=== PATIENT | female | born 1930 | race Caucasian/White ===

== ENCOUNTER 2016-09-12 10:08 | Emergency (ER) | payer MEDICARE, BC ==
[~2016-09-12 10:08] MED LIST: ACET650S3 PO; DIOV320T PO; MEGE400SUS PO; MIRA255PW PO; PERCOCET PO; SENO8.6T9 PO
--- NOTE | 2016-09-12 11:18 | EDDOCDS ---
Nurse's Notes [facility] Name: Cheli Keys Age: 86 yrs Sex: Female : 1930 Arrival Date: 09/12/2016 Time: 10:08 Bed TR8 Private MD: Jesus Shea Diagnosis: Disruption of traumatic injury wound repair-wound dehiscence following suture closure of left anterior leg laceration Presentation: 09/12 10:13 Presenting complaint: Patient states: pt c/o left lower leg pain since fall on ead 08/21/16. reports had sutures for laceration. pt reports onset of edema with drainage approx 1 week ago. pt has dressing applied to wound. Adult Sepsis Screening: The patient does not have new or worsening altered mentation. Patient's respiratory rate is less than 22. Systolic blood pressure is greater than 100. Patient has a qSOFA score of 0- Negative Sepsis Screen. Suicide/Homicide risk assessment- the patient denies having any suicidal and/or homicidal ideations and does not present with any other emotional, behavioral or mental health complaints. Status: Patient is not a kosher dietary service manager or dependent. Transition of care: patient was not received from another setting of care. 10:13 Acuity: SUZANNA Level 3 ead 10:13 Method Of Arrival: Walkin/Carried/Asstd ead Triage Assessment: 10:16 General: Appears in no apparent distress, comfortable, well nourished, well groomed, ead Behavior is appropriate for age, cooperative, pleasant. Pain: Location: left paez Pain currently is 2 out of 10 on a pain scale. Respiratory: Airway is patent Respiratory effort is even, unlabored, Denies shortness of breath. Derm: pt reports edema and drainage from wound to left paez, dressing in place on arrival. Musculoskeletal: Range of motion intact in all extremities. Historical: - Allergies: PENICILLINS (Rash); SULFA (SULFONAMIDES) (Jaundice); - Home Meds: 1. prednisone 20 mg oral tab 2 times per day - PMHx: Left Kidney Cancer; - PSHx: Appendectomy; Repair of AV Fistula left neck; Releas of abd adhesions; Hysterectomy; - Social history: Smoking status: Patient states was never smoker of tobacco. No barriers to communication noted, The patient speaks fluent Monegasque, Speaks appropriately for age. - Family history: Not pertinent. - : The pt / caregiver states he / she is not on anticoagulants. Home medication list is obtained from the patient. - Exposure Risk Screening:: None identified. Screenin:17 Screening information is obtained from the patient. Fall risk: No risks identified. ead Assistance ADL's: requires no assistance with activities of daily living. Abuse/DV Screen: The patient / caregiver reports he/she is: not in a situation that causes fear, pain or injury. Nutritional screening: No deficits noted. Advance Directives: Currently, there is a health care proxy, Nery Keys (). There is an active DNR order but there is no copy available at this time. There is a living will, but a copy is not available at this time. There is an active Power of Stone Polisher, Trevon ChopraGurdeep Keys (son). Advance directive information has been placed on a prior [facility] medical record, but the patient/ family does not know when. home support is adequate. Assessment: 11:14 General: Appears in no apparent distress, comfortable, Behavior is appropriate for age, ms18 cooperative. Pain: Denies pain. Neurological: Level of Consciousness is awake, alert, obeys commands, Oriented to person, place, time, Moves all extremities. Gait is steady, Speech is normal. Respiratory: Airway is patent Respiratory effort is even, unlabored. Derm: Skin is pink, warm & dry. Pt's wound on her lower L leg bandaged at this time. Vital Signs: 10:11 BP 143 / 72; Pulse 85; Resp 18 S; Temp 97.8(O); Pulse Ox 100% on R/A; Weight 58.06 kg dd6 (R); Height 5 ft. 5 in. (165.10 cm) (R); 10:11 Body Mass Index 21.30 (58.06 kg, 165.10 cm) dd6 Vitals: 10:11 Log In Time: September 12, 2016 at 10:09. dd6 ED Course: 10:11 Patient visited by Sachin Will PCA. dd6 10:11 Jesus Shea is Private Physician. dd6 10:11 Patient moved to Waiting dd6 10:12 Patient moved to Pre RCE dd6 10:15 Triage Initiated ead 10:18 Patient moved to Triage 1 ead 10:19 Patient moved to Triage 2 ead 10:21 Emir Kirk PA-C is PHCP. ar2 10:21 Natalie Mosqueda MD is Attending Physician. ar2 10:21 Patient visited by Emir Kirk PA-C. ar2 10:51 Ken Carbajal MD is Referral Physician. ar2 10:51 Jesus Shea is Referral Physician. ar2 11:12 Patient moved to TR8 ms18 11:14 The patient / caregiver is instructed regarding the plan of care and ED course. Patient ms18 has correct armband on for positive identification. Property sent home with patient. :Personal belongings accompany Pt. 11:14 No IV's were initiated during this patient's visit. No procedures done that require ms18 assistance. 11:15 [facility] Payment Agreement was scanned into [employer] and attached to record. jp5 Order Results: There are currently no results for this order. Outcome: 10:53 Discharge ordered by Provider. ar2 11:14 Discharge Assessment: Patient awake, alert and oriented x 3. No cognitive and/or ms18 functional deficits noted. Patient verbalized understanding of disposition instructions. patient administered narcotics - no. The following High Risk Discharge criteria are identified: None. Discharged to home ambulatory, with significant other. Condition: good Condition: stable Condition: improved. Discharge instructions given to patient, Instructed on discharge instructions, follow up and referral plans. wound care, Demonstrated understanding of instructions, Pt was receptive of discharge instructions/ teaching. No special radiology studies were completed. 11:17 Patient left the ED. ms18 Signatures: Emir Kirk PA-C PA-C ar2 Sachin Will, RODOLFO LEATHER CRAFTER dd6 Sherry Cerrato,RN RN Laurie Cain RN RN ms18 Mamadou Weeks jp5 [facility]
--- NOTE | 2016-09-12 11:18 | EDDOCDS ---
Physician Documentation [facility] Name: Cheli Keys Age: 86 yrs Sex: Female : 1930 Arrival Date: 09/12/2016 Time: 10:08 Bed TR8 Private MD: Jesus Shea Disposition: 09/12/16 10:53 Discharged to Home/Self Care. Impression: Disruption of traumatic injury wound repair - wound dehiscence following suture closure of left anterior leg laceration. - Condition is Stable. - Discharge Instructions: Dressing Change, Wound Care, [id number]. - Medication Reconciliation, Local Pharmacy Hours form. - Follow up: Ken Carbajal MD; When: Call to arrange an appointment; Reason: Recheck today's complaints, Continuance of care. Follow up: Jesus Shea; When: As needed; Reason: Recheck today's complaints, Continuance of care. Follow up: Emergency Department; When: As needed; Reason: signs of infection, severe swelling of the leg, fevers, or trouble breathing. - Problem is new. - Symptoms are unchanged. - Notes: keep wound clean, dry and covered. call Dr. Carbajal's office for continued wound care. you may need a referral from your primary care provider. change dressing once daily or more often as needed. return to ER if you develop worsening symptoms-signs of infection, severe pain, leg swelling, chest pain or trouble breathing Historical: - Allergies: PENICILLINS (Rash); SULFA (SULFONAMIDES) (Jaundice); - Home Meds: 1. prednisone 20 mg oral tab 2 times per day - PMHx: Left Kidney Cancer; - PSHx: Appendectomy; Repair of AV Fistula left neck; Releas of abd adhesions; Hysterectomy; - Social history: Smoking status: Patient states was never smoker of tobacco. No barriers to communication noted, The patient speaks fluent Wolof, Speaks appropriately for age. - Family history: Not pertinent. - : The pt / caregiver states he / she is not on anticoagulants. Home medication list is obtained from the patient. - Exposure Risk Screening:: None identified. Vital Signs: 09/12 10:11 BP 143 / 72; Pulse 85; Resp 18 S; Temp 97.8(O); Pulse Ox 100% on R/A; Weight 58.06 kg / dd6 128 lbs (R); Height 5 ft. 5 in. (165.10 cm) (R); 10:11 Body Mass Index 21.30 (58.06 kg, 165.10 cm) dd6 MDM: 11:15 [facility] Payment Agreement was scanned into [employer] and attached to record. jp5 11:15 Financial registration complete. jp5 Signatures: Emir Kirk PA-C PA-C ar2 Sherry CerratoRN RN Laurie Cain RN RN ms18 Mamadou Weeks jp5 The chart was reviewed and I authenticate all verbal orders and agree with the evaluation and treatment provided.Attachments: 11:15 [facility] Payment Agreement jp5 MTDD
--- NOTE | 2016-09-14 12:18 | EDDOCDS ---
Physician Documentation [facility] Name: Cheli Keys Age: 86 yrs Sex: Female : 1930 Arrival Date: 09/12/2016 Time: 10:08 Bed TR8 Private MD: Jesus Shea Disposition: 09/12/16 10:53 Discharged to Home/Self Care. Impression: Disruption of traumatic injury wound repair - wound dehiscence following suture closure of left anterior leg laceration. - Condition is Stable. - Discharge Instructions: Dressing Change, Wound Care, [id number]. - Medication Reconciliation, Local Pharmacy Hours form. - Follow up: Ken Carbajal MD; When: Call to arrange an appointment; Reason: Recheck today's complaints, Continuance of care. Follow up: Jesus Shea; When: As needed; Reason: Recheck today's complaints, Continuance of care. Follow up: Emergency Department; When: As needed; Reason: signs of infection, severe swelling of the leg, fevers, or trouble breathing. - Problem is new. - Symptoms are unchanged. - Notes: keep wound clean, dry and covered. call Dr. Carbajal's office for continued wound care. you may need a referral from your primary care provider. change dressing once daily or more often as needed. return to ER if you develop worsening symptoms-signs of infection, severe pain, leg swelling, chest pain or trouble breathing Historical: - Allergies: PENICILLINS (Rash); SULFA (SULFONAMIDES) (Jaundice); - Home Meds: 1. prednisone 20 mg oral tab 2 times per day - PMHx: Left Kidney Cancer; - PSHx: Appendectomy; Repair of AV Fistula left neck; Releas of abd adhesions; Hysterectomy; - Social history: Smoking status: Patient states was never smoker of tobacco. No barriers to communication noted, The patient speaks fluent Ukrainian, Speaks appropriately for age. - Family history: Not pertinent. - : The pt / caregiver states he / she is not on anticoagulants. Home medication list is obtained from the patient. - Exposure Risk Screening:: None identified. Vital Signs: 09/12 10:11 BP 143 / 72; Pulse 85; Resp 18 S; Temp 97.8(O); Pulse Ox 100% on R/A; Weight 58.06 kg / dd6 128 lbs (R); Height 5 ft. 5 in. (165.10 cm) (R); 10:11 Body Mass Index 21.30 (58.06 kg, 165.10 cm) dd6 MDM: 11:15 [facility] Payment Agreement was scanned into [employer] and attached to record. jp5 11:15 Financial registration complete. jp5 14:56 T-Sheet-- Draft Copy was scanned into [employer] and attached to record. gb Signatures: Edwige Haines, Reg Reg gb Emir Kirk, PA-C PA-C ar2 Sherry Cerrato,RN RN Laurie CainRN RN ms18 Mamadou Weeks jp5 The chart was reviewed and I authenticate all verbal orders and agree with the evaluation and treatment provided.Attachments: 11:15 [facility] Payment Agreement jp5 14:56 T-Sheet-- Draft Copy gb Chart Complete MTDD
--- NOTE | 2016-09-14 12:18 | EDDOCDS ---
Nurse's Notes [facility] Name: Cheli Keys Age: 86 yrs Sex: Female : 1930 Arrival Date: 09/12/2016 Time: 10:08 Bed TR8 Private MD: Jesus Shea Diagnosis: Disruption of traumatic injury wound repair-wound dehiscence following suture closure of left anterior leg laceration Presentation: 09/12 10:13 Presenting complaint: Patient states: pt c/o left lower leg pain since fall on ead 08/21/16. reports had sutures for laceration. pt reports onset of edema with drainage approx 1 week ago. pt has dressing applied to wound. Adult Sepsis Screening: The patient does not have new or worsening altered mentation. Patient's respiratory rate is less than 22. Systolic blood pressure is greater than 100. Patient has a qSOFA score of 0- Negative Sepsis Screen. Suicide/Homicide risk assessment- the patient denies having any suicidal and/or homicidal ideations and does not present with any other emotional, behavioral or mental health complaints. Status: Patient is not a environmental services attendant or dependent. Transition of care: patient was not received from another setting of care. 10:13 Acuity: SUZANNA Level 3 ead 10:13 Method Of Arrival: Walkin/Carried/Asstd ead Triage Assessment: 10:16 General: Appears in no apparent distress, comfortable, well nourished, well groomed, ead Behavior is appropriate for age, cooperative, pleasant. Pain: Location: left paez Pain currently is 2 out of 10 on a pain scale. Respiratory: Airway is patent Respiratory effort is even, unlabored, Denies shortness of breath. Derm: pt reports edema and drainage from wound to left paez, dressing in place on arrival. Musculoskeletal: Range of motion intact in all extremities. Historical: - Allergies: PENICILLINS (Rash); SULFA (SULFONAMIDES) (Jaundice); - Home Meds: 1. prednisone 20 mg oral tab 2 times per day - PMHx: Left Kidney Cancer; - PSHx: Appendectomy; Repair of AV Fistula left neck; Releas of abd adhesions; Hysterectomy; - Social history: Smoking status: Patient states was never smoker of tobacco. No barriers to communication noted, The patient speaks fluent Japanese, Speaks appropriately for age. - Family history: Not pertinent. - : The pt / caregiver states he / she is not on anticoagulants. Home medication list is obtained from the patient. - Exposure Risk Screening:: None identified. Screenin:17 Screening information is obtained from the patient. Fall risk: No risks identified. ead Assistance ADL's: requires no assistance with activities of daily living. Abuse/DV Screen: The patient / caregiver reports he/she is: not in a situation that causes fear, pain or injury. Nutritional screening: No deficits noted. Advance Directives: Currently, there is a health care proxy, Nery Keys (). There is an active DNR order but there is no copy available at this time. There is a living will, but a copy is not available at this time. There is an active Power of Workforce Management Analyst, Trevon ChopraGurdeep Keys (son). Advance directive information has been placed on a prior [facility] medical record, but the patient/ family does not know when. home support is adequate. Assessment: 11:14 General: Appears in no apparent distress, comfortable, Behavior is appropriate for age, ms18 cooperative. Pain: Denies pain. Neurological: Level of Consciousness is awake, alert, obeys commands, Oriented to person, place, time, Moves all extremities. Gait is steady, Speech is normal. Respiratory: Airway is patent Respiratory effort is even, unlabored. Derm: Skin is pink, warm & dry. Pt's wound on her lower L leg bandaged at this time. Vital Signs: 10:11 BP 143 / 72; Pulse 85; Resp 18 S; Temp 97.8(O); Pulse Ox 100% on R/A; Weight 58.06 kg dd6 (R); Height 5 ft. 5 in. (165.10 cm) (R); 10:11 Body Mass Index 21.30 (58.06 kg, 165.10 cm) dd6 Vitals: 10:11 Log In Time: September 12, 2016 at 10:09. dd6 ED Course: 10:11 Patient visited by Sachin Will PCA. dd6 10:11 Jesus Shea is Private Physician. dd6 10:11 Patient moved to Waiting dd6 10:12 Patient moved to Pre RCE dd6 10:15 Triage Initiated ead 10:18 Patient moved to Triage 1 ead 10:19 Patient moved to Triage 2 ead 10:21 Emir Kirk PA-C is PHCP. ar2 10:21 Natalie Mosqueda MD is Attending Physician. ar2 10:21 Patient visited by Emir Kirk PA-C. ar2 10:51 Ken Carbajal MD is Referral Physician. ar2 10:51 Jesus Shea is Referral Physician. ar2 11:12 Patient moved to TR8 ms18 11:14 The patient / caregiver is instructed regarding the plan of care and ED course. Patient ms18 has correct armband on for positive identification. Property sent home with patient. :Personal belongings accompany Pt. 11:14 No IV's were initiated during this patient's visit. No procedures done that require ms18 assistance. 11:15 [facility] Payment Agreement was scanned into [employer] and attached to record. jp5 14:56 T-Sheet-- Draft Copy was scanned into [employer] and attached to record. gb Order Results: There are currently no results for this order. Outcome: 10:53 Discharge ordered by Provider. ar2 11:14 Discharge Assessment: Patient awake, alert and oriented x 3. No cognitive and/or ms18 functional deficits noted. Patient verbalized understanding of disposition instructions. patient administered narcotics - no. The following High Risk Discharge criteria are identified: None. Discharged to home ambulatory, with significant other. Condition: good Condition: stable Condition: improved. Discharge instructions given to patient, Instructed on discharge instructions, follow up and referral plans. wound care, Demonstrated understanding of instructions, Pt was receptive of discharge instructions/ teaching. No special radiology studies were completed. 11:17 Patient left the ED. ms18 Signatures: Edwige Haines, Reg Reg gb Emir Kirk PA-C PA-C ar2 Sachin Will, MEDICAL OBSERVER MEDICAL OBSERVER dd6 Sherry Cerrato,RN RN Laurie Cain,JULIET RN ms18 Mamadou Weeks jp5 Chart Complete MTDD
--- NOTE | 2016-09-14 12:18 | EDDOCDS ---
Physician Documentation [facility] Name: Cheli Keys Age: 86 yrs Sex: Female : 1930 Arrival Date: 09/12/2016 Time: 10:08 Bed TR8 Private MD: Jesus Shea Disposition: 09/12/16 10:53 Discharged to Home/Self Care. Impression: Disruption of traumatic injury wound repair - wound dehiscence following suture closure of left anterior leg laceration. - Condition is Stable. - Discharge Instructions: Dressing Change, Wound Care, [id number]. - Medication Reconciliation, Local Pharmacy Hours form. - Follow up: Ken Carbajal MD; When: Call to arrange an appointment; Reason: Recheck today's complaints, Continuance of care. Follow up: Jesus Shea; When: As needed; Reason: Recheck today's complaints, Continuance of care. Follow up: Emergency Department; When: As needed; Reason: signs of infection, severe swelling of the leg, fevers, or trouble breathing. - Problem is new. - Symptoms are unchanged. - Notes: keep wound clean, dry and covered. call Dr. Carbajal's office for continued wound care. you may need a referral from your primary care provider. change dressing once daily or more often as needed. return to ER if you develop worsening symptoms-signs of infection, severe pain, leg swelling, chest pain or trouble breathing Historical: - Allergies: PENICILLINS (Rash); SULFA (SULFONAMIDES) (Jaundice); - Home Meds: 1. prednisone 20 mg oral tab 2 times per day - PMHx: Left Kidney Cancer; - PSHx: Appendectomy; Repair of AV Fistula left neck; Releas of abd adhesions; Hysterectomy; - Social history: Smoking status: Patient states was never smoker of tobacco. No barriers to communication noted, The patient speaks fluent Telugu, Speaks appropriately for age. - Family history: Not pertinent. - : The pt / caregiver states he / she is not on anticoagulants. Home medication list is obtained from the patient. - Exposure Risk Screening:: None identified. Vital Signs: 09/12 10:11 BP 143 / 72; Pulse 85; Resp 18 S; Temp 97.8(O); Pulse Ox 100% on R/A; Weight 58.06 kg / dd6 128 lbs (R); Height 5 ft. 5 in. (165.10 cm) (R); 10:11 Body Mass Index 21.30 (58.06 kg, 165.10 cm) dd6 MDM: 11:15 [facility] Payment Agreement was scanned into [email or web address] and attached to record. jp5 11:15 Financial registration complete. jp5 14:56 T-Sheet-- Draft Copy was scanned into [email or web address] and attached to record. gb Signatures: Edwige Haines, Reg Reg gb Emir Kirk, PA-C PA-C ar2 Sherry Cerrato,RN RN Laurie CainRN RN ms18 Mamadou Weeks jp5 The chart was reviewed and I authenticate all verbal orders and agree with the evaluation and treatment provided.Attachments: 11:15 [facility] Payment Agreement jp5 14:56 T-Sheet-- Draft Copy gb Chart Complete MTDD
== END 2016-09-12 11:17 | disposition home or self-care (01) ==
LOC: M ED 10:08
DX: T81.31XA Disruption of external operation (surgical) wound, not elsewhere classified, initial encounter (principal); X58.XXXA Exposure to other specified factors, initial encounter; Y92.89 Other specified places as the place of occurrence of the external cause; Y93.89 Activity, other specified; Y99.8 Other external cause status; C64.2 Malignant neoplasm of left kidney, except renal pelvis; Z90.79 Acquired absence of other genital organ(s); Z90.89 Acquired absence of other organs; Z79.899 Other long term (current) drug therapy; Z88.0 Allergy status to penicillin; Z88.2 Allergy status to sulfonamides

== ENCOUNTER 2016-09-18 09:58 | Inpatient (IN) | payer MEDICARE, BC ==
[2016-09-18] VITALS (7 sets, daily range): BP systolic 89–158; BP diastolic 49–76
[~2016-09-18] VITALS: Ht 165.1 cm; Wt 59.3 kg
[2016-09-18 10:44] LABS: ABG BASE EXCESS 1.6 (-2.0-2.0); ABG DEVICE NASAL CANN; ABG HCO3 23.8 MEQ/L (22.0-26.0); ABG PARTIAL PRESSURE CO2 30.5 mmHg (35.0-45.0); ABG PARTIAL PRESSURE O2 61.1 mmHg (75.0-100.0); ABG STANDARD HCO3 25.8 MEQ/L (22.0-26.0); ABG TOTAL CO2 24.8 MEQ/L (23.0-31.0); ABG pH (ARTERIAL) 7.511 UNITS (7.350-7.450)
[2016-09-18] MEDS ORDERED: ACETAMINOPHEN 325 MG TAB As Ordered ONE (11:12)
[2016-09-18] MEDS ORDERED: CEFEPIME INJ 2 GM VIAL (MAXIPIME) (J0692) As Ordered ONE (11:17)
[2016-09-18 11:42] LABS: MEAN CORPUSCULAR HEMOGLOBIN 31.4 pg (27.0-33.0); MEAN CORPUSCULAR HGB CONC 32.6 g/dl (32.0-36.5); MEAN CORPUSCULAR VOLUME 96.3 fl (80.0-96.0); PLATELET COUNT, AUTOMATED 169 k/mm3 (150-450); RED CELL DISTRIBUTION WIDTH 14.6 % (11.5-14.5); WHITE BLOOD COUNT 4.3 K/mm3 (4.0-10.0)
--- NOTE | 2016-09-18 11:45 | REP ---
AP portable semi upright chest radiograph 09/18/2016 Indication: Shortness of breath Comparison: PA and lateral chest 07/03/12, CT of the abdomen and pelvis 10/07/2014, CT chest 07/08/2013 There is a right IJ venous Port-A-Cath with tip in the expected location of superior vena cava. There is underlying hyperinflation consistent with COPD. Areas of alveolar infiltrate are seen within the medial segment of the right middle lobe and in the left lower lobe distribution. There are no pleural effusions. Impression: Right IJ venous Port-A-Cath with tip in the expected location of the SVC. Infiltrates identified in the medial segment right middle lobe and in the left lower lobe. Follow-up to resolution recommended. COPD Signed by Aaliyah Alcantara MD 09/18/2016 11:36 A
[2016-09-18 11:48] LABS: INR 1.13
[2016-09-18 11:54] LABS: BANDS 7 % (< 11)
[2016-09-18 12:00] LABS: ALBUMIN 3.1 GM/DL (3.2-5.2); ALBUMIN/GLOBULIN RATIO 0.91 (1.00-1.93); BILIRUBIN,DIRECT 0.4 MG/DL (0.0-0.2); BILIRUBIN,TOTAL 1.5 MG/DL (0.2-1.0); CALCIUM LEVEL 7.9 MG/DL (8.8-10.2); CREATININE FOR GFR 1.32 MG/DL (0.55-1.02); GLOMERULAR FILTRATION RATE 40.7 (>32); POTASSIUM SERUM 3.5 MEQ/L (3.5-5.1); TOTAL PROTEIN 6.5 GM/DL (6.4-8.2)
[2016-09-18] MEDS ORDERED: PRED10TA PO (12:08)
[2016-09-18] MEDS ORDERED: ACET50TAOT PO (12:08)
[2016-09-18] MEDS ORDERED: BENA25CA4 PO (12:08)
--- NOTE | 2016-09-18 13:15 | ECGEPIP ---
Stationary ECG Study [facility] - ED Test Date: 2016-09-18 Pat Name: KOSTA JOLLY Department: Room: - Gender: F Senior Architect: ct : 1930 Requested By: LIZBET Mendez Order Number: [id number] Reading MD: Ashley Rico Measurements Intervals [place] Rate: 116 P: 63 HI: 80 QRS: 19 QRSD: 90 T: 67 QT: 305 QTc: 424 Interpretive Statements SINUS TACHYCARDIA WITH SHORT HI INTERVAL ABNORMAL RHYTHM ECG NSTTW ABNORMALITY INCREASED RATE 12/07/11 Electronically Signed On 09-18-2016 13:15:46 EST by Ashley Rico
[2016-09-18] MEDS ORDERED: ACETAMINOPHEN 325 MG TAB PO PRN (15:15)
[2016-09-18] MEDS ORDERED: SODIUM CHLORIDE 0.9% 1000 ML IV ONE (17:00)
--- NOTE | 2016-09-18 17:10 | REP ---
CT of the chest without IV contrast: Comparisons are the portable plain film study of the chest earlier today and chest CT dated 07/08/2013. There are bilateral lower lobe infiltrates, not present on the prior studies. There are infiltrates in the medial lateral segments of the right middle lobe, not present previously. There is no pleural effusion. Thoracic aorta is unremarkable. Cardiac size normal. I suspect there is a small pericardial effusion measuring 7 mm depth, not present on the prior CT studies. There is no mediastinal adenopathy. There are a few normal-sized nodes. The nodes are more numerous than on the comparison CT. In the absence of IV contrast the study is insensitive for hilar adenopathy. There is no axillary adenopathy. The visualized upper abdominal contents are unremarkable. Impression: Bilateral infiltrates as described. No pleural effusion. Normal size mediastinal nodes have increased in number from the prior CT. Signed by Ochoa Stafford MD 09/18/2016 05:02 P
--- NOTE | 2016-09-18 17:16 | EDDOCDS ---
Nurse's Notes [facility] Name: Kosta Keys Age: 86 yrs Sex: Female : 1930 Arrival Date: 09/18/2016 Time: 09:58 Bed 3 Private MD: Jesus Shea Diagnosis: Pneumonia, unspecified organism;Hypotension Presentation: 09/18 10:02 Presenting complaint: EMS states: called to residence by patient's . Allegedly, jc4 patient was attempting to get to toilet, and fell, possibly losing consciousness. assisted patient back to bed. Per EMS, patient complains of weakness. Had been incontinent of stool at home. Care prior to arrival: See EMS report. Glucose check. 95 mg/dl. 10:02 Method Of Arrival: Ambulance jc4 10:05 Presenting complaint: Patient states: "I've been incontinent of urine and feces and I jc4 fell in the bathroom trying to get to the bathroom. I just feel so weak". The last date and time the patient was known to be well was was at an unknown time on an unknown date. No acute neurological deficit is noted. The patients blood glucose was checked before arriving to the hospital and was found to be normal. Suicide/Homicide risk assessment- the patient denies having any suicidal and/or homicidal ideations and does not present with any other emotional, behavioral or mental health complaints. Status: Patient is not a service mechanic or dependent. Transition of care: patient was not received from another setting of care. 10:05 Acuity: SUZANNA Level 3 jc4 10:58 Adult Sepsis Screening: Patient has new or worsening altered mentation (1 point). jc4 Patient's respiratory rate is less than 22. Systolic blood pressure is less than or equal to 100 (1 point). Patient has a qSOFA score of 2. Patient has cough and/or SOB- Positive Sepsis Screen. Notified Lizbet Bishop MD Patient made SUZANNA Level 2. Patient placed in exam room. Charge nurse notified. 10:58 Acuity: SUZANNA Level 2 jc4 Triage Assessment: 10:14 The onset of the patients symptoms was more than three hours ago. General: Appears in jc4 no apparent distress. Pain: Denies pain. Neurological: Level of Consciousness is awake, alert, Reports dizziness. Respiratory: Reports cough that is non-productive. Historical: - Allergies: PENICILLINS (Rash); SULFA (SULFONAMIDES) (Jaundice); - Home Meds: 1. prednisone 10 mg oral tab 1 tab once daily (Last dose: 09/17/2016) - PMHx: Left Kidney Cancer; Hypertension; - PSHx: Appendectomy; Hysterectomy; Release of abd adhesions; - Social history: Smoking status: Patient states was never smoker of tobacco. No barriers to communication noted, The patient speaks fluent Frisian. - Family history: Not pertinent. - : The pt / caregiver states he / she is not on anticoagulants. Home medication list is obtained from the patient. - Exposure Risk Screening:: None identified. Screenin:29 Screening information is obtained from the patient. Fall risk: At risk due to prior ja5 history of falls. Assistance ADL's: requires no assistance with activities of daily living. Abuse/DV Screen: The patient / caregiver reports he/she is: not in a situation that causes fear, pain or injury. Nutritional screening: On. Advance Directives: Currently, there is a health care proxy, Nikki. Neal Keys, . There is an active DNR order There is no living will. There is an active Power of Manager Of Environmental Services, Nery Velezlyvijay, . home support is adequate. Assessment: 11:25 General: Appears in no apparent distress, Behavior is drowsy. Neurological: Level of ja5 Consciousness is awake, lethargic, Oriented to person, place, time. Cardiovascular: Capillary refill < 3 seconds Heart tones S1 S2 present. Respiratory: Airway is patent Respiratory effort is even, unlabored, Respiratory pattern is regular, symmetrical, Breath sounds are clear bilaterally. GI: Reports incontinence. : Reports incontinence. Derm: Skin is fragile, Skin is pink, warm & dry. 12:17 General: Pt is lethargic. B/P 76/41 at this time. Lungs clear. 2nd IVF 500 ml bolus jc4 infusing at this time. at bedside. 13:32 General: Patient resting comfortably in stretcher, still hypotensive, 500 ml IV bolus ja5 #[address] scan.. 13:49 General: Pt returned from CT. Tolerated well. Pt resting comfortably in bed. States "I ld5 feel good". Fluids infusing. Will continue to monitor. 14:17 General: Pt resting on stretcher. No distress noted at this time. Pt alert, speaking jc4 with . Color pink, skin warm and dry. Respirations easy and full. dredge or barge shore hand - sinus rhythm without ectopy. Respirations easy and full. Breath sounds with rales noted in based. Dr. Bishop made aware. Spoke with Dr. Colón regarding patient condition. Received orders to maintain IVF at 100 cc/hour. 15:44 General: Patient in stretcher resting, alert upon arousal, denies pain and stated she ja5 is comfortable. IV fluids infusing at 100 ml/hr with BP 112/56 at this time.. 16:18 General: Patient asleep, alert upon arousal, denies pain at this time. Nasal cannula ja5 placed on patient 4/L/min O2 and is sustaining O2 sat 91-95%, will continue to monitor. . 16:31 General: Patient O2 sats did not tolerate the nasal cannula, patient was placed on a ja5 venti mask at 50% O2 and is sustaining O2 sat 95% at this time. . 17:06 General: Appears in no apparent distress, comfortable, Behavior is cooperative, drowsy. ja5 Neurological: Level of Consciousness is awake, Oriented to person, place, time. Cardiovascular: Capillary refill < 3 seconds. Respiratory: Airway is patent Respiratory effort is even, unlabored, Respiratory pattern is regular, symmetrical, Breath sounds with rales expiratory bilaterally. Derm: Skin is intact, is fragile, Skin is pale. Vital Signs: 10:17 BP 100 / 54; Pulse 122; Resp 18; Temp 101.9(TE); Pulse Ox 83% on 5 lpm NC; nb2 10:35 Weight 71.21 kg (M); Height 5 ft. 4 in. (162.56 cm) (R); ja5 10:39 BP 90 / 51 (auto/); jc4 10:40 Pulse 110 MON; Pulse Ox 95% ; jc4 10:45 BP 97 / 47 (auto/); jc4 10:46 Pulse 114 MON; Pulse Ox 92% ; jc4 10:51 BP 110 / 56 (auto/); jc4 10:53 Pulse 112 MON; Pulse Ox 92% ; jc4 11:06 BP 124 / 62 (auto/); jc4 11:10 Pulse 122 MON; Pulse Ox 94% ; jc4 11:36 BP 112 / 56 (auto/); jc4 11:37 Pulse 114 MON; Pulse Ox 97% ; jc4 11:51 BP 76 / 44 (auto/); jc4 11:52 Pulse 104 MON; Pulse Ox 97% ; jc4 12:05 Pulse 110 MON; Pulse Ox 98% ; ja5 12:06 BP 75 / 40 (auto/); jc4 12:06 Pulse 106 MON; Pulse Ox 99% ; jc4 12:06 BP 77 / 42 (auto/); ja5 12:07 BP 79 / 44 (auto/); jc4 12:08 Pulse 107 MON; Pulse Ox 99% ; jc4 12:10 BP 76 / 41 (auto/); jc4 12:11 Pulse 103 MON; Pulse Ox 97% ; jc4 12:16 BP 76 / 41; Pulse 99; Resp 20; Pulse Ox 98% on Mask: Non-rebreather mask; jc4 12:21 BP 82 / 47 (auto/); jc4 12:22 Pulse 100 MON; Pulse Ox 99% ; jc4 12:36 BP 80 / 44 (auto/); jc4 12:37 Pulse 96 MON; Pulse Ox 99% ; jc4 12:51 BP 78 / 41 (auto/); jc4 12:52 Pulse 100 MON; Pulse Ox 99% ; jc4 13:06 BP 84 / 45 (auto/); jc4 13:07 Pulse 94 MON; Pulse Ox 98% ; jc4 13:21 BP 83 / 44 (auto/); jc4 13:21 Pulse 93 MON; Pulse Ox 98% ; jc4 13:36 BP 78 / 39 (auto/); ld5 13:37 Pulse 90 MON; Pulse Ox 100% on Non-rebreather mask; ld5 13:49 Temp 98.5(O); ld5 13:51 BP 82 / 49 (auto/); ld5 13:51 Pulse 91 MON; Pulse Ox 99% on Non-rebreather mask; ld5 14:06 BP 82 / 53 (auto/); jc4 14:07 Pulse 89 MON; Pulse Ox 98% ; jc4 14:21 BP 97 / 50 (auto/); jc4 14:22 Pulse 86 MON; Pulse Ox 97% ; jc4 14:36 BP 87 / 51 (auto/); jc4 14:36 Pulse 88 MON; Pulse Ox 97% ; jc4 14:51 BP 91 / 50 (auto/); ja5 14:51 Pulse 88 MON; Pulse Ox 98% ; ja5 14:55 BP 91 / 50; Pulse 86; Resp 16; Pulse Ox 98% on Non-rebreather mask; jc4 15:06 BP 84 / 48 (auto/); ja5 15:06 Pulse 87 MON; Pulse Ox 98% ; ja5 15:21 BP 89 / 50 (auto/); ja5 15:21 Pulse 84 MON; Pulse Ox 98% ; ja5 15:36 BP 112 / 56 (auto/); ja5 15:36 Pulse 89 MON; Pulse Ox 98% ; ja5 15:51 BP 112 / 56 (auto/); ja5 15:51 Pulse 87 MON; Pulse Ox 98% ; ja5 16:06 BP 114 / 57 (auto/); ja5 16:06 Pulse 84 MON; Pulse Ox 98% ; ja5 16:21 BP 98 / 51 (auto/); ja5 16:21 Pulse 87 MON; Pulse Ox 89% ; ja5 16:36 BP 99 / 56 (auto/); ja5 16:37 Pulse 84 MON; Pulse Ox 94% ; ja5 17:01 BP 102 / 57; Pulse 88; Resp 14 S; Temp 97.5(TE); Pulse Ox 94% on 50% Venturi mask; Pain ja5 0/10; 10:35 Body Mass Index 26.95 (71.21 kg, 162.56 cm) ja5 Vitals: 10:17 Log In Time N/A - ambulance arrival. nb2 14:55 Glucose Measurement D-stick done by EMS. 4 ED Course: 09:59 Patient visited by Ninoska Arellano PCA. ar3 09:59 Allison Baldwin,RN is Primary Nurse. ar3 09:59 Sandra Nash, RN is Primary Nurse. ar3 09:59 Jesus Shea is Private Physician. ar3 09:59 Patient moved to Waiting ar3 09:59 Patient moved to 10 ar3 10:08 Triage Initiated jc4 10:12 Lizbet Bishop MD is Attending Physician. br1 10:17 Patient visited by Jacquelin Hernandez. nb2 10:18 Basic Metabolic Profile Sent. nb2 10:28 Patient visited by Lizbet Bishop MD. br1 10:29 Patient moved to [facility] 10:30 The patient / caregiver is instructed regarding the plan of care and ED course. jc4 10:33 dredge or barge shore hand on. Pulse ox on. NIBP on. ct3 10:33 EKG done. (by ED staff). Reviewed by Lizbet Bishop MD. ct3 10:37 Patient visited by Autumn Casanova PCA. ct3 10:40 -Arterial Blood Gas Sent. lb 10:41 [facility] Payment Agreement was scanned into [employer] and attached to record. mpb 10:54 Patient visited by Autumn Casanova PCA. ct3 10:54 Accompanied by Family Member, Patient has correct armband on for positive ct3 identification. Placed in gown. Bed in low position. Call light in reach. Side rails up X2. 10:59 Inserted saline lock: 20 gauge in left forearm The patient tolerated the procedure well.jc4 11:10 Urinalysis Sent. jc4 11:10 Urine Culture Sent. jc4 11:10 Chicas cath inserted 16 Fr. Balloon inflated. To gravity drainage. Urine specimen jc4 collected. Patient tolerated well. 11:33 Patient visited by Allison Baldwin,JULIET. ja5 11:34 LIVER PROFILE Sent. jc4 11:34 BLOOD CULTURES Sent. jc4 11:34 PT/INR Sent. jc4 11:34 PTT Sent. jc4 11:34 Lactic Acid (Baird tube on ice) Sent. jc4 11:34 BNP Sent. jc4 11:34 CBC with Diff Sent. jc4 11:34 Cardiac Injury Profile Sent. jc4 11:34 Troponin Sent. jc4 11:35 Inserted saline lock: 20 gauge in left antecubital area The patient tolerated the jc4 procedure well. 11:59 Chest, 1 View Returned. EDMS 12:16 Patient visited by Sandra Nash, JULIET. jc4 12:19 DIFFERENTIAL NO CHARGE Sent. jc4 12:20 Chrissy Colón is Hospitalizing Provider. br1 13:43 EKG-ADULT Returned. EDMS 13:50 Patient visited by Radha Milian,JULIET. ld5 15:10 No procedures done that require assistance. jc4 Administered Medications: 10:56 Drug: NS 0.9% (Sepsis- hypotension or lactate >4mmol/L, 30ml/kg) 500 ml Route: IV; ja5 Rate: bolus; Site: left forearm; 12:16 Follow up: BP 76 / 41; Pulse 99 bpm; Resp 20 bpm; Pulse Ox 98% Mask: Non-rebreather jc4 mask; IV Intake: 500ml 14:16 Follow up: IV Intake: 500ml jc4 11:15 Drug: Acetaminophen 650 mg [acetaminophen 325 mg tablet (2 tabs)] Route: PO; ja5 13:49 Follow up: Temp 98.5 Oral; Response: Temperature is decreased ld5 12:44 Drug: Cefepime 2 grams [cefepime 2 gram solution for injection] Route: IVPB; Rate: 100 ja5 mL/hr; Infused Over: 30 mins; Site: left femoral; 14:33 Drug: NS 0.9% 1000 ml [sodium chloride 0.9 % intravenous solution] Route: IV; Rate: 100 jc4 mL/hr; Site: left antecubital; 17:05 Follow up: IV Status: Infusion continued upon admit; IV Intake: 200ml ja5 Intake: 12:16 IV: 500.00ml; Total: 500.00ml. jc4 13:20 IV: 500.00ml (NS); Total: 1000.00ml. jc4 14:16 IV: 500.00ml; Total: 1500.00ml. jc4 17:05 IV: 200.00ml; Total: 1700.00ml. ja5 Output: 13:49 Urine: 500.00ml (Chicas); Total: 500.00ml. ld5 17:04 Urine: 100.00ml (Chicas); Total: 600.00ml. ja5 RT: 10:40 ABG's drawn from right radial artery allens test done and positive pressure held for 5 lb minutes no bleeding noted pressure bandage applied specimen sent pt. tolerated well. Order Results: Lab Order: Basic Metabolic Profile; SPEC'M 09/18/16 11:30 Test: GLUCOSE, FASTING; Value: 82; Range: 83-110; Abnormal: Below low normal; Units: MG/DL; Status: F Test: BLOOD UREA NITROGEN; Value: 30; Range: 7-18; Abnormal: Above high normal; Units: MG/DL; Status: F Test: CREATININE FOR GFR; Value: 1.32; Range: 0.55-1.02; Abnormal: Above high normal; Units: MG/DL; Status: F Test: GLOMERULAR FILTRATION RATE; Value: 40.7; Range: >32; Status: F Test: SODIUM LEVEL; Value: 134; Range: 136-145; Abnormal: Below low normal; Units: MEQ/L; Status: F Test: POTASSIUM SERUM; Value: 3.5; Range: 3.5-5.1; Units: MEQ/L; Status: F Test: CHLORIDE LEVEL; Value: 94; Range: 98-107; Abnormal: Below low normal; Units: MEQ/L; Status: F Test: CARBON DIOXIDE LEVEL; Value: 31; Range: 21-32; Units: MEQ/L; Status: F Test: ANION GAP; Value: 9; Range: 8-16; Units: MEQ/L; Status: F Test: CALCIUM LEVEL; Value: 7.9; Range: 8.8-10.2; Abnormal: Below low normal; Units: MG/DL; Status: F Test Note: ; Units are mL/min/1.73 m2 Chronic Kidney Disease Staging per NKF: Stage I & II GFR >=60 Normal to Mildly Decreased Stage III GFR 30-59 Moderately Decreased Stage IV GFR 15-29 Severely Decreased Stage V GFR <15 Very Little GFR Left ESRD GFR <15 on DRUM DRIER OPERATOR Lab Order: CBC with Diff; SPEC'M 09/18/16 11:30 Test: WHITE BLOOD COUNT; Value: 4.3; Range: 4.0-10.0; Units: K/mm3; Status: F Test: RED BLOOD COUNT; Value: 4.23; Range: 4.00-5.40; Units: M/mm3; Status: F Test: HEMOGLOBIN; Value: 13.3; Range: 12.0-16.0; Units: g/dl; Status: F Test: HEMATOCRIT; Value: 40.7; Range: 36.0-47.0; Units: %; Status: F Test: MEAN CORPUSCULAR VOLUME; Value: 96.3; Range: 80.0-96.0; Abnormal: Above high normal; Units: fl; Status: F Test: MEAN CORPUSCULAR HEMOGLOBIN; Value: 31.4; Range: 27.0-33.0; Units: pg; Status: F Test: MEAN CORPUSCULAR HGB CONC; Value: 32.6; Range: 32.0-36.5; Units: g/dl; Status: F Test: RED CELL DISTRIBUTION WIDTH; Value: 14.6; Range: 11.5-14.5; Abnormal: Above high normal; Units: %; Status: F Test: PLATELET COUNT, AUTOMATED; Value: 169; Range: 150-450; Units: k/mm3; Status: F Test: PLATELET ESTIMATE; Range: NORMAL; Status: I Test: NEUTROPHILS; Value: 57; Range: 35-75; Units: %; Status: F Test: BANDS; Value: 7; Range: < 11; Units: %; Status: F Test: LYMPHOCYTES; Value: 13; Range: 16-52; Abnormal: Below low normal; Units: %; Status: F Test: MONOCYTES; Value: 6; Range: 0-8; Units: %; Status: F Test: METAMYELOCYTES; Value: 2; Range: 0-0; Abnormal: Above high normal; Units: %; Status: F Test: ATYPICAL LYMPH; Value: 15; Range: 0-5; Abnormal: Above high normal; Units: %; Status: F Test: RBC MORPHOLOGY; Value: NORMAL; Status: F Lab Order: Cardiac Injury Profile; [facility] 09/18/16 11:30 Test: CPK CREATINE PHOSPHOKINASE; Value: 61; Range: 26-192; Units: U/L; Status: F Test: CK-MB VALUE MASS; Value: 1.0; Range: 0.0-3.6; Units: NG/ML; Status: F Test: MB/CK RELATIVE INDEX; Value: 1.63; Range: < OR =4; Status: F Test Note: ; DIAGNOSIS CRITERIA MMB ng/ml Relative Index (RI) NON-AMI < or = 5 N/A BAIRD ZONE > 5 < or = 4 AMI > 5 > 4 Lab Order: Troponin; SPEC'M 09/18/16 11:30 Test: TROPONIN I; Value: 0.07; Range: < 0.10; Units: NG/ML; Status: F Test Note: ; Troponin I Reference Interval for Vacation Your [address] LOCI: 99th Percentile= 0.00-0.045 ng/ml Risk Stratification: <= 0.10 ng/ml Decreased Risk for Adverse Clinical Events. 0.10-1.50 ng/ml Increased Risk for Adverse Clinical Events. Evaluation of additional criterion and/or repeat testing in 2-6 hours is suggested to rule out myocardial damage. >= 1.50 ng/ml Indicative of Myocardial Injury. Lab Order: BNP; SPEC09/18/16 11:30 Test: BRAIN NATRIURETIC PEPTIDE; Value: 212; Range: <100; Abnormal: Above high normal; Units: PG/ML; Status: F Lab Order: Lactic Acid (Baird tube on ice); SPEC09/18/16 11:30 Test: LACTIC ACID LEVEL, LACTATE; Value: 3.0; Range: 0.4-2.0; Abnormal: Above upper panic limits; Units: MMOL/L; Status: F Lab Order: -Arterial Blood Gas; 09/18/16 10:36 Test: ABG pH (ARTERIAL); Value: 7.511; Range: 7.350-7.450; Abnormal: Above high normal; Units: UNITS; Status: F Test: ABG PARTIAL PRESSURE CO2; Value: 30.5; Range: 35.0-45.0; Abnormal: Below low normal; Units: mmHg; Status: F Test: ABG PARTIAL PRESSURE O2; Value: 61.1; Range: 75.0-100.0; Abnormal: Below low normal; Units: mmHg; Status: F Test: ABG TOTAL CO2; Value: 24.8; Range: 23.0-31.0; Units: MEQ/L; Status: F Test: ABG HCO3; Value: 23.8; Range: 22.0-26.0; Units: MEQ/L; Status: F Test: ABG BASE EXCESS; Value: 1.6; Range: -2.0-2.0; Status: F Test: ABG STANDARD HCO3; Value: 25.8; Range: 22.0-26.0; Units: MEQ/L; Status: F Test: ABG O2 SATURATION; Value: 92.2; Range: 95.0-99.0; Abnormal: Below low normal; Units: %; Status: F Test: ABG DEVICE; Value: NASAL LORA; Status: F Lab Order: PT/INR; SPEC'09/18/16 11:30 Test: PROTHROMBIN TIME; Value: 14.6; Range: 12.3-14.5; Abnormal: Above high normal; Units: SECONDS; Status: F Test: INR; Value: 1.13; Status: F Test Note: ; THERAPUTIC HUMAN INR VALUES INDICATIONS NORMAL RANGES PROPHYLAXIS/TREATMENT OF: VENOUS THROMBOSIS 2.0-3.0 PULMONARY EMBOLISM 2.0-3.0 PREVENTION OF SYSTEMIC EMBOLISM FROM: TISSUE HEART VALVES 2.0-3.0 ACUTE MYOCARDIAL INFARCTION 2.0-3.0 VALVULAR HEART DISEASE 2.0-3.0 ATRIAL FIBRILLATION 2.0-3.0 MECHANICAL VALVES(HIGH RISK) 2.5-3.5 RECURRENT MYOCARDIAL INFARCTION 2.5-3.5 Lab Order: PTT; SPEC' 09/18/16 11:30 Test: PARTIAL THROMBOPLASTIN TIME; Value: 27.6; Range: 26.6-37.1; Units: SECONDS; Status: F Lab Order: Urinalysis; SPEC' 09/18/16 11:08 Test: APPEARANCE, URINE; Value: CLEAR; Range: CLEAR; Status: F Test: COLOR, URINE; Value: YELLOW; Range: YELLOW; Status: F Test: PH,URINE; Value: 7.0; Range: 5.0-9.0; Units: UNITS; Status: F Test: SPECIFIC GRAVITY URINE AUTO; Value: 1.012; Range: 1.002-1.035; Status: F Test: PROTEIN, URINE AUTO; Value: NEGATIVE; Range: NEGATIVE; Units: mg/dL; Status: F Test: GLUCOSE, URINE (UA) AUTO; Value: NEGATIVE; Range: NEGATIVE; Units: mg/dL; Status: F Test: KETONE, URINE AUTO; Value: NEGATIVE; Range: NEGATIVE; Units: mg/dL; Status: F Test: UROBILINOGEN, URINE AUTO; Value: 0.2; Range: 0.0-2.0; Units: mg/dL; Status: F Test: BILIRUBIN, URINE AUTO; Value: NEGATIVE; Range: NEGATIVE; Status: F Test: NITRITE, URINE AUTO; Value: NEGATIVE; Range: NEGATIVE; Status: F Test: LEUKOCYTE ESTERASE, URINE AUTO; Value: NEGATIVE; Range: NEGATIVE; Status: F Test: BLOOD, URINE BLOOD; Value: NEGATIVE; Range: NEGATIVE; Status: F Test: WBC, URINE AUTO; Value: 2; Range: 0-3; Units: /HPF; Status: F Test: RBC, URINE AUTO; Value: 2; Range: 0-3; Units: /HPF; Status: F Test: BACTERIA, URINE AUTO; Value: NEGATIVE; Range: NEGATIVE; Status: F Test: SQUAMOUS EPITHELIAL CELL UR AU; Value: 0; Range: 0-6; Units: /HPF; Status: F Test: MUCUS, URINE; Value: SMALL; Range: NEGATIVE; Status: F Test: HYALINE CAST, URINE AUTO; Value: 0; Range: 0-1; Units: /LPF; Status: F Lab Order: LIVER PROFILE; SPEC'M 09/18/16 11:30 Test: AST/SGOT; Value: 24; Range: 15-37; Units: U/L; Status: F Test: ALT/SGPT; Value: 27; Range: 12-78; Units: U/L; Status: F Test: ALKALINE PHOSPHATASE; Value: 38; Range: 45-117; Abnormal: Below low normal; Units: U/L; Status: F Test: BILIRUBIN,TOTAL; Value: 1.5; Range: 0.2-1.0; Abnormal: Above high normal; Units: MG/DL; Status: F Test: BILIRUBIN,DIRECT; Value: 0.4; Range: 0.0-0.2; Abnormal: Above high normal; Units: MG/DL; Status: F Test: TOTAL PROTEIN; Value: 6.5; Range: 6.4-8.2; Units: GM/DL; Status: F Test: ALBUMIN; Value: 3.1; Range: 3.2-5.2; Abnormal: Below low normal; Units: GM/DL; Status: F Test: ALBUMIN/GLOBULIN RATIO; Value: 0.91; Range: 1.00-1.93; Abnormal: Below low normal; Status: F Lab Order: PLATELET ESTIMATE; SPEC'M 09/18/16 11:30 Test: PLATELET ESTIMATE; Value: NORMAL; Range: NORMAL; Status: F Test Note: ; A FEW GIANT PLAT NOTED ON SLIDE. 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; : 1930 Requested By: LIZBET Mendez; Order Number: [id number] Reading MD: sAhley Rico; Measurements; Intervals [place]; Rate: 116 P: 63; OK: 80 QRS: 19; QRSD: 90 T: 67; QT: 305; QTc: 424; Interpretive Statements; SINUS TACHYCARDIA WITH SHORT OK INTERVAL; ABNORMAL RHYTHM ECG; NSTTW ABNORMALITY; INCREASED RATE 12/07/11; Electronically Signed On 09-18-2016 13:15:46 EST by Ashley Rico; Radiology Order: Chest, 1 View Test: Chest, 1 View REASON FOR EXAMINATION: Shortness of Breath; AP portable semi upright chest radiograph 09/18/2016; ; Indication: Shortness of breath; ; Comparison: PA and lateral chest 07/03/12, CT of the abdomen and pelvis; 10/07/2014, CT chest 07/08/2013; ; There is a right IJ venous Port-A-Cath with tip in the expected location of; superior vena cava. There is underlying hyperinflation consistent with COPD.; Areas of alveolar infiltrate are seen within the medial segment of the right; middle lobe and in the left lower lobe distribution. There are no pleural; effusions.; ; Impression:; ; Right IJ venous Port-A-Cath with tip in the expected location of the SVC.; Infiltrates identified in the medial segment right middle lobe and in the left; lower lobe. Follow-up to resolution recommended.; ; COPD; ; ; Signed by; Aaliyah Alcantara MD 09/18/2016 11:36 A; Outcome: 12:20 Decision to Hospitalize by Provider. br1 17:08 Discharge Assessment: patient administered narcotics - no. Admitted to ICU. critical. ja5 CT Study completed. Property :Personal belongings accompany Pt. 17:09 The following High Risk Discharge criteria are identified: None. Admitted to ICU ja5 accompanied by nurse, via stretcher, with oxygen, on monitor, with chart. Admission hand-off: Report called to JULIET Magdaleno. 17:14 Patient left the ED. ja5 Signatures: Dispatcher [employer] EDEmiliano Lozano, RN RN bcj Talib,Lizbet Steele MD MD br1 Ninoska Arellano, SUPERIOR COURT JUSTICE SUPERIOR COURT JUSTICE ar3 Radha Milian,RN RN ld5 Sandra Nash, RN RN jc4 Jocelyne, Autumn, SUPERIOR COURT JUSTICE SUPERIOR COURT JUSTICE ct3 Hiram Mosqueda, Reg Reg mpb Jacquelin Hernandez nb2 Allison Baldwin,RN RN ja5 MTDD
--- NOTE | 2016-09-18 17:16 | EDDOCDS ---
Physician Documentation [facility] Name: Cheli Keys Age: 86 yrs Sex: Female : 1930 Arrival Date: 09/18/2016 Time: 09:58 Bed 3 Private MD: Jesus Shea Disposition: 09/18/16 12:20 Hospitalization ordered by Chrissy Colón for Inpatient Admission. Preliminary diagnosis are Pneumonia, unspecified organism, Hypotension. - Bed requested for M ICU. - Status is Inpatient Admission. ja5 - Condition is Stable. - Problem is new. - Symptoms are unchanged. Historical: - Allergies: PENICILLINS (Rash); SULFA (SULFONAMIDES) (Jaundice); - Home Meds: 1. prednisone 10 mg oral tab 1 tab once daily (Last dose: 09/17/2016) - PMHx: Left Kidney Cancer; Hypertension; - PSHx: Appendectomy; Hysterectomy; Release of abd adhesions; - Social history: Smoking status: Patient states was never smoker of tobacco. No barriers to communication noted, The patient speaks fluent Amharic. - Family history: Not pertinent. - : The pt / caregiver states he / she is not on anticoagulants. Home medication list is obtained from the patient. - Exposure Risk Screening:: None identified. Vital Signs: 09/18 10:17 BP 100 / 54; Pulse 122; Resp 18; Temp 101.9(TE); Pulse Ox 83% on 5 lpm NC; nb2 10:35 Weight 71.21 kg / 156.99 lbs (M); Height 5 ft. 4 in. (162.56 cm) (R); ja5 10:39 BP 90 / 51 (auto/); jc4 10:40 Pulse 110 MON; Pulse Ox 95% ; jc4 10:45 BP 97 / 47 (auto/); jc4 10:46 Pulse 114 MON; Pulse Ox 92% ; jc4 10:51 BP 110 / 56 (auto/); jc4 10:53 Pulse 112 MON; Pulse Ox 92% ; jc4 11:06 BP 124 / 62 (auto/); jc4 11:10 Pulse 122 MON; Pulse Ox 94% ; jc4 11:36 BP 112 / 56 (auto/); jc4 11:37 Pulse 114 MON; Pulse Ox 97% ; jc4 11:51 BP 76 / 44 (auto/); jc4 11:52 Pulse 104 MON; Pulse Ox 97% ; jc4 12:05 Pulse 110 MON; Pulse Ox 98% ; ja5 12:06 BP 75 / 40 (auto/); jc4 12:06 Pulse 106 MON; Pulse Ox 99% ; jc4 12:06 BP 77 / 42 (auto/); ja5 12:07 BP 79 / 44 (auto/); jc4 12:08 Pulse 107 MON; Pulse Ox 99% ; jc4 12:10 BP 76 / 41 (auto/); jc4 12:11 Pulse 103 MON; Pulse Ox 97% ; jc4 12:16 BP 76 / 41; Pulse 99; Resp 20; Pulse Ox 98% on Mask: Non-rebreather mask; jc4 12:21 BP 82 / 47 (auto/); jc4 12:22 Pulse 100 MON; Pulse Ox 99% ; jc4 12:36 BP 80 / 44 (auto/); jc4 12:37 Pulse 96 MON; Pulse Ox 99% ; jc4 12:51 BP 78 / 41 (auto/); jc4 12:52 Pulse 100 MON; Pulse Ox 99% ; jc4 13:06 BP 84 / 45 (auto/); jc4 13:07 Pulse 94 MON; Pulse Ox 98% ; jc4 13:21 BP 83 / 44 (auto/); jc4 13:21 Pulse 93 MON; Pulse Ox 98% ; jc4 13:36 BP 78 / 39 (auto/); ld5 13:37 Pulse 90 MON; Pulse Ox 100% on Non-rebreather mask; ld5 13:49 Temp 98.5(O); ld5 13:51 BP 82 / 49 (auto/); ld5 13:51 Pulse 91 MON; Pulse Ox 99% on Non-rebreather mask; ld5 14:06 BP 82 / 53 (auto/); jc4 14:07 Pulse 89 MON; Pulse Ox 98% ; jc4 14:21 BP 97 / 50 (auto/); jc4 14:22 Pulse 86 MON; Pulse Ox 97% ; jc4 14:36 BP 87 / 51 (auto/); jc4 14:36 Pulse 88 MON; Pulse Ox 97% ; jc4 14:51 BP 91 / 50 (auto/); ja5 14:51 Pulse 88 MON; Pulse Ox 98% ; ja5 14:55 BP 91 / 50; Pulse 86; Resp 16; Pulse Ox 98% on Non-rebreather mask; jc4 15:06 BP 84 / 48 (auto/); ja5 15:06 Pulse 87 MON; Pulse Ox 98% ; ja5 15:21 BP 89 / 50 (auto/); ja5 15:21 Pulse 84 MON; Pulse Ox 98% ; ja5 15:36 BP 112 / 56 (auto/); ja5 15:36 Pulse 89 MON; Pulse Ox 98% ; ja5 15:51 BP 112 / 56 (auto/); ja5 15:51 Pulse 87 MON; Pulse Ox 98% ; ja5 16:06 BP 114 / 57 (auto/); ja5 16:06 Pulse 84 MON; Pulse Ox 98% ; ja5 16:21 BP 98 / 51 (auto/); ja5 16:21 Pulse 87 MON; Pulse Ox 89% ; ja5 16:36 BP 99 / 56 (auto/); ja5 16:37 Pulse 84 MON; Pulse Ox 94% ; ja5 17:01 BP 102 / 57; Pulse 88; Resp 14 S; Temp 97.5(TE); Pulse Ox 94% on 50% Venturi mask; Pain ja5 0/10; 10:35 Body Mass Index 26.95 (71.21 kg, 162.56 cm) ja5 MDM: 10:13 Precision Lens Grinder/Pulse Ox/q 30 min VS ordered. br1 10:13 IV Saline Lock ordered. br1 10:13 Rhythm Strip to chart ordered. br1 10:13 Undress patient appropriately for examination ordered. br1 10:13 Basic Metabolic Profile Ordered. EDMS 10:13 CBC with Diff Ordered. EDMS 10:13 Cardiac Injury Profile Ordered. EDMS 10:13 Troponin Ordered. EDMS 10:13 ECG WITH READING ER PHYS+CARDIAG ordered. EDMS 10:29 Oxygen at 15 Liters/Minute NRB Mask ordered. br1 10:29 -Blood Culture (Adults Only), peripheral from different site, or from device/port/PICC br1 etc. if present ordered. 10:29 Chest, 1 View Ordered. EDMS 10:29 BNP Ordered. EDMS 10:30 Acetaminophen Tablet 650 mg PO once ordered. br1 10:30 Call Respiratory ordered. br1 10:31 Lactic Acid (Baird tube on ice) Ordered. EDMS 10:31 -Arterial Blood Gas Ordered. EDMS 10:31 -Blood Culture Ordered. EDMS 10:31 Large bore IV x 2 ordered. br1 10:32 PT/INR Ordered. EDMS 10:32 PTT Ordered. EDMS 10:32 Urinalysis Ordered. EDMS 10:32 Urine Culture Ordered. EDMS 10:33 Call Respiratory complete. ar3 10:34 -Blood Culture (Adults Only), peripheral from different site, or from device/port/PICC ar3 etc. if present complete. 10:35 BLOOD CULTURES Ordered. EDMS 10:37 Cefepime 2 grams IVPB at 100 mL/hr once over 30 mins; dilute in 50mL of NS or D5W br1 ordered. 10:37 NS 0.9% (Sepsis- hypotension or lactate >4mmol/L, 30ml/kg) 30 ml/kg IV at bolus once; br1 Give in 500mL aliquots, assess for rales after each, inform provider ordered. 10:41 Financial registration complete. mpb 10:41 [facility] Payment Agreement was scanned into [employer] and attached to record. mpb 10:44 Chicas ordered. br1 11:08 BED REQUEST+ADM ordered. EDMS 11:22 LIVER PROFILE Ordered. EDMS 11:43 DIFFERENTIAL NO CHARGE Ordered. EDMS 11:43 PLATELET ESTIMATE Ordered. EDMS 12:03 Basic Metabolic Profile Reviewed. br1 12:03 CBC with Diff Reviewed. br1 12:03 BNP Reviewed. br1 12:03 Lactic Acid (Baird tube on ice) Reviewed. br1 12:03 -Arterial Blood Gas Reviewed. br1 12:03 PT/INR Reviewed. br1 12:03 LIVER PROFILE Reviewed. br1 12:03 Cardiac Injury Profile Reviewed. br1 12:03 Troponin Reviewed. br1 12:03 PTT Reviewed. br1 12:03 Urinalysis Reviewed. br1 12:03 PLATELET ESTIMATE Reviewed. br1 12:03 Chest, 1 View Reviewed. br1 13:08 Admission / Observation Status ordered. EDMS 13:09 NPO DIET ordered. EDMS 13:09 LACTIC ACID LEVEL, LACTATE Ordered. EDMS 13:19 CT Chest without contrast Ordered. EDMS 14:33 NS 0.9% 1000 ml IV at 100 mL/hr continuous ordered. jc4 14:35 MRSA SCREEN Ordered. EDMS 15:05 TROPONIN Ordered. EDMS Administered Medications: 10:56 Drug: NS 0.9% (Sepsis- hypotension or lactate >4mmol/L, 30ml/kg) 500 ml Route: IV; ja5 Rate: bolus; Site: left forearm; 12:16 Follow up: BP 76 / 41; Pulse 99 bpm; Resp 20 bpm; Pulse Ox 98% Mask: Non-rebreather jc4 mask; IV Intake: 500ml 14:16 Follow up: IV Intake: 500ml jc4 11:15 Drug: Acetaminophen 650 mg [acetaminophen 325 mg tablet (2 tabs)] Route: PO; ja5 13:49 Follow up: Temp 98.5 Oral; Response: Temperature is decreased ld5 12:44 Drug: Cefepime 2 grams [cefepime 2 gram solution for injection] Route: IVPB; Rate: 100 ja5 mL/hr; Infused Over: 30 mins; Site: left femoral; 14:33 Drug: NS 0.9% 1000 ml [sodium chloride 0.9 % intravenous solution] Route: IV; Rate: 100 jc4 mL/hr; Site: left antecubital; 17:05 Follow up: IV Status: Infusion continued upon admit; IV Intake: 200ml ja5 Signatures: Dispatcher [employer] EDMS Reymundo Bishop MD MD br1 Ninoska Arellano, PREVOCATIONAL/REHABILITATION COUNSELOR PREVOCATIONAL/REHABILITATION COUNSELOR ar3 Sandra Nash RN RN jc4 Nina CrawleyRN RN [facility] Hiram Mosqueda, Reg Reg mpb Allison Baldwin,JULIET RN ja5 Radha Milian RN ld5 The chart was reviewed and I authenticate all verbal orders and agree with the evaluation and treatment provided.Corrections: (The following items were deleted from the chart) 10:43 10:41 Straight cath ordered. br1 br1 11:22 10:32 LIVER PROFILE+LAB ordered. EDMS EDMS Attachments: 10:41 [facility] Payment Agreement mpb MTDD
[2016-09-18] MEDS: MEROPENEM INJ 1 GM in D5W MINI-BAG PLUS 100 ML IV SCH (17:56)
--- NOTE | 2016-09-18 17:56 | PHACANCOPD ---
PHARMACY VANCOMYCIN DOSING Pt Demographics Demographics Patient Age:86 , Weight:55.200 , Gender: female Adjusted Body Weight Date: 09/18/16, Adjusted Body Weight: Kg Events Past 24 Hours Events Past 24 Hours: YES: Fever, NO: Change in CrCl, Dialysis, Diuretic Therapy, Elevation in WBC, Other, Pending Diagnostics, Pending Procedures Vancomycin Vancomycin indication: pneumonia Vancomycin Target Ranges: 15-20 mcg/ml Vancomycin Load Y/N: No Load Dose Date Time Vancomycin Load Dose: Date: Time: Vancomycin Dose Date: 09/18/16. Current Vancomycin Dose: [1g IV q24h @20] Intermittent Dosing?: No Labs Labs Item Value Date Time White Blood Count 4.3 K/mm3 09/18/16 1130 Creatinine 1.32 MG/DL H 09/18/16 1130 Micro Microbiology 09/18/16 Blood Culture, Received Pending 09/18/16 Blood Culture, Received Pending 09/18/16 MRSA Screen, Received Pending 09/18/16 Urine Culture, Received Pending Creatinine Clearance Date:09/18/16. Creatinine Clearance: [28 ml/min]. Assessment and Plan Maintaining Current Dose?: Yes Reason for dose change: No Dose Change Pharmacist Note Pharmacist Note Date: 09/18/16. Pharmacist note: pt has been started on levaquin, meropenem and vancomycin for pneumonia, possible PCP. Pt is currently being seen at [facility]. Her SCr is currently elevated, baseline SCr appears to be ~1. I have started her on vancomycin 1g q24h. She has not had any vancomycin levels at our facility in the past. Cultures are pending, we will continue to monitor and order a trough as needed. Abram Joseph Pharm.D. Sep 18, 2016 17:56
[2016-09-18] MEDS ORDERED: SODIUM CHLORIDE HYPERTONIC 3% 15ML NEB SOL NEB ONE (18:00)
[2016-09-18] MEDS: predniSONE 20 MG TAB PO SCH (18:08)
--- NOTE | 2016-09-18 18:39 | HPE ---
DATE OF ADMISSION: 09/18/2016 PRIMARY CARE PROVIDER: Dr. Jesus Shea ONCOLOGIST: [facility] HISTORY OF PRESENT ILLNESS: The patient is an 86-year-old female presented to the emergency room with her complaining of a syncopal episode earlier today, unwitnessed. Patient has been coughing for the last 3-4 days. No fevers, nonproductive cough, no shortness of breath or chest pain. Over the last 12 hours she has gotten progressively worse. She had a syncopal episode in the bathroom earlier today that was unwitnessed. Her found her on the floor. He does not think she hit her head but she did have a laceration on her arm. He stated that the patient recently completed a year of chemotherapy for her metastatic left kidney cancer. Last July she had the last dose then she developed a reaction which was large blebs and rashes on her arms and legs, so she was treated with antibiotics and prednisone. Her oncologist was also treating with PCP prophylaxis due to her immune deficiency. In the emergency room the patient was found to be hypotensive and tachycardiac with a temperature of 101.9. She was also hypoxic, saturating at 93% on room air. Hospitalist was called for the admission for sepsis likely secondary to pneumonia. REVIEW OF SYSTEMS: 12-point review of systems was obtained all of which was negative except for those mentioned above. PAST MEDICAL HISTORY: Significant for left kidney cancer. PAST SURGICAL HISTORY: Appendectomy, hysterectomy, release of abdominal adhesions, and chemotherapy port. ALLERGIES: To: PENICILLIN, reaction rash; SULFA, reaction jaundice. HOME MEDICATIONS: Include: - prednisone taper that she is finishing - she was also getting atovaquone per her oncologist SOCIAL HISTORY: No tobacco or alcohol use. Lives at home with her . FAMILY HISTORY: Noncontributory. PHYSICAL EXAMINATION: VITAL SIGNS: 100/54, pulse 122, respiratory rate 18, temperature 101.9, pulse oximetry 93% on 5 liters. She is currently saturating at 99% on 100% non-rebreather. HEENT: Pupils equal, round, reactive. NECK: Supple. LUNGS: Some fine crackles at the lung bases. CARDIAC: Tachycardiac. No murmurs appreciated. ABDOMEN: Soft, nontender, nondistended. EXTREMITIES: The patient has what appears to be a laceration on her left leg and a laceration on her right arm that is dressed and appears clean, dry, intact. NEUROLOGIC: Unable to do a neurologic exam at this time. LABORATORY FINDINGS: WBC 4.3, hemoglobin 13.3, platelet count 169, neutrophils 57, bands 7, lymphocytes 13, PT 14.6. Urinalysis was negative. pH 7.5, pCO2 30.5, pO2 61.1, bicarbonate 23.8. Sodium 134, potassium 3.5, chloride 95, BUN 30, creatinine 1.32, lactic acid initially was 3, repeat is 1.4, troponin 0.07, BNP 2.12. Blood and urine cultures are pending. Chest x-ray was done in the emergency room which showed infiltrate in the medial segment of the right middle lobe and left lower lobe. ASSESSMENT/PLAN: 1. Sepsis likely secondary to pneumonia. Given the patient's decreased immune response at this time secondary to chemotherapy, we will start the patient on vancomycin, Merrem, and Levaquin. She completed a course of atovaquone. We will continue the patient's prednisone. We will order a PCP induction. Will consult Dr. Leonardo from infectious disease to see the patient in the morning. Continue oxygen to keep saturations above 90%. Will repeat blood work in the morning. 2. Lactic acidosis, resolved. 3. Hypotension secondary to sepsis. The patient received 1500 mL normal saline in the emergency room. Will continue fluids at a rate of 100 mL an hour. 4. Acute kidney injury, unknown baseline creatinine at this time, but likely secondary to prerenal. 5. 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 She follows up with oncology in [facility]. 6. Deep venous thrombosis (DVT) prophylaxis. Thromboembolism deterrents (TEDs) and sequentials.
[2016-09-18] MEDS: VANCOMYCIN HCL 1,000 MG, VIAL MATE ADAPTER 1 EACH in D5W 250 ML IV SCH (19:42)
[2016-09-18] MEDS: NS 1,000 ML IV SCH (19:43)
[2016-09-18] MEDS ORDERED: ALBUTEROL SULFATE 2.5 MG/0.5 ML INH NEB SOLN NEB ONE (19:45)
[2016-09-18] MEDS ORDERED: LevoFLOXacin 750 MG in APPROPRIATE DILUENT 1 EA IV SCH (21:00)
--- NOTE | 2016-09-18 23:30 | REPUSA ---
CLINICAL HISTORY: Fall. TECHNIQUE: Multiple axial CT images were obtained through the brain without IV contrast material. COMMENTS: S tatus post left occipital craniotomy. Extensive surgical changes are present in the region of left s kull base. There is normal configuration of sella turcica. There are no intra or extra-axial collections. There is no mass effect or midline shift. There is no evidence of hematoma formation. No hydrocephalus is p resent. The ventricles are symmetrical. No abnormal calcifications are present. There is diffuse age-appropriate cerebellar and cerebral atrophy with proportionally dilated ventricl es and cortical sulci. There are bilateral periventricular and subcortical white matter hypolucencies compatible with mild c hronic microvascular disease. Otherwise, no significant focal abnormalities are seen either in the posterior fossa or supratentoria l compartment. IMPRESSION: 1. Age-appropriate cerebellar and cerebral atrophy. 2. Mild chronic microvascular disease. 3. No evidence of acute intracranial pathology. 4. Postsurgical changes. Thank you for your kind referral of this patient.
[2016-09-19] VITALS (11 sets, daily range): BP systolic 109–171; BP diastolic 60–87
[2016-09-19 04:50] LABS: DIFF SLIDE NUMBER 96; MEAN CORPUSCULAR HEMOGLOBIN 31.6 pg (27.0-33.0); MEAN CORPUSCULAR HGB CONC 34.5 g/dl (32.0-36.5); MEAN CORPUSCULAR VOLUME 91.8 fl (80.0-96.0); PLATELET COUNT, AUTOMATED 130 k/mm3 (150-450); RED CELL DISTRIBUTION WIDTH 13.9 % (11.5-14.5); WHITE BLOOD COUNT 5.1 K/mm3 (4.0-10.0)
[2016-09-19 05:01] LABS: ALBUMIN 2.2 GM/DL (3.2-5.2); ALBUMIN/GLOBULIN RATIO 0.67 (1.00-1.93); ALKALINE PHOSPHATASE 32 U/L (45-117); ALT/SGPT 23 U/L (12-78); ANION GAP 10 MEQ/L (8-16); AST/SGOT 31 U/L (15-37); BILIRUBIN,TOTAL 1.2 MG/DL (0.2-1.0); BLOOD UREA NITROGEN 21 MG/DL (7-18); CALCIUM LEVEL 7.2 MG/DL (8.8-10.2); CARBON DIOXIDE LEVEL 24 MEQ/L (21-32); CHLORIDE LEVEL 103 MEQ/L (98-107); CREATININE FOR GFR 0.84 MG/DL (0.55-1.02); GLOMERULAR FILTRATION RATE > 60.0 (>32); GLUCOSE, FASTING 77 MG/DL (83-110); MAGNESIUM LEVEL 1.5 MG/DL (1.8-2.4); POTASSIUM SERUM 3.8 MEQ/L (3.5-5.1); SODIUM LEVEL 137 MEQ/L (136-145); TOTAL PROTEIN 5.5 GM/DL (6.4-8.2)
[2016-09-19 05:54] LABS: BANDS 13 % (< 11)
[2016-09-19] MEDS: NS 1,000 ML IV SCH ×2 (05:58→09:30)
[2016-09-19] MEDS: MEROPENEM INJ 1 GM in D5W MINI-BAG PLUS 100 ML IV SCH ×2 (05:58→18:00)
[2016-09-19] MEDS ORDERED: MALARONE 250/100MG (ATOVAQUONE/PROGUANIL) TABLET PO SCH (09:00)
[2016-09-19] MEDS: predniSONE 20 MG TAB PO SCH (09:51)
--- NOTE | 2016-09-19 16:20 | IPN ---
DATE: 09/19/2016 SUBJECTIVE: Patient is seen and examined in the room today. During the encounter in the morning, the patient's two liter nasal cannula oxygen saturation maintained above 93%. Patient stated her breathing is improving. Patient is alert and awake, able to answer questions. Per medical record, patient was on the VentiMask running at 35% FiO2 and the VentiMask was switched to nasal cannula around 12:00 midnight to 2:00 p.m. OBJECTIVE: VITAL SIGNS: Temperature is 98.2, pulse is 100, respiratory rate 14, blood pressure is 131/62, pulse oximetry is 94% with two liters nasal cannula. GENERAL: No sign of acute distress, alert and oriented times three. HEENT: Normocephalic, atraumatic. Extraocular motor grossly intact. RESPIRATORY: Positive crackles at the lung base. CARDIOVASCULAR: Intermittent tachycardia. At the time of encounter, the patient's heart rate is wandering between 80 to 100s. No murmurs. Positive S1, S2. ABDOMEN: Soft, nontender, nondistended. EXTREMITIES: Mild laceration on the extremity with dressing in place. LABORATORY DATA: WBC 5.1, hemoglobin 10.9, hematocrit 31.7, platelet count is 130. Sodium is 137, potassium 3.8, chloride is 103, carbon dioxide 24, BUN is 21, creatinine 0.84, GFR greater than 60, fasting glucose is 77, calcium is 7.2, magnesium is 1.5, total bilirubin is 1.2, AST 31, ALT is 23, alkaline phosphatase is 32, troponin I is 0.03, total protein 5.5, albumin 2.2. ASSESSMENT AND PLAN: 1. Sepsis, secondary to pneumonia. Patient is immunocompromised from the chemotherapy. She has a history of renal cancer. She has received at least two courses of cancer treatments. Patient is also on steroids. Currently, patient is on vancomycin, meropenem, and Levaquin. We are waiting for the Pneumocystis carinii pneumonia (PCP) induction. Dr. Leonrado has been consulted. Patient's breathing shows improvement. Patient was weaned off the VentiMask to nasal cannula around midnight to 2:00 p.m. At the time of admission, patient had a temperature of 101.9. Currently, temperature is under control. Patient is on IV fluid. 2. Hypotension, secondary to sepsis. Patient had received 1.5 liters of fluid bolus. Patient has the fluid running at 100 mL per hour. Currently, mean arterial pressure (MAP) has been maintained above 65. 3. Acute kidney injury. Continue on IV fluid. 4. History of kidney cancer with metastasis to the multiple lymph nodes and the lung. Patient has been receiving cancer treatment from [facility]. Previously, the patient had been seen by Dr. Moreno in the past. 5. Deep vein thrombosis (DVT) prophylaxis. The patient has thromboembolic-deterrent stockings (TEDS) and sequential compression device. CODE STATUS: Patient is DO NOT RESUSCITATE (DNR)/DO NOT INTUBATE (DNI). Medical orders for life-sustaining treatment (MOLST) form is updated.
[2016-09-19] MEDS ORDERED: ATOVAQUONE SUSP 750MG/5ML 210 ML BTL PO SCH (18:00)
--- NOTE | 2016-09-19 18:23 | CR.PDOC ---
[facility] Consultation Consultation DATE OF SERVICE: 09/19/16 REASON FOR CONSULT: Sepsis HISTORY OF PRESENT ILLNESS: Patient is a 86-year-old female who presented to [facility] on 09/18 after having a syncopal episode at home. Patient's medical history significant for renal cancer. She was diagnosed in Fall of 2011. She was initially treated in [place] but then had care transitioned to [facility] in [place]. Patient was treated with Pembrolizumab immunotherapy from 12/10-07/13. In June 2016 she developed a rash, itching and blebs. The immunotherapy was discontinued and she was switched to high-dose prednisone. She was also started on atovaquone at that time for PCP prophylaxis. After taking a couple doses of atovaquone she developed a rash and was then transitioned to pentamadine. As for her presenting symptom she says that she collapsed early in the morning on 09/18. She mentions that she had an episode of incontinence of bowel and bladder prior to the fall. She also mentions that whenever she has a violent bowel movements that this causes her to become lightheaded. After having the syncopal episode, she does not recall how long she was on the floor for. After regaining consciousness she called to her and EMS was called and brought her in to [facility]. Patient also mentions a cough which she says started last , cough is described as nonproductive but today she has been bringing up some yellow sputum but denies any hemoptysis. She denies having any shortness of breath or difficulty breathing ALLERGIES: Penicillins, sulfa CURRENT MEDICATIONS: Tylenol 325 mg by mouth every 6 hours when necessary for headache Atovaquone 750 mg by mouth twice a day Levaquin 750 mg IV every 48 hours Meropenem 1 g IV every 12 hours Prednisone 20 mg by mouth daily Normal saline at rate of 100 mL/hr Vancomycin 1 g IV every 24 hours PAST MEDICAL HISTORY: Left renal cancer PAST SURGICAL HISTORY: Appendectomy, hysterectomy, release of abdominal adhesions, chemotherapy port insertion SOCIAL HISTORY: Patient lives at home with her , no alcohol or tobacco use REVIEW OF SYSTEMS: Constitutional: Fever of 101 on presentation to hospital, currently denies fevers, chills, night sweats, recent weight gain/loss. HEENT: Head: Only lightheadedness when she had the fall prior to presentation, currently denies headaches, dizziness, light-headedness. Eyes: denies blurry vision, double vision. Ears: denies hearing loss, tinnitus, ear pain. Nose: denies sinus pain, pressure, rhinorrhea, postnasal drip. Throat: denies sore throat, cough, difficulty swallowing Cardiovascular: denies chest discomfort/pain, palpitations Respiratory: denies shortness of breath, difficulty breathing Gastrointestinal: Episode of bowel incontinence prior to presentation, currently denies nausea, vomiting, diarrhea, constipation, abdominal pain, melena, hematochezia : Episode of incontinence prior to presentation, currently denies dysuria, hematuria Musculoskeletal: denies muscle / joint stiffness, pain, swelling Neurological: denies numbness, tingling, paresthesias Lymphatics: denies palpable lymph nodes or swollen glands Integumentary: Rash from medication in the end of June, left leg laceration from fall on 08/21 when she tripped while carrying something upstairs. She currently denies any cuts, abrasions, rashes PHYSICAL EXAMINATION: Vitals: Temperature 98.2, pulse 86, respiratory rate 14 blood pressure 140/73, pulse ox 95% on 1 L nasal cannula General: Patient awake in bed, alert and oriented, verbal and able to answer questions appropriately. She does not appear to be in any acute distress HEENT: Head: normocephalic, atraumatic. Eyes: pupils equally reactive to light , conjunctiva are pink, sclera are nonicteric. Throat: buccal mucosa is pink and moist with no lesions in the oropharynx Respiratory: Bilateral expiratory rhonchi with bilateral inspiratory crackles Cardiovascular: regular rate and rhythm, with no murmurs, rubs or gallops. Abdomen: soft, nontender, nondistended, no hepatosplenomegaly appreciated. Bowel sounds present. Extremities: 5/5 strength in upper and lower extremities bilaterally, no swelling in either lower extremity bilaterally Neurological: sensation intact and symmetrical in upper and lower extremities bilaterally Lymphatics: no palpable lymph nodes, swollen glands Integumentary: skin free from rashes, lesions, abrasions Vascular: pulses palpable and symmetrical in upper and lower extremities bilaterally LABORATORY DATA: CBC: White blood cells 5.1, H&H 10.9 / 31.7, platelets 130 Chemistry: Sodium 137, potassium 3.8, chloride 103, Carbon dioxide 24, BUN 21, creatinine 0.84, glucose 77, calcium 7.2, magnesium 1.5 Liver profile: AST 31, ALT 23, alkaline phosphatase 32, total protein 5.5, albumin 2.2, total bilirubin 1.2 MICROBOIOLOGY: Blood cultures 2 no growth after 48 hours, urine culture pending, MRSA screen pending. Sputum culture: good-quality, many white blood cells, few epithelial cells, many gram-positive cocci in pairs and chains, few gram-positive rods, few gram-negative rods RADIOLOGY: Chest x-ray from 09/18 showed infiltrates in the medial segment of right middle lobe and the left lower lobe Chest CT from 09/18 showed bilateral infiltrates, no pleural effusion Head CT from 09/18 showed age-appropriate atrophy, chronic microvascular disease , no acute intracranial pathology ASSESSMENT: Patient is a 86-year-old female with bilateral pneumonia, currently on IV antibiotics PLAN: #1: Bilateral pneumonia: At this time it is not entirely clear as to what the causative organism of the patient's pneumonia but she is at risk for HCAP, legionnaire Patient will continue on her current IV antibiotics. Sputum culture pending, taper antibiotics pending results from sputum culture. Orders for urine legionella antigen and urine strep pneumonia antigen have been placed. Patient's presentation and imaging are not consistent with the PCP pneumonia, atovaquone has been discontinued. Order to discontinue Chicas has been placed. We will continue to monitor patient. 2. 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 Will discuss with Dr Meredith Mcdermott from [facility] her care. She is due for pentamidine nebulized TX My preceptor for this patient encounter was physically present in the building during the encounter and was fully available. As needed, all aspects of the patient interview, examination, medical decision making process, and medical care plan development were reviewed and approved by the preceptor. Preceptor is aware and concurs with the plan as stated in the body of this note and will attest to such by his/her cosignature. Allergies Coded Allergies: Penicillins (Verified Allergy, Unknown, 11/26/12) Penicillins Cross Reactors (Verified Allergy, Unknown, 11/26/12) Sulfa Drugs (Verified Allergy, Unknown, 11/26/12) Sulfa Drugs Cross Reactors (Verified Allergy, Unknown, 11/26/12) Home Medications Scheduled Prednisone (Prednisone) 10 Mg Tab 10 MG PO DAILY (Reported) SEE COMMENTS Scheduled PRN Acetaminophen (Acetaminophen) 500 Mg Tab 500 MG PO PRN PAIN (Reported) Diphenhydramine HCl (Benadryl Allergy) 25 Mg Cap 25 MG PO QHS PRN PRN SLEEP ( Reported) VERONICA JONES DO Sep 19, 2016 18:23 Michelle Leonardo MD Sep 20, 2016 22:05
[2016-09-19] MEDS: VANCOMYCIN HCL 1,000 MG, VIAL MATE ADAPTER 1 EACH in D5W 250 ML IV SCH (20:32)
[2016-09-20 01:30] VITALS: BP 145/80
[2016-09-20] MEDS: MEROPENEM INJ 1 GM in D5W MINI-BAG PLUS 100 ML IV SCH (05:33)
[2016-09-20] MEDS: NS 1,000 ML IV SCH ×3 (05:33→16:59)
[2016-09-20 06:00] VITALS: BP 144/68
[2016-09-20 06:54] LABS: BASO % 0.2 % (0.0-1.0); EOS % 0.2 % (0.0-3.0); LARGE UNSTAINED CELL # 0.1 K/mm3 (0.0-0.4); LARGE UNSTAINED CELL % 0.9 % (0.0-4.0); LYMPH # 0.4 K/mm3 (1.5-4.5); LYMPH % 7.5 % (24.0-44.0); MEAN CORPUSCULAR HEMOGLOBIN 31.8 pg (27.0-33.0); MEAN CORPUSCULAR HGB CONC 35.1 g/dl (32.0-36.5); MEAN CORPUSCULAR VOLUME 90.5 fl (80.0-96.0); MONO # 0.1 K/mm3 (0.0-0.8); MONO % 1.6 % (0.0-5.0); NEUTROPHILS # 4.8 K/mm3 (1.8-7.7); NEUTROPHILS % 89.7 % (36.0-66.0); PLATELET COUNT, AUTOMATED 120 k/mm3 (150-450); RED CELL DISTRIBUTION WIDTH 13.9 % (11.5-14.5); WHITE BLOOD COUNT 5.3 K/mm3 (4.0-10.0)
[2016-09-20 07:15] LABS: ALBUMIN/GLOBULIN RATIO 0.59 (1.00-1.93); ALKALINE PHOSPHATASE 39 U/L (45-117); ALT/SGPT 22 U/L (12-78); ANION GAP 10 MEQ/L (8-16); AST/SGOT 25 U/L (15-37); BILIRUBIN,TOTAL 0.6 MG/DL (0.2-1.0); BLOOD UREA NITROGEN 17 MG/DL (7-18); CALCIUM LEVEL 7.4 MG/DL (8.8-10.2); CARBON DIOXIDE LEVEL 22 MEQ/L (21-32); CHLORIDE LEVEL 105 MEQ/L (98-107); CREATININE FOR GFR 0.65 MG/DL (0.55-1.02); GLOMERULAR FILTRATION RATE > 60.0 (>32); GLUCOSE, FASTING 124 MG/DL (83-110); MAGNESIUM LEVEL 1.7 MG/DL (1.8-2.4); POTASSIUM SERUM 3.1 MEQ/L (3.5-5.1); SODIUM LEVEL 137 MEQ/L (136-145); TOTAL PROTEIN 5.4 GM/DL (6.4-8.2)
[2016-09-20] MEDS ORDERED: POTASSIUM CHLORIDE 10 MEQ SR TABLET PO ONE (07:45)
[2016-09-20] MEDS ORDERED: MAG SULF 1GM/100ML (MAG RUN) 1 GM in APPROPRIATE DILUENT 1 EA IV ONE (08:00)
[2016-09-20] MEDS: predniSONE 20 MG TAB PO SCH (08:05)
--- NOTE | 2016-09-20 11:32 | IPN ---
DATE: 09/20/2015 The patient is seen and examined at bedside. Chart has been reviewed. The patient denies fevers, chills, shortness of breath, chest pain, pressure or tightness. Cough has been dry. No nausea or vomiting. The patient had a soft bowel movement this morning, but solid. Temperature 95.9, pulse 70, respiratory rate 18, blood pressure 144/68, 98% on 1 liter nasal cannula. GENERAL: The patient is awake, alert and oriented times three. Answering questions appropriately. LUNGS: Diminished breath sounds at the bases. HEART: S1, S2. Sinus rhythm. ABDOMEN: Soft, nontender, nondistended. Positive bowel sounds. EXTREMITIES: Lacerations on extremities, dressing in place. Otherwise, no pitting edema. CBC and metabolic panel have been reviewed and notable for potassium 3.1, magnesium 1.7, both of which have been supplemented. ASSESSMENT AND PLAN: This is an 86-year-old female with a history of left kidney cancer, appendectomy, hysterectomy with abdominal adhesions, chemotherapy port, has been complaining of syncopal episode, which was unwitnessed, cough for the past three to four days, and fever. The patient was found with fever of 101.9, admitted for bilateral pneumonia, sepsis on broad spectrum antibiotic due to immunocompromised state. IMPRESSION: 1. Sepsis secondary to bilateral pneumonia. Currently immunocompromised from recent chemotherapy, history of renal cell cancer. The patient has had two courses of chemotherapy, currently on intravenous steroids. For broad spectrum coverage, on vancomycin, meropenem, and Levaquin, which Dr. Leonardo agrees with. The patient is at risk for PCP. The patient has been without the Ventimask or nasal cannula and currently is stable. 2. Hypotension secondary to sepsis. Has received intravenous fluids. Mean arterial pressure goal to be about 60 to 65. 3. Acute kidney injury, resolved. 4. History of renal cell cancer with metastases to multiple lymph nodes and lung. Receiving chemotherapy at [facility]. 5. Deep vein thrombosis (DVT) prophylaxis. TEDs and sequential compression device (SCD). DO NOT RESUSCITATE and DO NOT INTUBATE. Medical Orders for Life Sustaining Treatment (MOLST) form has been signed. [facility]
[2016-09-20 14:00] VITALS: BP 163/77
[2016-09-20] MEDS ORDERED: NON-FORMULARY 1 EA EA NEB ONE (18:00)
--- NOTE | 2016-09-20 18:15 | IPN ---
DATE:09/20/2016 SUBJECTIVE: Mrs. Keys seems to be doing great. She denies any nausea, vomiting or diarrhea. She has a cough which is mostly dry, nonproductive. She has mild shortness of breath although her O2 saturation is 90% mostly with exertion. OBJECTIVE: HEART: Normal S1, S2. No murmurs. LUNGS: Diffuse crackles at both bases. ABDOMEN: Soft, nontender. EXTREMITIES: No edema. LABORATORY DATA White count 5.3, hemoglobin 9.6, hematocrit 27.4, platelets 120, 89% neutrophils , 7% monocytes. Sodium 137, potassium 3.1, chloride 105, bicarb 22, BUN 17, creatinine 0.65, glucose 124, calcium 7.4, magnesium 1.7, bilirubin 0.6, AST 25, ALT 22, alkaline phosphatase 39, total protein 5.4, albumin 2. MICROBIOLOGY: Sputum culture had many white cells. There was only normal davina. MRSA screen was negative. Blood cultures two sets were negative, and urine culture was negative. No growth. IMAGING: Chest CT did show bilateral infiltrates mediolateral segment of right middle lobe and bilateral lower lobes. IMPRESSION: Healthcare associated pneumonia, doing much better. The patient has been on intravenous (IV) vancomycin, meropenem and Levaquin. The patient's hypoxia has improved. She is off oxygen and saturating at 90%. PLAN: 1. Will discontinue meropenem and vancomycin. Switch her to Levaquin 500 mg by mouth daily. 2. Immunosuppression from high-dose steroids, currently on 20 mg. She is due for her second pentamidine dose which is supposed to be given every three weeks. I will give her that before she gets discharged home. 3. History of renal cancer metastatic to lymph nodes and lungs, receiving immunotherapy of [facility]. Case has been discussed with her urology/oncology , Dr. Meredith Mcdermott. She has been receiving every three weeks treatment with Keytruda, but had developed an allergic reaction with rash and had been on steroids for that. He has been informed about her progress and that she will schedule followup appointment in 1-2 weeks. 4. Please check on urine Legionella antigen as she could have legionnaire's disease and she is immunosuppressed. Would give her Levaquin 500 mg daily for 10-14 days. 5, Pentamidine 400 mg nebulized for prophylaxis for Pneumocystis carinii pneumonia (PCP) per request from with [facility]. [facility]
--- NOTE | 2016-09-20 18:16 | EDDOCDS ---
Physician Documentation [facility] Name: Cheli Keys Age: 86 yrs Sex: Female : 1930 Arrival Date: 09/18/2016 Time: 09:58 Bed 3 Private MD: Jesus Shea Disposition: 09/18/16 12:20 Hospitalization ordered by Chrissy Colón for Inpatient Admission. Preliminary diagnosis are Pneumonia, unspecified organism, Hypotension. - Bed requested for M ICU. - Status is Inpatient Admission. ja5 - Condition is Stable. - Problem is new. - Symptoms are unchanged. Historical: - Allergies: PENICILLINS (Rash); SULFA (SULFONAMIDES) (Jaundice); - Home Meds: 1. prednisone 10 mg oral tab 1 tab once daily (Last dose: 09/17/2016) - PMHx: Left Kidney Cancer; Hypertension; - PSHx: Appendectomy; Hysterectomy; Release of abd adhesions; - Social history: Smoking status: Patient states was never smoker of tobacco. No barriers to communication noted, The patient speaks fluent Yoruba. - Family history: Not pertinent. - : The pt / caregiver states he / she is not on anticoagulants. Home medication list is obtained from the patient. - Exposure Risk Screening:: None identified. Vital Signs: 09/18 10:17 BP 100 / 54; Pulse 122; Resp 18; Temp 101.9(TE); Pulse Ox 83% on 5 lpm NC; nb2 10:35 Weight 71.21 kg / 156.99 lbs (M); Height 5 ft. 4 in. (162.56 cm) (R); ja5 10:39 BP 90 / 51 (auto/); jc4 10:40 Pulse 110 MON; Pulse Ox 95% ; jc4 10:45 BP 97 / 47 (auto/); jc4 10:46 Pulse 114 MON; Pulse Ox 92% ; jc4 10:51 BP 110 / 56 (auto/); jc4 10:53 Pulse 112 MON; Pulse Ox 92% ; jc4 11:06 BP 124 / 62 (auto/); jc4 11:10 Pulse 122 MON; Pulse Ox 94% ; jc4 11:36 BP 112 / 56 (auto/); jc4 11:37 Pulse 114 MON; Pulse Ox 97% ; jc4 11:51 BP 76 / 44 (auto/); jc4 11:52 Pulse 104 MON; Pulse Ox 97% ; jc4 12:05 Pulse 110 MON; Pulse Ox 98% ; ja5 12:06 BP 75 / 40 (auto/); jc4 12:06 Pulse 106 MON; Pulse Ox 99% ; jc4 12:06 BP 77 / 42 (auto/); ja5 12:07 BP 79 / 44 (auto/); jc4 12:08 Pulse 107 MON; Pulse Ox 99% ; jc4 12:10 BP 76 / 41 (auto/); jc4 12:11 Pulse 103 MON; Pulse Ox 97% ; jc4 12:16 BP 76 / 41; Pulse 99; Resp 20; Pulse Ox 98% on Mask: Non-rebreather mask; jc4 12:21 BP 82 / 47 (auto/); jc4 12:22 Pulse 100 MON; Pulse Ox 99% ; jc4 12:36 BP 80 / 44 (auto/); jc4 12:37 Pulse 96 MON; Pulse Ox 99% ; jc4 12:51 BP 78 / 41 (auto/); jc4 12:52 Pulse 100 MON; Pulse Ox 99% ; jc4 13:06 BP 84 / 45 (auto/); jc4 13:07 Pulse 94 MON; Pulse Ox 98% ; jc4 13:21 BP 83 / 44 (auto/); jc4 13:21 Pulse 93 MON; Pulse Ox 98% ; jc4 13:36 BP 78 / 39 (auto/); ld5 13:37 Pulse 90 MON; Pulse Ox 100% on Non-rebreather mask; ld5 13:49 Temp 98.5(O); ld5 13:51 BP 82 / 49 (auto/); ld5 13:51 Pulse 91 MON; Pulse Ox 99% on Non-rebreather mask; ld5 14:06 BP 82 / 53 (auto/); jc4 14:07 Pulse 89 MON; Pulse Ox 98% ; jc4 14:21 BP 97 / 50 (auto/); jc4 14:22 Pulse 86 MON; Pulse Ox 97% ; jc4 14:36 BP 87 / 51 (auto/); jc4 14:36 Pulse 88 MON; Pulse Ox 97% ; jc4 14:51 BP 91 / 50 (auto/); ja5 14:51 Pulse 88 MON; Pulse Ox 98% ; ja5 14:55 BP 91 / 50; Pulse 86; Resp 16; Pulse Ox 98% on Non-rebreather mask; jc4 15:06 BP 84 / 48 (auto/); ja5 15:06 Pulse 87 MON; Pulse Ox 98% ; ja5 15:21 BP 89 / 50 (auto/); ja5 15:21 Pulse 84 MON; Pulse Ox 98% ; ja5 15:36 BP 112 / 56 (auto/); ja5 15:36 Pulse 89 MON; Pulse Ox 98% ; ja5 15:51 BP 112 / 56 (auto/); ja5 15:51 Pulse 87 MON; Pulse Ox 98% ; ja5 16:06 BP 114 / 57 (auto/); ja5 16:06 Pulse 84 MON; Pulse Ox 98% ; ja5 16:21 BP 98 / 51 (auto/); ja5 16:21 Pulse 87 MON; Pulse Ox 89% ; ja5 16:36 BP 99 / 56 (auto/); ja5 16:37 Pulse 84 MON; Pulse Ox 94% ; ja5 17:01 BP 102 / 57; Pulse 88; Resp 14 S; Temp 97.5(TE); Pulse Ox 94% on 50% Venturi mask; Pain ja5 0/10; 10:35 Body Mass Index 26.95 (71.21 kg, 162.56 cm) ja5 MDM: 10:13 Furnace Unloader/Pulse Ox/q 30 min VS ordered. br1 10:13 IV Saline Lock ordered. br1 10:13 Rhythm Strip to chart ordered. br1 10:13 Undress patient appropriately for examination ordered. br1 10:13 Basic Metabolic Profile Ordered. EDMS 10:13 CBC with Diff Ordered. EDMS 10:13 Cardiac Injury Profile Ordered. EDMS 10:13 Troponin Ordered. EDMS 10:13 ECG WITH READING ER PHYS+CARDIAG ordered. EDMS 10:29 Oxygen at 15 Liters/Minute NRB Mask ordered. br1 10:29 -Blood Culture (Adults Only), peripheral from different site, or from device/port/PICC br1 etc. if present ordered. 10:29 Chest, 1 View Ordered. EDMS 10:29 BNP Ordered. EDMS 10:30 Acetaminophen Tablet 650 mg PO once ordered. br1 10:30 Call Respiratory ordered. br1 10:31 Lactic Acid (Baird tube on ice) Ordered. EDMS 10:31 -Arterial Blood Gas Ordered. EDMS 10:31 -Blood Culture Ordered. EDMS 10:31 Large bore IV x 2 ordered. br1 10:32 PT/INR Ordered. EDMS 10:32 PTT Ordered. EDMS 10:32 Urinalysis Ordered. EDMS 10:32 Urine Culture Ordered. EDMS 10:33 Call Respiratory complete. ar3 10:34 -Blood Culture (Adults Only), peripheral from different site, or from device/port/PICC ar3 etc. if present complete. 10:35 BLOOD CULTURES Ordered. EDMS 10:37 Cefepime 2 grams IVPB at 100 mL/hr once over 30 mins; dilute in 50mL of NS or D5W br1 ordered. 10:37 NS 0.9% (Sepsis- hypotension or lactate >4mmol/L, 30ml/kg) 30 ml/kg IV at bolus once; br1 Give in 500mL aliquots, assess for rales after each, inform provider ordered. 10:41 Financial registration complete. mpb 10:41 [facility] Payment Agreement was scanned into [employer] and attached to record. mpb 10:44 Chicas ordered. br1 11:08 BED REQUEST+ADM ordered. EDMS 11:22 LIVER PROFILE Ordered. EDMS 11:43 DIFFERENTIAL NO CHARGE Ordered. EDMS 11:43 PLATELET ESTIMATE Ordered. EDMS 12:03 Basic Metabolic Profile Reviewed. br1 12:03 CBC with Diff Reviewed. br1 12:03 BNP Reviewed. br1 12:03 Lactic Acid (Baird tube on ice) Reviewed. br1 12:03 -Arterial Blood Gas Reviewed. br1 12:03 PT/INR Reviewed. br1 12:03 LIVER PROFILE Reviewed. br1 12:03 Cardiac Injury Profile Reviewed. br1 12:03 Troponin Reviewed. br1 12:03 PTT Reviewed. br1 12:03 Urinalysis Reviewed. br1 12:03 PLATELET ESTIMATE Reviewed. br1 12:03 Chest, 1 View Reviewed. br1 13:08 Admission / Observation Status ordered. EDMS 13:09 NPO DIET ordered. EDMS 13:09 LACTIC ACID LEVEL, LACTATE Ordered. EDMS 13:19 CT Chest without contrast Ordered. EDMS 14:33 NS 0.9% 1000 ml IV at 100 mL/hr continuous ordered. jc4 14:35 MRSA SCREEN Ordered. EDMS 15:05 TROPONIN Ordered. EDMS 17:20 CT Head without contrast Ordered. EDMS 21:09 T-Sheet-- Draft Copy was scanned into [employer] and attached to record. klr 09/19 12:39 ECG/EKG was scanned into [employer] and attached to record. gb 12:39 Trend VS was scanned into [employer] and attached to record. gb Administered Medications: 09/18 10:56 Drug: NS 0.9% (Sepsis- hypotension or lactate >4mmol/L, 30ml/kg) 500 ml Route: IV; ja5 Rate: bolus; Site: left forearm; 12:16 Follow up: BP 76 / 41; Pulse 99 bpm; Resp 20 bpm; Pulse Ox 98% Mask: Non-rebreather jc4 mask; IV Intake: 500ml 14:16 Follow up: IV Intake: 500ml jc4 11:15 Drug: Acetaminophen 650 mg [acetaminophen 325 mg tablet (2 tabs)] Route: PO; ja5 13:49 Follow up: Temp 98.5 Oral; Response: Temperature is decreased ld5 12:44 Drug: Cefepime 2 grams [cefepime 2 gram solution for injection] Route: IVPB; Rate: 100 ja5 mL/hr; Infused Over: 30 mins; Site: left femoral; 14:33 Drug: NS 0.9% 1000 ml [sodium chloride 0.9 % intravenous solution] Route: IV; Rate: 100 jc4 mL/hr; Site: left antecubital; 17:05 Follow up: IV Status: Infusion continued upon admit; IV Intake: 200ml ja5 Signatures: Dispatcher [employer] EDMS Edwige Haines, Reg Reg gb Reymundo Bishop MD MD br1 Ninoska Arellano, AVIATION SUPPORT EQUIPMENT REPAIRER AVIATION SUPPORT EQUIPMENT REPAIRER ar3 Sandra Nash RN RN jc4 Nina CrawleyRN RN [facility] Hiram Mosqueda, Reg Reg mpb Radha Zaldivar klr Allison Baldwin RN RN ja5 Radha Milian RN ld5 The chart was reviewed and I authenticate all verbal orders and agree with the evaluation and treatment provided.Corrections: (The following items were deleted from the chart) 10:43 10:41 Straight cath ordered. br1 br1 11:22 10:32 LIVER PROFILE+LAB ordered. EDCT EDMS Attachments: 10:41 [facility] Payment Agreement mpb 21:09 T-Sheet-- Draft Copy r 09/19 12:39 ECG/EKG gb Chart Complete MTDD
--- NOTE | 2016-09-20 18:16 | EDDOCDS ---
Nurse's Notes [facility] Name: Kosta Keys Age: 86 yrs Sex: Female : 1930 Arrival Date: 09/18/2016 Time: 09:58 Bed 3 Private MD: Jesus Shea Diagnosis: Pneumonia, unspecified organism;Hypotension Presentation: 09/18 10:02 Presenting complaint: EMS states: called to residence by patient's . Allegedly, jc4 patient was attempting to get to toilet, and fell, possibly losing consciousness. assisted patient back to bed. Per EMS, patient complains of weakness. Had been incontinent of stool at home. Care prior to arrival: See EMS report. Glucose check. 95 mg/dl. 10:02 Method Of Arrival: Ambulance jc4 10:05 Presenting complaint: Patient states: "I've been incontinent of urine and feces and I jc4 fell in the bathroom trying to get to the bathroom. I just feel so weak". The last date and time the patient was known to be well was was at an unknown time on an unknown date. No acute neurological deficit is noted. The patients blood glucose was checked before arriving to the hospital and was found to be normal. Suicide/Homicide risk assessment- the patient denies having any suicidal and/or homicidal ideations and does not present with any other emotional, behavioral or mental health complaints. Status: Patient is not a personal service workers or dependent. Transition of care: patient was not received from another setting of care. 10:05 Acuity: SUZANNA Level 3 jc4 10:58 Adult Sepsis Screening: Patient has new or worsening altered mentation (1 point). jc4 Patient's respiratory rate is less than 22. Systolic blood pressure is less than or equal to 100 (1 point). Patient has a qSOFA score of 2. Patient has cough and/or SOB- Positive Sepsis Screen. Notified Lizbet Bishop MD Patient made SUZANNA Level 2. Patient placed in exam room. Charge nurse notified. 10:58 Acuity: SUZANNA Level 2 jc4 Triage Assessment: 10:14 The onset of the patients symptoms was more than three hours ago. General: Appears in jc4 no apparent distress. Pain: Denies pain. Neurological: Level of Consciousness is awake, alert, Reports dizziness. Respiratory: Reports cough that is non-productive. Historical: - Allergies: PENICILLINS (Rash); SULFA (SULFONAMIDES) (Jaundice); - Home Meds: 1. prednisone 10 mg oral tab 1 tab once daily (Last dose: 09/17/2016) - PMHx: Left Kidney Cancer; Hypertension; - PSHx: Appendectomy; Hysterectomy; Release of abd adhesions; - Social history: Smoking status: Patient states was never smoker of tobacco. No barriers to communication noted, The patient speaks fluent Japanese. - Family history: Not pertinent. - : The pt / caregiver states he / she is not on anticoagulants. Home medication list is obtained from the patient. - Exposure Risk Screening:: None identified. Screenin:29 Screening information is obtained from the patient. Fall risk: At risk due to prior ja5 history of falls. Assistance ADL's: requires no assistance with activities of daily living. Abuse/DV Screen: The patient / caregiver reports he/she is: not in a situation that causes fear, pain or injury. Nutritional screening: On. Advance Directives: Currently, there is a health care proxy, Nikki. Neal Keys, . There is an active DNR order There is no living will. There is an active Power of Quarryman, Nery Velezlyvijay, . home support is adequate. Assessment: 11:25 General: Appears in no apparent distress, Behavior is drowsy. Neurological: Level of ja5 Consciousness is awake, lethargic, Oriented to person, place, time. Cardiovascular: Capillary refill < 3 seconds Heart tones S1 S2 present. Respiratory: Airway is patent Respiratory effort is even, unlabored, Respiratory pattern is regular, symmetrical, Breath sounds are clear bilaterally. GI: Reports incontinence. : Reports incontinence. Derm: Skin is fragile, Skin is pink, warm & dry. 12:17 General: Pt is lethargic. B/P 76/41 at this time. Lungs clear. 2nd IVF 500 ml bolus jc4 infusing at this time. at bedside. 13:32 General: Patient resting comfortably in stretcher, still hypotensive, 500 ml IV bolus ja5 #[address] scan.. 13:49 General: Pt returned from CT. Tolerated well. Pt resting comfortably in bed. States "I ld5 feel good". Fluids infusing. Will continue to monitor. 14:17 General: Pt resting on stretcher. No distress noted at this time. Pt alert, speaking jc4 with . Color pink, skin warm and dry. Respirations easy and full. monitoring tech - sinus rhythm without ectopy. Respirations easy and full. Breath sounds with rales noted in based. Dr. Bishop made aware. Spoke with Dr. Colón regarding patient condition. Received orders to maintain IVF at 100 cc/hour. 15:44 General: Patient in stretcher resting, alert upon arousal, denies pain and stated she ja5 is comfortable. IV fluids infusing at 100 ml/hr with BP 112/56 at this time.. 16:18 General: Patient asleep, alert upon arousal, denies pain at this time. Nasal cannula ja5 placed on patient 4/L/min O2 and is sustaining O2 sat 91-95%, will continue to monitor. . 16:31 General: Patient O2 sats did not tolerate the nasal cannula, patient was placed on a ja5 venti mask at 50% O2 and is sustaining O2 sat 95% at this time. . 17:06 General: Appears in no apparent distress, comfortable, Behavior is cooperative, drowsy. ja5 Neurological: Level of Consciousness is awake, Oriented to person, place, time. Cardiovascular: Capillary refill < 3 seconds. Respiratory: Airway is patent Respiratory effort is even, unlabored, Respiratory pattern is regular, symmetrical, Breath sounds with rales expiratory bilaterally. Derm: Skin is intact, is fragile, Skin is pale. Vital Signs: 10:17 BP 100 / 54; Pulse 122; Resp 18; Temp 101.9(TE); Pulse Ox 83% on 5 lpm NC; nb2 10:35 Weight 71.21 kg (M); Height 5 ft. 4 in. (162.56 cm) (R); ja5 10:39 BP 90 / 51 (auto/); jc4 10:40 Pulse 110 MON; Pulse Ox 95% ; jc4 10:45 BP 97 / 47 (auto/); jc4 10:46 Pulse 114 MON; Pulse Ox 92% ; jc4 10:51 BP 110 / 56 (auto/); jc4 10:53 Pulse 112 MON; Pulse Ox 92% ; jc4 11:06 BP 124 / 62 (auto/); jc4 11:10 Pulse 122 MON; Pulse Ox 94% ; jc4 11:36 BP 112 / 56 (auto/); jc4 11:37 Pulse 114 MON; Pulse Ox 97% ; jc4 11:51 BP 76 / 44 (auto/); jc4 11:52 Pulse 104 MON; Pulse Ox 97% ; jc4 12:05 Pulse 110 MON; Pulse Ox 98% ; ja5 12:06 BP 75 / 40 (auto/); jc4 12:06 Pulse 106 MON; Pulse Ox 99% ; jc4 12:06 BP 77 / 42 (auto/); ja5 12:07 BP 79 / 44 (auto/); jc4 12:08 Pulse 107 MON; Pulse Ox 99% ; jc4 12:10 BP 76 / 41 (auto/); jc4 12:11 Pulse 103 MON; Pulse Ox 97% ; jc4 12:16 BP 76 / 41; Pulse 99; Resp 20; Pulse Ox 98% on Mask: Non-rebreather mask; jc4 12:21 BP 82 / 47 (auto/); jc4 12:22 Pulse 100 MON; Pulse Ox 99% ; jc4 12:36 BP 80 / 44 (auto/); jc4 12:37 Pulse 96 MON; Pulse Ox 99% ; jc4 12:51 BP 78 / 41 (auto/); jc4 12:52 Pulse 100 MON; Pulse Ox 99% ; jc4 13:06 BP 84 / 45 (auto/); jc4 13:07 Pulse 94 MON; Pulse Ox 98% ; jc4 13:21 BP 83 / 44 (auto/); jc4 13:21 Pulse 93 MON; Pulse Ox 98% ; jc4 13:36 BP 78 / 39 (auto/); ld5 13:37 Pulse 90 MON; Pulse Ox 100% on Non-rebreather mask; ld5 13:49 Temp 98.5(O); ld5 13:51 BP 82 / 49 (auto/); ld5 13:51 Pulse 91 MON; Pulse Ox 99% on Non-rebreather mask; ld5 14:06 BP 82 / 53 (auto/); jc4 14:07 Pulse 89 MON; Pulse Ox 98% ; jc4 14:21 BP 97 / 50 (auto/); jc4 14:22 Pulse 86 MON; Pulse Ox 97% ; jc4 14:36 BP 87 / 51 (auto/); jc4 14:36 Pulse 88 MON; Pulse Ox 97% ; jc4 14:51 BP 91 / 50 (auto/); ja5 14:51 Pulse 88 MON; Pulse Ox 98% ; ja5 14:55 BP 91 / 50; Pulse 86; Resp 16; Pulse Ox 98% on Non-rebreather mask; jc4 15:06 BP 84 / 48 (auto/); ja5 15:06 Pulse 87 MON; Pulse Ox 98% ; ja5 15:21 BP 89 / 50 (auto/); ja5 15:21 Pulse 84 MON; Pulse Ox 98% ; ja5 15:36 BP 112 / 56 (auto/); ja5 15:36 Pulse 89 MON; Pulse Ox 98% ; ja5 15:51 BP 112 / 56 (auto/); ja5 15:51 Pulse 87 MON; Pulse Ox 98% ; ja5 16:06 BP 114 / 57 (auto/); ja5 16:06 Pulse 84 MON; Pulse Ox 98% ; ja5 16:21 BP 98 / 51 (auto/); ja5 16:21 Pulse 87 MON; Pulse Ox 89% ; ja5 16:36 BP 99 / 56 (auto/); ja5 16:37 Pulse 84 MON; Pulse Ox 94% ; ja5 17:01 BP 102 / 57; Pulse 88; Resp 14 S; Temp 97.5(TE); Pulse Ox 94% on 50% Venturi mask; Pain ja5 0/10; 10:35 Body Mass Index 26.95 (71.21 kg, 162.56 cm) ja5 Vitals: 10:17 Log In Time N/A - ambulance arrival. nb2 14:55 Glucose Measurement D-stick done by EMS. 4 ED Course: 09:59 Patient visited by Ninoska Arellano PCA. ar3 09:59 Allison Baldwin,RN is Primary Nurse. ar3 09:59 Sandra Nash, RN is Primary Nurse. ar3 09:59 Jesus Shea is Private Physician. ar3 09:59 Patient moved to Waiting ar3 09:59 Patient moved to 10 ar3 10:08 Triage Initiated jc4 10:12 Lizbet Bishop MD is Attending Physician. br1 10:17 Patient visited by Jacquelin Hernandez. nb2 10:18 Basic Metabolic Profile Sent. nb2 10:28 Patient visited by Lizbet Bishop MD. br1 10:29 Patient moved to [facility] 10:30 The patient / caregiver is instructed regarding the plan of care and ED course. jc4 10:33 monitoring tech on. Pulse ox on. NIBP on. ct3 10:33 EKG done. (by ED staff). Reviewed by Lizbet Bishop MD. ct3 10:37 Patient visited by Autumn Casanova PCA. ct3 10:40 -Arterial Blood Gas Sent. lb 10:41 [facility] Payment Agreement was scanned into [employer] and attached to record. mpb 10:54 Patient visited by Autumn Casanova PCA. ct3 10:54 Accompanied by Family Member, Patient has correct armband on for positive ct3 identification. Placed in gown. Bed in low position. Call light in reach. Side rails up X2. 10:59 Inserted saline lock: 20 gauge in left forearm The patient tolerated the procedure well.jc4 11:10 Urinalysis Sent. jc4 11:10 Urine Culture Sent. jc4 11:10 Chicas cath inserted 16 Fr. Balloon inflated. To gravity drainage. Urine specimen jc4 collected. Patient tolerated well. 11:33 Patient visited by Allison Baldwin,JULIET. ja5 11:34 LIVER PROFILE Sent. jc4 11:34 BLOOD CULTURES Sent. jc4 11:34 PT/INR Sent. jc4 11:34 PTT Sent. jc4 11:34 Lactic Acid (Baird tube on ice) Sent. jc4 11:34 BNP Sent. jc4 11:34 CBC with Diff Sent. jc4 11:34 Cardiac Injury Profile Sent. jc4 11:34 Troponin Sent. jc4 11:35 Inserted saline lock: 20 gauge in left antecubital area The patient tolerated the jc4 procedure well. 11:59 Chest, 1 View Returned. EDMS 12:16 Patient visited by Sandra Nash, JULIET. jc4 12:19 DIFFERENTIAL NO CHARGE Sent. jc4 12:20 Chrissy Colón is Hospitalizing Provider. br1 13:43 EKG-ADULT Returned. EDMS 13:50 Patient visited by Radha Milian,JULIET. ld5 15:10 No procedures done that require assistance. jc4 21:09 T-Sheet-- Draft Copy was scanned into [employer] and attached to record. klr 09/19 12:39 ECG/EKG was scanned into [employer] and attached to record. gb 12:39 Trend VS was scanned into [employer] and attached to record. gb Administered Medications: 09/18 10:56 Drug: NS 0.9% (Sepsis- hypotension or lactate >4mmol/L, 30ml/kg) 500 ml Route: IV; ja5 Rate: bolus; Site: left forearm; 12:16 Follow up: BP 76 / 41; Pulse 99 bpm; Resp 20 bpm; Pulse Ox 98% Mask: Non-rebreather jc4 mask; IV Intake: 500ml 14:16 Follow up: IV Intake: 500ml jc4 11:15 Drug: Acetaminophen 650 mg [acetaminophen 325 mg tablet (2 tabs)] Route: PO; ja5 13:49 Follow up: Temp 98.5 Oral; Response: Temperature is decreased ld5 12:44 Drug: Cefepime 2 grams [cefepime 2 gram solution for injection] Route: IVPB; Rate: 100 ja5 mL/hr; Infused Over: 30 mins; Site: left femoral; 14:33 Drug: NS 0.9% 1000 ml [sodium chloride 0.9 % intravenous solution] Route: IV; Rate: 100 jc4 mL/hr; Site: left antecubital; 17:05 Follow up: IV Status: Infusion continued upon admit; IV Intake: 200ml ja5 Attachments: 12:39 Trend VS gb Intake: 09/18 12:16 IV: 500.00ml; Total: 500.00ml. jc4 13:20 IV: 500.00ml (NS); Total: 1000.00ml. jc4 14:16 IV: 500.00ml; Total: 1500.00ml. jc4 17:05 IV: 200.00ml; Total: 1700.00ml. ja5 Output: 13:49 Urine: 500.00ml (Chicas); Total: 500.00ml. ld5 17:04 Urine: 100.00ml (Chicas); Total: 600.00ml. ja5 RT: 10:40 ABG's drawn from right radial artery allens test done and positive pressure held for 5 lb minutes no bleeding noted pressure bandage applied specimen sent pt. tolerated well. Order Results: Lab Order: Basic Metabolic Profile; SPEC'M 09/18/16 11:30 Test: GLUCOSE, FASTING; Value: 82; Range: 83-110; Abnormal: Below low normal; Units: MG/DL; Status: F Test: BLOOD UREA NITROGEN; Value: 30; Range: 7-18; Abnormal: Above high normal; Units: MG/DL; Status: F Test: CREATININE FOR GFR; Value: 1.32; Range: 0.55-1.02; Abnormal: Above high normal; Units: MG/DL; Status: F Test: GLOMERULAR FILTRATION RATE; Value: 40.7; Range: >32; Status: F Test: SODIUM LEVEL; Value: 134; Range: 136-145; Abnormal: Below low normal; Units: MEQ/L; Status: F Test: POTASSIUM SERUM; Value: 3.5; Range: 3.5-5.1; Units: MEQ/L; Status: F Test: CHLORIDE LEVEL; Value: 94; Range: 98-107; Abnormal: Below low normal; Units: MEQ/L; Status: F Test: CARBON DIOXIDE LEVEL; Value: 31; Range: 21-32; Units: MEQ/L; Status: F Test: ANION GAP; Value: 9; Range: 8-16; Units: MEQ/L; Status: F Test: CALCIUM LEVEL; Value: 7.9; Range: 8.8-10.2; Abnormal: Below low normal; Units: MG/DL; Status: F Test Note: ; Units are mL/min/1.73 m2 Chronic Kidney Disease Staging per NKF: Stage I & II GFR >=60 Normal to Mildly Decreased Stage III GFR 30-59 Moderately Decreased Stage IV GFR 15-29 Severely Decreased Stage V GFR <15 Very Little GFR Left ESRD GFR <15 on EMPLOYMENT COACH Lab Order: CBC with Diff; SPEC'M 09/18/16 11:30 Test: WHITE BLOOD COUNT; Value: 4.3; Range: 4.0-10.0; Units: K/mm3; Status: F Test: RED BLOOD COUNT; Value: 4.23; Range: 4.00-5.40; Units: M/mm3; Status: F Test: HEMOGLOBIN; Value: 13.3; Range: 12.0-16.0; Units: g/dl; Status: F Test: HEMATOCRIT; Value: 40.7; Range: 36.0-47.0; Units: %; Status: F Test: MEAN CORPUSCULAR VOLUME; Value: 96.3; Range: 80.0-96.0; Abnormal: Above high normal; Units: fl; Status: F Test: MEAN CORPUSCULAR HEMOGLOBIN; Value: 31.4; Range: 27.0-33.0; Units: pg; Status: F Test: MEAN CORPUSCULAR HGB CONC; Value: 32.6; Range: 32.0-36.5; Units: g/dl; Status: F Test: RED CELL DISTRIBUTION WIDTH; Value: 14.6; Range: 11.5-14.5; Abnormal: Above high normal; Units: %; Status: F Test: PLATELET COUNT, AUTOMATED; Value: 169; Range: 150-450; Units: k/mm3; Status: F Test: PLATELET ESTIMATE; Range: NORMAL; Status: I Test: NEUTROPHILS; Value: 57; Range: 35-75; Units: %; Status: F Test: BANDS; Value: 7; Range: < 11; Units: %; Status: F Test: LYMPHOCYTES; Value: 13; Range: 16-52; Abnormal: Below low normal; Units: %; Status: F Test: MONOCYTES; Value: 6; Range: 0-8; Units: %; Status: F Test: METAMYELOCYTES; Value: 2; Range: 0-0; Abnormal: Above high normal; Units: %; Status: F Test: ATYPICAL LYMPH; Value: 15; Range: 0-5; Abnormal: Above high normal; Units: %; Status: F Test: RBC MORPHOLOGY; Value: NORMAL; Status: F Lab Order: Cardiac Injury Profile; SPEC'M 09/18/16 11:30 Test: CPK CREATINE PHOSPHOKINASE; Value: 61; Range: 26-192; Units: U/L; Status: F Test: CK-MB VALUE MASS; Value: 1.0; Range: 0.0-3.6; Units: NG/ML; Status: F Test: MB/CK RELATIVE INDEX; Value: 1.63; Range: < OR =4; Status: F Test Note: ; DIAGNOSIS CRITERIA MMB ng/ml Relative Index (RI) NON-AMI < or = 5 N/A BAIRD ZONE > 5 < or = 4 AMI > 5 > 4 Lab Order: Troponin; SPEC'M 09/18/16 11:30 Test: TROPONIN I; Value: 0.07; Range: < 0.10; Units: NG/ML; Status: F Test Note: ; Troponin I Reference Interval for Siemens [place] LOCI: 99th Percentile= 0.00-0.045 ng/ml Risk Stratification: <= 0.10 ng/ml Decreased Risk for Adverse Clinical Events. 0.10-1.50 ng/ml Increased Risk for Adverse Clinical Events. Evaluation of additional criterion and/or repeat testing in 2-6 hours is suggested to rule out myocardial damage. >= 1.50 ng/ml Indicative of Myocardial Injury. Lab Order: BNP; SPEC'M 09/18/16 11:30 Test: BRAIN NATRIURETIC PEPTIDE; Value: 212; Range: <100; Abnormal: Above high normal; Units: PG/ML; Status: F Lab Order: Lactic Acid (Baird tube on ice); SPEC'M 09/18/16 11:30 Test: LACTIC ACID LEVEL, LACTATE; Value: 3.0; Range: 0.4-2.0; Abnormal: Above upper panic limits; Units: MMOL/L; Status: F Lab Order: -Arterial Blood Gas; SPEC' 09/18/16 10:36 Test: ABG pH (ARTERIAL); Value: 7.511; Range: 7.350-7.450; Abnormal: Above high normal; Units: UNITS; Status: F Test: ABG PARTIAL PRESSURE CO2; Value: 30.5; Range: 35.0-45.0; Abnormal: Below low normal; Units: mmHg; Status: F Test: ABG PARTIAL PRESSURE O2; Value: 61.1; Range: 75.0-100.0; Abnormal: Below low normal; Units: mmHg; Status: F Test: ABG TOTAL CO2; Value: 24.8; Range: 23.0-31.0; Units: MEQ/L; Status: F Test: ABG HCO3; Value: 23.8; Range: 22.0-26.0; Units: MEQ/L; Status: F Test: ABG BASE EXCESS; Value: 1.6; Range: -2.0-2.0; Status: F Test: ABG STANDARD HCO3; Value: 25.8; Range: 22.0-26.0; Units: MEQ/L; Status: F Test: ABG O2 SATURATION; Value: 92.2; Range: 95.0-99.0; Abnormal: Below low normal; Units: %; Status: F Test: ABG DEVICE; Value: NASAL LORA; Status: F Lab Order: PT/INR; [facility] 09/18/16 11:30 Test: PROTHROMBIN TIME; Value: 14.6; Range: 12.3-14.5; Abnormal: Above high normal; Units: SECONDS; Status: F Test: INR; Value: 1.13; Status: F Test Note: ; THERAPUTIC HUMAN INR VALUES INDICATIONS NORMAL RANGES PROPHYLAXIS/TREATMENT OF: VENOUS THROMBOSIS 2.0-3.0 PULMONARY EMBOLISM 2.0-3.0 PREVENTION OF SYSTEMIC EMBOLISM FROM: TISSUE HEART VALVES 2.0-3.0 ACUTE MYOCARDIAL INFARCTION 2.0-3.0 VALVULAR HEART DISEASE 2.0-3.0 ATRIAL FIBRILLATION 2.0-3.0 MECHANICAL VALVES(HIGH RISK) 2.5-3.5 RECURRENT MYOCARDIAL INFARCTION 2.5-3.5 Lab Order: PTT; [facility] 09/18/16 11:30 Test: PARTIAL THROMBOPLASTIN TIME; Value: 27.6; Range: 26.6-37.1; Units: SECONDS; Status: F Lab Order: Urinalysis; [facility] 09/18/16 11:08 Test: APPEARANCE, URINE; Value: CLEAR; Range: CLEAR; Status: F Test: COLOR, URINE; Value: YELLOW; Range: YELLOW; Status: F Test: PH,URINE; Value: 7.0; Range: 5.0-9.0; Units: UNITS; Status: F Test: SPECIFIC GRAVITY URINE AUTO; Value: 1.012; Range: 1.002-1.035; Status: F Test: PROTEIN, URINE AUTO; Value: NEGATIVE; Range: NEGATIVE; Units: mg/dL; Status: F Test: GLUCOSE, URINE (UA) AUTO; Value: NEGATIVE; Range: NEGATIVE; Units: mg/dL; Status: F Test: KETONE, URINE AUTO; Value: NEGATIVE; Range: NEGATIVE; Units: mg/dL; Status: F Test: UROBILINOGEN, URINE AUTO; Value: 0.2; Range: 0.0-2.0; Units: mg/dL; Status: F Test: BILIRUBIN, URINE AUTO; Value: NEGATIVE; Range: NEGATIVE; Status: F Test: NITRITE, URINE AUTO; Value: NEGATIVE; Range: NEGATIVE; Status: F Test: LEUKOCYTE ESTERASE, URINE AUTO; Value: NEGATIVE; Range: NEGATIVE; Status: F Test: BLOOD, URINE BLOOD; Value: NEGATIVE; Range: NEGATIVE; Status: F Test: WBC, URINE AUTO; Value: 2; Range: 0-3; Units: /HPF; Status: F Test: RBC, URINE AUTO; Value: 2; Range: 0-3; Units: /HPF; Status: F Test: BACTERIA, URINE AUTO; Value: NEGATIVE; Range: NEGATIVE; Status: F Test: SQUAMOUS EPITHELIAL CELL UR AU; Value: 0; Range: 0-6; Units: /HPF; Status: F Test: MUCUS, URINE; Value: SMALL; Range: NEGATIVE; Status: F Test: HYALINE CAST, URINE AUTO; Value: 0; Range: 0-1; Units: /LPF; Status: F Lab Order: LIVER PROFILE; SPEC'M 09/18/16 11:30 Test: AST/SGOT; Value: 24; Range: 15-37; Units: U/L; Status: F Test: ALT/SGPT; Value: 27; Range: 12-78; Units: U/L; Status: F Test: ALKALINE PHOSPHATASE; Value: 38; Range: 45-117; Abnormal: Below low normal; Units: U/L; Status: F Test: BILIRUBIN,TOTAL; Value: 1.5; Range: 0.2-1.0; Abnormal: Above high normal; Units: MG/DL; Status: F Test: BILIRUBIN,DIRECT; Value: 0.4; Range: 0.0-0.2; Abnormal: Above high normal; Units: MG/DL; Status: F Test: TOTAL PROTEIN; Value: 6.5; Range: 6.4-8.2; Units: GM/DL; Status: F Test: ALBUMIN; Value: 3.1; Range: 3.2-5.2; Abnormal: Below low normal; Units: GM/DL; Status: F Test: ALBUMIN/GLOBULIN RATIO; Value: 0.91; Range: 1.00-1.93; Abnormal: Below low normal; Status: F Lab Order: PLATELET ESTIMATE; SPEC'M 09/18/16 11:30 Test: PLATELET ESTIMATE; Value: NORMAL; Range: NORMAL; Status: F Test Note: ; A FEW GIANT PLAT NOTED ON SLIDE. 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: ct; : 1930 Requested By: LIZBET Mendez; Order Number: [id number] Reading MD: Ashley Rico; Measurements; Intervals Burt; Rate: 116 P: 63; WV: 80 QRS: 19; QRSD: 90 T: 67; QT: 305; QTc: 424; Interpretive Statements; SINUS TACHYCARDIA WITH SHORT WV INTERVAL; ABNORMAL RHYTHM ECG; NSTTW ABNORMALITY; INCREASED RATE 12/07/11; Electronically Signed On 09-18-2016 13:15:46 EST by Ashley Rico; Radiology Order: Chest, 1 View Test: Chest, 1 View REASON FOR EXAMINATION: Shortness of Breath; AP portable semi upright chest radiograph 09/18/2016; ; Indication: Shortness of breath; ; Comparison: PA and lateral chest 07/03/12, CT of the abdomen and pelvis; 10/07/2014, CT chest 07/08/2013; ; There is a right IJ venous Port-A-Cath with tip in the expected location of; superior vena cava. There is underlying hyperinflation consistent with COPD.; Areas of alveolar infiltrate are seen within the medial segment of the right; middle lobe and in the left lower lobe distribution. There are no pleural; effusions.; ; Impression:; ; Right IJ venous Port-A-Cath with tip in the expected location of the SVC.; Infiltrates identified in the medial segment right middle lobe and in the left; lower lobe. Follow-up to resolution recommended.; ; COPD; ; ; Signed by; Aaliyah Alcantara MD 09/18/2016 11:36 A; Outcome: 12:20 Decision to Hospitalize by Provider. br1 17:08 Discharge Assessment: patient administered narcotics - no. Admitted to ICU. critical. ja5 CT Study completed. Property :Personal belongings accompany Pt. 17:09 The following High Risk Discharge criteria are identified: None. Admitted to ICU ja5 accompanied by nurse, via stretcher, with oxygen, on monitor, with chart. Admission hand-off: Report called to JULIET Magdaleno. 17:14 Patient left the ED. ja5 Signatures: Dispatcher [employer] EDEmiliano Lozano, RN RN Edwige Squires, Reg Reg gb Ashley Mayers Brian, MD MD br1 Ninoska Arellano, DIRECTOR [employer] DIRECTOR [employer] ar3 Radha Milian,RN RN ld5 Sandra Nash, RN RN jc4 Autumn Casanova, DIRECTOR [employer] DIRECTOR [employer] ct3 Hiram Mosqueda, Reg Reg mpRadha Caputo Nicole nb2 Anderson, Jessica,RN RN ja5 Chart Complete [facility]
--- NOTE | 2016-09-20 18:16 | EDDOCDS ---
Physician Documentation [facility] Name: Cheli Keys Age: 86 yrs Sex: Female : 1930 Arrival Date: 09/18/2016 Time: 09:58 Bed 3 Private MD: Jesus Shea Disposition: 09/18/16 12:20 Hospitalization ordered by Chrissy Colón for Inpatient Admission. Preliminary diagnosis are Pneumonia, unspecified organism, Hypotension. - Bed requested for M ICU. - Status is Inpatient Admission. ja5 - Condition is Stable. - Problem is new. - Symptoms are unchanged. Historical: - Allergies: PENICILLINS (Rash); SULFA (SULFONAMIDES) (Jaundice); - Home Meds: 1. prednisone 10 mg oral tab 1 tab once daily (Last dose: 09/17/2016) - PMHx: Left Kidney Cancer; Hypertension; - PSHx: Appendectomy; Hysterectomy; Release of abd adhesions; - Social history: Smoking status: Patient states was never smoker of tobacco. No barriers to communication noted, The patient speaks fluent Ukrainian. - Family history: Not pertinent. - : The pt / caregiver states he / she is not on anticoagulants. Home medication list is obtained from the patient. - Exposure Risk Screening:: None identified. Vital Signs: 09/18 10:17 BP 100 / 54; Pulse 122; Resp 18; Temp 101.9(TE); Pulse Ox 83% on 5 lpm NC; nb2 10:35 Weight 71.21 kg / 156.99 lbs (M); Height 5 ft. 4 in. (162.56 cm) (R); ja5 10:39 BP 90 / 51 (auto/); jc4 10:40 Pulse 110 MON; Pulse Ox 95% ; jc4 10:45 BP 97 / 47 (auto/); jc4 10:46 Pulse 114 MON; Pulse Ox 92% ; jc4 10:51 BP 110 / 56 (auto/); jc4 10:53 Pulse 112 MON; Pulse Ox 92% ; jc4 11:06 BP 124 / 62 (auto/); jc4 11:10 Pulse 122 MON; Pulse Ox 94% ; jc4 11:36 BP 112 / 56 (auto/); jc4 11:37 Pulse 114 MON; Pulse Ox 97% ; jc4 11:51 BP 76 / 44 (auto/); jc4 11:52 Pulse 104 MON; Pulse Ox 97% ; jc4 12:05 Pulse 110 MON; Pulse Ox 98% ; ja5 12:06 BP 75 / 40 (auto/); jc4 12:06 Pulse 106 MON; Pulse Ox 99% ; jc4 12:06 BP 77 / 42 (auto/); ja5 12:07 BP 79 / 44 (auto/); jc4 12:08 Pulse 107 MON; Pulse Ox 99% ; jc4 12:10 BP 76 / 41 (auto/); jc4 12:11 Pulse 103 MON; Pulse Ox 97% ; jc4 12:16 BP 76 / 41; Pulse 99; Resp 20; Pulse Ox 98% on Mask: Non-rebreather mask; jc4 12:21 BP 82 / 47 (auto/); jc4 12:22 Pulse 100 MON; Pulse Ox 99% ; jc4 12:36 BP 80 / 44 (auto/); jc4 12:37 Pulse 96 MON; Pulse Ox 99% ; jc4 12:51 BP 78 / 41 (auto/); jc4 12:52 Pulse 100 MON; Pulse Ox 99% ; jc4 13:06 BP 84 / 45 (auto/); jc4 13:07 Pulse 94 MON; Pulse Ox 98% ; jc4 13:21 BP 83 / 44 (auto/); jc4 13:21 Pulse 93 MON; Pulse Ox 98% ; jc4 13:36 BP 78 / 39 (auto/); ld5 13:37 Pulse 90 MON; Pulse Ox 100% on Non-rebreather mask; ld5 13:49 Temp 98.5(O); ld5 13:51 BP 82 / 49 (auto/); ld5 13:51 Pulse 91 MON; Pulse Ox 99% on Non-rebreather mask; ld5 14:06 BP 82 / 53 (auto/); jc4 14:07 Pulse 89 MON; Pulse Ox 98% ; jc4 14:21 BP 97 / 50 (auto/); jc4 14:22 Pulse 86 MON; Pulse Ox 97% ; jc4 14:36 BP 87 / 51 (auto/); jc4 14:36 Pulse 88 MON; Pulse Ox 97% ; jc4 14:51 BP 91 / 50 (auto/); ja5 14:51 Pulse 88 MON; Pulse Ox 98% ; ja5 14:55 BP 91 / 50; Pulse 86; Resp 16; Pulse Ox 98% on Non-rebreather mask; jc4 15:06 BP 84 / 48 (auto/); ja5 15:06 Pulse 87 MON; Pulse Ox 98% ; ja5 15:21 BP 89 / 50 (auto/); ja5 15:21 Pulse 84 MON; Pulse Ox 98% ; ja5 15:36 BP 112 / 56 (auto/); ja5 15:36 Pulse 89 MON; Pulse Ox 98% ; ja5 15:51 BP 112 / 56 (auto/); ja5 15:51 Pulse 87 MON; Pulse Ox 98% ; ja5 16:06 BP 114 / 57 (auto/); ja5 16:06 Pulse 84 MON; Pulse Ox 98% ; ja5 16:21 BP 98 / 51 (auto/); ja5 16:21 Pulse 87 MON; Pulse Ox 89% ; ja5 16:36 BP 99 / 56 (auto/); ja5 16:37 Pulse 84 MON; Pulse Ox 94% ; ja5 17:01 BP 102 / 57; Pulse 88; Resp 14 S; Temp 97.5(TE); Pulse Ox 94% on 50% Venturi mask; Pain ja5 0/10; 10:35 Body Mass Index 26.95 (71.21 kg, 162.56 cm) ja5 MDM: 10:13 Tripe Cooker/Pulse Ox/q 30 min VS ordered. br1 10:13 IV Saline Lock ordered. br1 10:13 Rhythm Strip to chart ordered. br1 10:13 Undress patient appropriately for examination ordered. br1 10:13 Basic Metabolic Profile Ordered. EDMS 10:13 CBC with Diff Ordered. EDMS 10:13 Cardiac Injury Profile Ordered. EDMS 10:13 Troponin Ordered. EDMS 10:13 ECG WITH READING ER PHYS+CARDIAG ordered. EDMS 10:29 Oxygen at 15 Liters/Minute NRB Mask ordered. br1 10:29 -Blood Culture (Adults Only), peripheral from different site, or from device/port/PICC br1 etc. if present ordered. 10:29 Chest, 1 View Ordered. EDMS 10:29 BNP Ordered. EDMS 10:30 Acetaminophen Tablet 650 mg PO once ordered. br1 10:30 Call Respiratory ordered. br1 10:31 Lactic Acid (Baird tube on ice) Ordered. EDMS 10:31 -Arterial Blood Gas Ordered. EDMS 10:31 -Blood Culture Ordered. EDMS 10:31 Large bore IV x 2 ordered. br1 10:32 PT/INR Ordered. EDMS 10:32 PTT Ordered. EDMS 10:32 Urinalysis Ordered. EDMS 10:32 Urine Culture Ordered. EDMS 10:33 Call Respiratory complete. ar3 10:34 -Blood Culture (Adults Only), peripheral from different site, or from device/port/PICC ar3 etc. if present complete. 10:35 BLOOD CULTURES Ordered. EDMS 10:37 Cefepime 2 grams IVPB at 100 mL/hr once over 30 mins; dilute in 50mL of NS or D5W br1 ordered. 10:37 NS 0.9% (Sepsis- hypotension or lactate >4mmol/L, 30ml/kg) 30 ml/kg IV at bolus once; br1 Give in 500mL aliquots, assess for rales after each, inform provider ordered. 10:41 Financial registration complete. mpb 10:41 [facility] Payment Agreement was scanned into [employer] and attached to record. mpb 10:44 Chicas ordered. br1 11:08 BED REQUEST+ADM ordered. EDMS 11:22 LIVER PROFILE Ordered. EDMS 11:43 DIFFERENTIAL NO CHARGE Ordered. EDMS 11:43 PLATELET ESTIMATE Ordered. EDMS 12:03 Basic Metabolic Profile Reviewed. br1 12:03 CBC with Diff Reviewed. br1 12:03 BNP Reviewed. br1 12:03 Lactic Acid (Baird tube on ice) Reviewed. br1 12:03 -Arterial Blood Gas Reviewed. br1 12:03 PT/INR Reviewed. br1 12:03 LIVER PROFILE Reviewed. br1 12:03 Cardiac Injury Profile Reviewed. br1 12:03 Troponin Reviewed. br1 12:03 PTT Reviewed. br1 12:03 Urinalysis Reviewed. br1 12:03 PLATELET ESTIMATE Reviewed. br1 12:03 Chest, 1 View Reviewed. br1 13:08 Admission / Observation Status ordered. EDMS 13:09 NPO DIET ordered. EDMS 13:09 LACTIC ACID LEVEL, LACTATE Ordered. EDMS 13:19 CT Chest without contrast Ordered. EDMS 14:33 NS 0.9% 1000 ml IV at 100 mL/hr continuous ordered. jc4 14:35 MRSA SCREEN Ordered. EDMS 15:05 TROPONIN Ordered. EDMS 17:20 CT Head without contrast Ordered. EDMS 21:09 T-Sheet-- Draft Copy was scanned into [employer] and attached to record. klr 09/19 12:39 ECG/EKG was scanned into [employer] and attached to record. gb 12:39 Trend VS was scanned into [employer] and attached to record. gb Administered Medications: 09/18 10:56 Drug: NS 0.9% (Sepsis- hypotension or lactate >4mmol/L, 30ml/kg) 500 ml Route: IV; ja5 Rate: bolus; Site: left forearm; 12:16 Follow up: BP 76 / 41; Pulse 99 bpm; Resp 20 bpm; Pulse Ox 98% Mask: Non-rebreather jc4 mask; IV Intake: 500ml 14:16 Follow up: IV Intake: 500ml jc4 11:15 Drug: Acetaminophen 650 mg [acetaminophen 325 mg tablet (2 tabs)] Route: PO; ja5 13:49 Follow up: Temp 98.5 Oral; Response: Temperature is decreased ld5 12:44 Drug: Cefepime 2 grams [cefepime 2 gram solution for injection] Route: IVPB; Rate: 100 ja5 mL/hr; Infused Over: 30 mins; Site: left femoral; 14:33 Drug: NS 0.9% 1000 ml [sodium chloride 0.9 % intravenous solution] Route: IV; Rate: 100 jc4 mL/hr; Site: left antecubital; 17:05 Follow up: IV Status: Infusion continued upon admit; IV Intake: 200ml ja5 Signatures: Dispatcher [employer] EDMS Edwige Haines, Reg Reg gb Reymundo Bishop MD MD br1 Ninoska Arellano, INDUSTRIAL COFFEE GRINDER INDUSTRIAL COFFEE GRINDER ar3 Sandra Nash RN RN jc4 Nina CrawleyRN RN [facility] Hiram Mosqueda, Reg Reg mpb Radha Zaldivar klr Allison Baldwin RN RN ja5 Radha Milian RN ld5 The chart was reviewed and I authenticate all verbal orders and agree with the evaluation and treatment provided.Corrections: (The following items were deleted from the chart) 10:43 10:41 Straight cath ordered. br1 br1 11:22 10:32 LIVER PROFILE+LAB ordered. EDOH EDMS Attachments: 10:41 [facility] Payment Agreement mpb 21:09 T-Sheet-- Draft Copy r 09/19 12:39 ECG/EKG gb Chart Complete MTDD
[2016-09-20 22:00] VITALS: BP 150/77
[2016-09-21] MEDS: NS 1,000 ML IV SCH (03:05)
[2016-09-21 06:00] VITALS: BP 147/84
[2016-09-21] MEDS ORDERED: LevoFLOXacin 750 MG TABLET PO SCH (06:00)
[2016-09-21] MEDS ORDERED: LevoFLOXacin 500 MG TABLET PO SCH (06:00)
[2016-09-21 06:57] LABS: BASO % 0.8 % (0.0-1.0); EOS % 0.1 % (0.0-3.0); LARGE UNSTAINED CELL # 0.1 K/mm3 (0.0-0.4); LARGE UNSTAINED CELL % 1.2 % (0.0-4.0); LYMPH # 0.7 K/mm3 (1.5-4.5); LYMPH % 9.9 % (24.0-44.0); MEAN CORPUSCULAR HEMOGLOBIN 31.6 pg (27.0-33.0); MEAN CORPUSCULAR HGB CONC 32.4 g/dl (32.0-36.5); MONO # 0.2 K/mm3 (0.0-0.8); MONO % 2.8 % (0.0-5.0); NEUTROPHILS # 5.6 K/mm3 (1.8-7.7); NEUTROPHILS % 85.1 % (36.0-66.0); PLATELET COUNT, AUTOMATED 129 k/mm3 (150-450); RED CELL DISTRIBUTION WIDTH 15.2 % (11.5-14.5); WHITE BLOOD COUNT 6.6 K/mm3 (4.0-10.0)
[2016-09-21 07:05] LABS: MEAN CORPUSCULAR VOLUME 97.5 fl (80.0-96.0)
[2016-09-21 07:13] LABS: ALBUMIN/GLOBULIN RATIO 0.56 (1.00-1.93); ALKALINE PHOSPHATASE 80 U/L (45-117); ALT/SGPT 42 U/L (12-78); ANION GAP 9 MEQ/L (8-16); AST/SGOT 39 U/L (15-37); BILIRUBIN,TOTAL 0.6 MG/DL (0.2-1.0); BLOOD UREA NITROGEN 15 MG/DL (7-18); CALCIUM LEVEL 7.5 MG/DL (8.8-10.2); CARBON DIOXIDE LEVEL 19 MEQ/L (21-32); CHLORIDE LEVEL 110 MEQ/L (98-107); CREATININE FOR GFR 0.62 MG/DL (0.55-1.02); GLOMERULAR FILTRATION RATE > 60.0 (>32); GLUCOSE, FASTING 82 MG/DL (83-110); MAGNESIUM LEVEL 1.9 MG/DL (1.8-2.4); POTASSIUM SERUM 3.7 MEQ/L (3.5-5.1); SODIUM LEVEL 138 MEQ/L (136-145); TOTAL PROTEIN 5.6 GM/DL (6.4-8.2)
[2016-09-21] MEDS ORDERED: BACITAB3 PO (08:12)
[2016-09-21] MEDS ORDERED: LEVA500T PO (08:12)
[2016-09-21] MEDS: predniSONE 20 MG TAB PO SCH (08:36)
[2016-09-21] MEDS ORDERED: PENTAMIDINE ISETH NEB 300 MG SOLN VIAL INH ONE (11:00)
--- NOTE | 2016-09-21 14:14 | DSES ---
DATE OF ADMISSION: 09/18/2016 DATE OF DISCHARGE: 09/21/2016 CONSULTANTS: Infectious disease specialist, Dr. Michelle Leonardo. PRIMARY DISCHARGE DIAGNOSES: 1. Healthcare-associated pneumonia. 2. Sepsis secondary to healthcare-associated pneumonia with bilateral infiltrates. 3. Hypotension secondary to sepsis. 4. Acute kidney injury. 5. History of renal cell cancer with multiple lymph nodes and lungs. 6. Code status: DO NOT RESUSCITATE/DO NOT INTUBATE. DISCHARGE MEDICATIONS: - patient received a dose of pentamidine prior to discharge - lactobacillus one tablet twice a day - Levaquin 500 mg daily, #12 tablets - acetaminophen 500 as needed - Benadryl 25 as needed nightly - prednisone 10 mg daily Immediate followup with her medical oncologist and primary care physician as outpatient within a week of discharge. HOSPITAL COURSE: This is an 86-year-old female with history of left renal carcinoma, appendectomy, hysterectomy, with abdominal adhesions, chemotherapy port, complained of syncopal episode which was unwitnessed, cough for the past 3-4 days, admitted with a fever of 101.9. The patient was admitted for bilateral pneumonia, sepsis, on broad-spectrum antibiotics due to immunocompromised state and concern for pneumocystis pneumonia (PCP). The patient was started on meropenem, vancomycin, and Levaquin. Sputum culture was normal. Patient was originally on Ventimask and has been titrated to room air. Once sputum culture returned, vancomycin and meropenem were discontinued. Patient had acute kidney injury, current creatinine is normal. Blood cultures, urine, methicillin-resistant Staphylococcus aureus (MRSA) screen were all normal. Dr. Michelle Leonardo recommended a total of 12-14 days of antibiotics. She had an episode of low magnesium and potassium which were supplemented. She has chronic anemia which did not require blood transfusion. LABORATORY DATA ON DISCHARGE: White count 6.6, hemoglobin 10, hematocrit 31, platelet count 129. Sodium 138, potassium 3.7, chloride 110, bicarbonate 19, BUN 15, creatinine 0.62, glucose 82 , magnesium 1.9. Microbiology: Sputum culture 09/18/2016, no growth, normal davina. MRSA screen negative. Two sets of blood cultures negative. Urine culture is negative. CT of the chest 09/18/2016, no pleural effusion, bilateral infiltrates, normal sized mediastinal lymph nodes. CT of the head, age appropriate cerebellar and cerebral atrophy, no acute intracranial pathology, postsurgical changes. TIME SPENT ON DISCHARGE: 30 minutes. MTDD
[2016-09-23 00:09] LABS: ORGANISM ID Not indicated. (.); SPECIMEN SOURCE Urine (.)
== END 2016-09-21 12:12 | disposition home health service (06) | DRG 871 ==
LOC: M ED 09:58 → M ED INP 12:59 → M ICU 17:23 → M MSPAV 09-19 16:07
PROVIDERS: ADMIT Internal Medicine; ATTEND General Practice
DX: A41.9 Sepsis, unspecified organism (principal); J18.9 Pneumonia, unspecified organism; N17.9 Acute kidney failure, unspecified; C78.01 Secondary malignant neoplasm of right lung; C78.02 Secondary malignant neoplasm of left lung; C64.2 Malignant neoplasm of left kidney, except renal pelvis; C79.89 Secondary malignant neoplasm of other specified sites; Z66 Do not resuscitate; Z79.899 Other long term (current) drug therapy; Z88.0 Allergy status to penicillin; Z88.2 Allergy status to sulfonamides

== ENCOUNTER → 2016-09-28 | Outpatient (REF) | payer MEDICARE, BC ==
[~2016-09-28] MED LIST changes: +ACET50TAOT PO; +BACITAB3 PO; +BENA25CA4 PO; +LEVA500T PO; +PRED10TA PO
== END ==
LOC: M SFHCPLAZ 16:49
PROVIDERS: ATTEND Internal Medicine Infectious Disease
DX: L27.0 Generalized skin eruption due to drugs and medicaments taken internally (principal)
CPT/HCPCS: 87070; 87205; G0463

== ENCOUNTER → 2016-10-18 | Outpatient (REF) | payer MEDICARE, BC | LOC: M SFHCPLAZ 10:07 | PROVIDERS: ATTEND Internal Medicine | DX: E78.00 Pure hypercholesterolemia, unspecified (principal) ==

== ENCOUNTER → 2016-12-20 | Outpatient (CLI) | payer MEDICARE, BC ==
--- NOTE | 2016-12-20 16:40 | REP ---
Right lower extremity Duplex Doppler venous ultrasound: Real time compression and duplex Doppler interrogation of the right lower extremity deep venous system is performed. The right common femoral, superficial femoral and popliteal veins are fully compressible with transducer pressure and demonstrate normal spontaneous and phasic flow, without evidence of deep venous thrombosis. Impression: No evidence of deep venous thrombosis of the right lower extremity femoral popliteal venous system. Signed by Ochoa Baird MD 12/20/2016 04:31 P
== END ==
LOC: M RAD 15:50
PROVIDERS: ATTEND Internal Medicine
DX: M79.604 Pain in right leg (principal); M79.89 Other specified soft tissue disorders

== ENCOUNTER 2017-04-25 06:37 | Outpatient (CLI) | payer MEDICARE, BC ==
[~2017-04-25] VITALS: Ht 165.1 cm; Wt 57.2 kg
[~2017-04-25 06:37] MED LIST changes: +BACITAB PO; -BACITAB3 PO; +LEVA1TAB2 PO; -LEVA500T PO; -PRED10TA PO; +PRED10TA2 PO
[2017-04-25] MEDS ORDERED: LR 1,000 ML IV SCH (07:00)
[2017-04-25] MEDS ORDERED: LIDOCAINE 2% INJ 100 MG/5 ML SDV (FOR ANES.) As Ordered ONE (08:24)
[2017-04-25] MEDS ORDERED: PROPOFOL 200 MG/20 ML VIAL As Ordered ONE (08:24)
--- NOTE | 2017-04-25 08:53 | ROOR ---
Patient Name: Cheli Keys Procedure Date: 04/25/2017 8:06 AM Date of : 1930 Age: 86 Room: [facility] Gender: Female Note Status: Finalized Procedure: Colonoscopy Indications: Clinically significant diarrhea of unexplained origin Providers: Kevin Perales MD Referring MD: Jesus Shea MD Requesting Provider: Medicines: Monitored Anesthesia Care Complications: No immediate complications. Procedure: Pre-Anesthesia Assessment: - Prior to the procedure, a History and Physical was performed, and patient medications and allergies were reviewed. The patient is competent. The risks and benefits of the procedure and the sedation options and risks were discussed with the patient. All questions were answered and informed consent was obtained. Patient identification and proposed procedure were verified by the physician, the nurse and the anesthesiologist in the procedure room. Mental Status Examination: alert and oriented. Airway Examination: normal oropharyngeal airway and neck mobility. CV Examination: regular rate and rhythm. Prophylactic Antibiotics: The patient does not require prophylactic antibiotics. Prior Anticoagulants: The patient has taken no previous anticoagulant or antiplatelet agents. ASA Grade Assessment: II - A patient with mild systemic disease. After reviewing the risks and benefits, the patient was deemed in satisfactory condition to undergo the procedure. The anesthesia plan was to use monitored anesthesia care (MAC). Immediately prior to administration of medications, the patient was re-assessed for adequacy to receive sedatives. The heart rate, respiratory rate, oxygen saturations, blood pressure, adequacy of pulmonary ventilation, and response to care were monitored throughout the procedure. The physical status of the patient was re-assessed after the procedure. The Colonoscope was introduced through the anus and advanced to the cecum, identified by the ileocecal valve. The colonoscopy was performed without difficulty. The patient tolerated the procedure well. The quality of the bowel preparation was excellent. Findings: The perianal exam findings include non-thrombosed external hemorrhoids. The colon (entire examined portion) appeared normal. Multiple biopsies were obtained with cold forceps for histology randomly in the entire colon. Impression: - Non-thrombosed external hemorrhoids found on perianal exam. - The entire examined colon is normal. - Multiple biopsies were obtained in the entire colon. Recommendation: - Discharge patient to home. - Resume regular diet. - Continue present medications. - Await pathology results. - Telephone endoscopist for pathology results in 1 week. Kevin Perales MD 04/25/2017 8:52:43 AM Number of Addenda: 0 Note Initiated On: 04/25/2017 8:06 AM Estimated Blood Loss: Estimated blood loss was minimal.
[2017-04-25 09:00] VITALS: BP 112/62
== END 2017-04-25 09:20 | disposition home or self-care (01) ==
LOC: M OPP 06:37
PROVIDERS: ATTEND Surgery
DX: R19.7 Diarrhea, unspecified (principal); Z86.010 Personal history of colon polyps; K64.4 Residual hemorrhoidal skin tags; Z85.528 Personal history of other malignant neoplasm of kidney; Z92.3 Personal history of irradiation; Z92.21 Personal history of antineoplastic chemotherapy; Z87.312 Personal history of (healed) stress fracture; Z88.0 Allergy status to penicillin; Z88.2 Allergy status to sulfonamides

== ENCOUNTER → 2017-05-16 | Outpatient (REF) | payer MEDICARE, BC ==
[2017-05-16 12:23] LABS: CALCIUM OXALATE CRYSTALS MODERATE
== END ==
LOC: M SFHCPLAZ 09:19
PROVIDERS: ATTEND Internal Medicine
DX: R30.0 Dysuria (principal)

== ENCOUNTER → 2017-09-25 | Outpatient (REF) | payer MEDICARE, BC ==
[2017-09-25 12:22] LABS: HEMATOCRIT 36.6 % (36.0-47.0); HEMOGLOBIN 11.7 g/dl (12.0-16.0); MEAN CORPUSCULAR HEMOGLOBIN 29.8 pg (27.0-33.0); MEAN CORPUSCULAR VOLUME 93.4 fl (80.0-96.0); PLATELET COUNT, AUTOMATED 320 10^3/uL (150-450); RED BLOOD COUNT 3.92 10^6/uL (4.00-5.40); RED CELL DISTRIBUTION WIDTH 12.5 % (11.5-14.5); WHITE BLOOD COUNT 5.9 10^3/uL (4.0-10.0)
[2017-09-25 12:33] LABS: ALBUMIN 3.7 GM/DL (3.2-5.2); ALBUMIN/GLOBULIN RATIO 0.93 (1.00-1.93); ALKALINE PHOSPHATASE 73 U/L (45-117); ALT/SGPT 13 U/L (12-78); ANION GAP 7 MEQ/L (8-16); AST/SGOT 18 U/L (7-37); BILIRUBIN,TOTAL 0.6 MG/DL (0.2-1.0); BLOOD UREA NITROGEN 21 MG/DL (7-18); CALCIUM LEVEL 9.6 MG/DL (8.8-10.2); CARBON DIOXIDE LEVEL 30 MEQ/L (21-32); CHLORIDE LEVEL 102 MEQ/L (98-107); CHOLESTEROL LEVEL 191 MG/DL (<200); CHOLESTEROL RISK RATIO 3.293 (<5); CREATININE FOR GFR 0.99 MG/DL (0.55-1.30); GLOMERULAR FILTRATION RATE 56.6 (>32); GLUCOSE, FASTING 75 MG/DL (70-100); HDL CHOLESTEROL 58 MG/DL (>40); LDL CHOLESTEROL 117.6 MG/DL (<100); MAGNESIUM LEVEL 1.8 MG/DL (1.8-2.4); NON-HDL-C 133 MG/DL; SODIUM LEVEL 139 MEQ/L (136-145); TOTAL PROTEIN 7.7 GM/DL (6.4-8.2); TRIGLYCERIDES LEVEL 77 MG/DL (<150)
== END ==
LOC: M SFHCPLAZ 07:58
DX: C66.9 Malignant neoplasm of unspecified ureter (principal); I10 Essential (primary) hypertension; E78.00 Pure hypercholesterolemia, unspecified
CPT/HCPCS: 83735

== ENCOUNTER → 2018-02-07 | Outpatient (REF) | payer MEDICARE, BC ==
[2018-02-07 13:50] LABS: FREE T3 2.4 PG/ML (2.2-4.0); FREE T4 1.07 NG/DL (0.76-1.46)
== END ==
LOC: M SFHCPLAZ 11:47
DX: R19.5 Other fecal abnormalities (principal); R00.2 Palpitations
CPT/HCPCS: 84443

== ENCOUNTER → 2018-03-26 | Outpatient (REF) | payer MEDICARE, BC ==
[2018-03-26 20:01] LABS: APPEARANCE, URINE CLOUDY (CLEAR); BACTERIA, URINE AUTO 2+ (NEGATIVE); BILIRUBIN, URINE AUTO NEGATIVE (NEGATIVE); BLOOD, URINE BLOOD 3+ (NEGATIVE); COLOR, URINE YELLOW (YELLOW); GLUCOSE, URINE (UA) AUTO NEGATIVE (NEGATIVE); KETONE, URINE AUTO NEGATIVE (NEGATIVE); LEUKOCYTE ESTERASE, URINE AUTO 3+ (NEGATIVE); MUCUS, URINE SMALL (NEGATIVE); NITRITE, URINE AUTO NEGATIVE (NEGATIVE); PROTEIN, URINE AUTO 1+ mg/dL (NEGATIVE); RBC, URINE AUTO 158 /HPF (0-3); SPECIFIC GRAVITY URINE AUTO 1.012 (1.002-1.035); SQUAMOUS EPITHELIAL CELL UR AU 0 /HPF (0-6); UROBILINOGEN, URINE AUTO 0.2 mg/dL (0.0-2.0); WBC, URINE AUTO TNTC /HPF (0-3)
== END ==
LOC: M SFHCPLAZ 08:00
DX: R30.0 Dysuria (principal)
CPT/HCPCS: 81001

== ENCOUNTER → 2018-05-22 | Outpatient (REF) | payer MEDICARE, BC | LOC: M LAB REF 17:56 | DX: Z51.81 Encounter for therapeutic drug level monitoring (principal); Z79.899 Other long term (current) drug therapy; C79.51 Secondary malignant neoplasm of bone; C68.9 Malignant neoplasm of urinary organ, unspecified | CPT/HCPCS: 84443 ==

== ENCOUNTER → 2018-12-21 | Outpatient (REF) | payer MEDICARE, BC ==
[~2018-12-21] MED LIST changes: +ACET500T15 PO; -ACET50TAOT PO; +CIPR250T3 PO; -MIRA255PW PO; +MULTCAP PO; +OXYC1TAB23 PO; -PERCOCET PO; +POLY1POW4 PO; +SYNT50TA PO
[2018-12-21 14:32] LABS: APPEARANCE, URINE HAZY (CLEAR); BACTERIA, URINE AUTO NEGATIVE (NEGATIVE); BILIRUBIN, URINE AUTO NEGATIVE (NEGATIVE); BLOOD, URINE BLOOD 1+ (NEGATIVE); COLOR, URINE YELLOW (YELLOW); GLUCOSE, URINE (UA) AUTO NEGATIVE (NEGATIVE); KETONE, URINE AUTO NEGATIVE (NEGATIVE); LEUKOCYTE ESTERASE, URINE AUTO 3+ (NEGATIVE); MUCUS, URINE SMALL (NEGATIVE); NITRITE, URINE AUTO NEGATIVE (NEGATIVE); PROTEIN, URINE AUTO NEGATIVE (NEGATIVE); RBC, URINE AUTO 7 /HPF (0-3); SPECIFIC GRAVITY URINE AUTO 1.014 (1.002-1.035); SQUAMOUS EPITHELIAL CELL UR AU 0 /HPF (0-6); TRANSITIONAL EPITHELIAL AUTO <1 /HPF; UROBILINOGEN, URINE AUTO 0.2 mg/dL (0.0-2.0); WBC, URINE AUTO TNTC /HPF (0-3)
== END ==
LOC: M SFHCPLAZ 13:11
PROVIDERS: ATTEND Internal Medicine
DX: R30.0 Dysuria (principal)

== ENCOUNTER → 2019-02-04 | Outpatient (REF) | payer MEDICARE, BC ==
[2019-02-04 10:28] LABS: CHOLESTEROL RISK RATIO 3.555 (<5)
== END ==
LOC: M SFHCPLAZ 08:06
PROVIDERS: ATTEND Internal Medicine
DX: E78.00 Pure hypercholesterolemia, unspecified (principal)

== ENCOUNTER → 2019-07-09 | Outpatient (REF) | payer MEDICARE, BC ==
[~2019-07-09] MED LIST changes: +LEVO-86 PO; +LEVO50TA5 PO; +SLOWTAB2 PO
[2019-07-09 18:01] LABS: AMORPHOUS SEDIMENT LARGE (NEGATIVE); APPEARANCE, URINE TURBID (CLEAR); BACTERIA, URINE AUTO NEGATIVE (NEGATIVE); BILIRUBIN, URINE AUTO NEGATIVE (NEGATIVE); BLOOD, URINE BLOOD NEGATIVE (NEGATIVE); COLOR, URINE AMBER (YELLOW); GLUCOSE, URINE (UA) AUTO NEGATIVE (NEGATIVE); KETONE, URINE AUTO NEGATIVE (NEGATIVE); LEUKOCYTE ESTERASE, URINE AUTO NEGATIVE (NEGATIVE); NITRITE, URINE AUTO NEGATIVE (NEGATIVE); PROTEIN, URINE AUTO NEGATIVE (NEGATIVE); RBC, URINE AUTO 0 /HPF (0-3); SPECIFIC GRAVITY URINE AUTO 1.024 (1.002-1.035); SQUAMOUS EPITHELIAL CELL UR AU 0 /HPF (0-6); UROBILINOGEN, URINE AUTO 0.2 mg/dL (0.0-2.0); WBC, URINE AUTO 1 /HPF (0-3)
== END ==
LOC: M SMT 16:55
PROVIDERS: ATTEND Nurse Practitioner Women's Health
DX: R39.15 Urgency of urination (principal)
CPT/HCPCS: 81001; 87086; G0463

== ENCOUNTER → 2020-01-27 | Outpatient (CLI) | payer MEDICARE, BC ==
--- NOTE | 2020-01-27 14:05 | REP ---
REASON: Pain and swelling. TECHNIQUE: Multiple ultrasonographic images of the deep venous structures of the thigh were obtained from the common femoral vein to the popliteal vein along with Doppler interrogation and color flow Doppler images. FINDINGS: There is no abnormal echogenic material seen within any of the visualized deep venous structures that would suggest acute thrombosis. Coaptation is unremarkable throughout. Doppler interrogation shows an expected response to respiratory variability and augmentation. The color flow images show what appears to be a normal vascular pattern throughout. IMPRESSION: There is no ultrasonographic evidence of deep venous thrombosis involving any of the visualized deep venous structures of the left thigh, as described above. Electronically Signed by Akshat Nieves DO 01/27/2020 05:12 P
== END ==
LOC: M RAD 12:02
PROVIDERS: ATTEND Internal Medicine Medical Oncology
DX: R22.41 Localized swelling, mass and lump, right lower limb (principal); M79.604 Pain in right leg

== ENCOUNTER → 2020-02-12 | Outpatient (CLI) | payer MEDICARE, BC ==
[~2020-02-12] MED LIST changes: +ISOVUE-370 76% 100ML VIAL As Ordered ONE; +VALS40TA9 PO
--- NOTE | 2020-02-12 13:52 | REP ---
CT CHEST WITH IV CONTRAST: HISTORY: Surveillance scan history of bladder cancer. Oligometastatic. Comparison CT study of the chest is from September 24, 2019. CT CONTRAST DOSE: 100 mL of intravenous Isovue 370. CT FINDINGS: There is a right-sided Cipkhi-H-Sonj catheter in the superior vena cava. There is good opacification of the pulmonary arterial tree and the thoracic aorta. There is no evidence of pulmonary embolus, aortic aneurysm, or dissection. No hilar or mediastinal mass or adenopathy is observed. No axillary adenopathy or mass lesion is observed. No thyroid or supraclavicular mass lesion is seen. There is no evidence of pleural or pericardial effusion. No adrenal lesion is seen. There is a 1.1 cm low density area in the right lobe of the liver consistent with a hemangioma. This is unchanged. The visualized upper abdominal structures are otherwise unremarkable. No bony destructive lesion is appreciated. There are degenerative spondylosis changes in the thoracic spine. There is a stable area of pleural thickening posteriorly on each side mild in degree. These are unchanged. There is a 3 mm pulmonary nodule in the left lower lobe peripherally on page 79 of 108 in series 2 of 4 of today's study which is unchanged as well. There is a fissural nodular density 4 mm in diameter in the right lower lobe on page 49 of 108 also unchanged. There is an adjacent perifissural nodule in the major fissure on the right as well also unchanged. No new pulmonary nodule is seen. IMPRESSION: No active cardiopulmonary disease seen. No evidence of intrathoracic recurrence. Electronically Signed by Dvaid Ayala MD 02/12/2020 05:14 P
--- NOTE | 2020-02-12 14:02 | REP ---
REASON: History of carcinoma of the urinary bladder. All priors have been reviewed, most of the priors are from an outside institution. CONTRAST: 100 mL Isovue-370. For description of the lung bases, see CT chest report made same day. Once again, there is a small lesion in the posterior segment of the right lobe of the liver seen to be a benign hepatic hemangioma on prior exams. Peripheral nodular enhancement persists. There are no new hepatic lesions. The gallbladder, spleen, pancreas, adrenal glands, and kidneys are unchanged. There is left renal scarring, status quo. The abdominal aorta and para-aortic regions are unchanged. The intra-abdominal and intrapelvic bowel loops and their mesenteries are essentially unchanged and again seen to be within normal limits. No free fluid or free air is seen in the abdomen or pelvis. No intra-abdominal or intrapelvic mass or adenopathy has developed. Bone window technique throughout the examination shows chronic spinal, hip, and sacroiliac joint degenerative changes, which have been stable for years. IMPRESSION: No significant change from prior exams. Findings as described above. There is no evidence of acute intra-abdominal or intrapelvic disease. Electronically Signed by Akshat Nieves DO 02/12/2020 05:03 P
== END ==
LOC: M RAD 08:25
PROVIDERS: ATTEND Internal Medicine Medical Oncology
DX: C67.9 Malignant neoplasm of bladder, unspecified (principal)
CPT/HCPCS: 71260; 74177; Q9967

== ENCOUNTER 2020-04-15 11:50 | Emergency (ER) | payer MEDICARE, BC ==
[~2020-04-15] VITALS: Ht 165.1 cm; Wt 52.7 kg
[~2020-04-15 11:50] MED LIST changes: -ISOVUE-370 76% 100ML VIAL As Ordered ONE; -VALS40TA9 PO
[2020-04-15 12:44] LABS: BASO % 0.4 % (0.0-1.0); HEMATOCRIT 36.9 % (36.0-47.0); HEMOGLOBIN 12.1 g/dl (12.0-15.5); LYMPH # 0.9 10^3/uL (1.5-5.0); LYMPH % 16.7 % (24.0-44.0); MEAN CORPUSCULAR HEMOGLOBIN 31.3 pg (27.0-33.0); MEAN CORPUSCULAR HGB CONC 32.8 g/dl (32.0-36.5); MEAN CORPUSCULAR VOLUME 95.3 fl (80.0-96.0); MONO # 0.4 10^3/uL (0.0-0.8); MONO % 7.8 % (0.0-5.0); NEUTROPHILS # 3.9 10^3/uL (1.5-8.5); NEUTROPHILS % 74.7 % (36.0-66.0); PLATELET COUNT, AUTOMATED 311 10^3/uL (150-450); RED BLOOD COUNT 3.87 10^6/uL (4.00-5.40); WHITE BLOOD COUNT 5.2 10^3/uL (4.0-10.0)
[2020-04-15 13:23] LABS: ALBUMIN 3.4 GM/DL (3.2-5.2); ALT/SGPT 20 U/L (12-78); BILIRUBIN,DIRECT 0.1 MG/DL (0.0-0.2); BILIRUBIN,TOTAL 0.5 MG/DL (0.2-1.0); BLOOD UREA NITROGEN 19 MG/DL (7-18); CALCIUM LEVEL 9.3 MG/DL (8.8-10.2); CARBON DIOXIDE LEVEL 29 MEQ/L (21-32); CHLORIDE LEVEL 107 MEQ/L (98-107); CK-MB VALUE MASS 1.9 NG/ML (<3.6); CPK CREATINE PHOSPHOKINASE 87 U/L (26-192); CREATININE FOR GFR 0.98 MG/DL (0.55-1.30); GLUCOSE, FASTING 87 MG/DL (70-100); MB/CK RELATIVE INDEX 2.18 (< OR =4); NT-PRO BNP 314 PG/ML (<450); POTASSIUM SERUM 4.2 MEQ/L (3.5-5.1); SODIUM LEVEL 141 MEQ/L (136-145); TOTAL PROTEIN 7.2 GM/DL (6.4-8.2); TROPONIN I < 0.02 NG/ML (< 0.10)
--- NOTE | 2020-04-15 13:25 | REPVR ---
PROCEDURE INFORMATION: Exam: XR Chest, 1 View Exam date and time: 04/15/2020 1:05 PM Age: 89 years old Clinical indication: Shortness of breath. History of bladder cancer. TECHNIQUE: Imaging protocol: XR of the chest Views: 1 view. COMPARISON: 1. CT - Chest with contrast 02/12/2020 9:26 AM 2. CR - Chest, 1 view 09/18/2016 10:37:14 AM FINDINGS: Tubes, catheters and devices: ECG leads/contacts overlie and partially obscure the anatomy. Right chest ported venous catheter is present with its catheter tip terminating at the superior vena cava. Lungs: No pulmonary consolidation or edema. Bilateral pulmonary hyperinflation is redemonstrated. Pleural space: No pleural effusion. No pneumothorax. Heart/Mediastinum: Heart size is within normal limits. Vasculature: Aortic atherosclerotic calcification. Diaphragm: Very small shallow left lateral diaphragmatic hernia containing a very small portion of the colonic splenic flexure appears unchanged compared to 02/12/2020. Bones/joints: No acute osseous abnormality. IMPRESSION: Bilateral pulmonary hyperinflation. Electronically signed by: Gal Rowland On 04/15/2020 13:25:51 PM
[2020-04-15 13:53] LABS: FREE T4 0.99 NG/DL (0.76-1.46)
[2020-04-15 15:00] VITALS: BP 169/80
[2020-04-22] MEDS ORDERED: VALS40TA9 PO (10:43)
--- NOTE | 2020-05-08 08:53 | ECGEPIP ---
[facility] - ED Test Date: 2020-04-15 Pat Name: KOSTA JOLLY Department: Room: - Gender: Female Real Estate Associate: : 1930 Requested By: Feliciano Wagoner Order Number: [id number] Reading MD: Ashley Rico Measurements Intervals [place] Rate: 62 P: 55 CT: 130 QRS: -3 QRSD: 91 T: 51 QT: 409 QTc: 418 Interpretive Statements SINUS RHYTHM NORMAL ECG SEE SCANNED DOWNTIME REPORT
[2020-07-06] MEDS ORDERED: LEVO50TA5 PO (11:49)
== END 2020-04-15 15:24 | disposition home or self-care (01) ==
LOC: M ED 11:50
DX: I10 Essential (primary) hypertension (principal); R91.8 Other nonspecific abnormal finding of lung field; C65.2 Malignant neoplasm of left renal pelvis; C66.9 Malignant neoplasm of unspecified ureter; Z88.0 Allergy status to penicillin; Z88.2 Allergy status to sulfonamides; Z79.899 Other long term (current) drug therapy

== ENCOUNTER → 2020-04-20 | Outpatient (REF) | payer MEDICARE, BC ==
[~2020-04-20] MED LIST changes: +VALS40TA9 PO
== END ==
LOC: M LAB REF 15:30
PROVIDERS: ATTEND Surgery
DX: C44.729 Squamous cell carcinoma of skin of left lower limb, including hip (principal)

== ENCOUNTER → 2020-05-21 | Outpatient (CLI) | payer MEDICARE, BC ==
[~2020-05-21] MED LIST changes: +GASTROGRAFIN SOLUTION 30ML (Q9963) As Ordered ONE; +ISOVUE-370 76% 100ML VIAL As Ordered ONE
--- NOTE | 2020-05-29 07:45 | REP ---
CT ABDOMEN AND PELVIS WITH INTRAVENOUS (IV) AND ORAL CONTRAST HISTORY: Metastatic urothelial carcinoma. COMPARISON: CT study 02/12/2020. CT CONTRAST DOSE: 100 mL of intravenous Isovue-370. CT FINDINGS: There is a stable 1.1 cm hemangioma on the posterior segment of the right lobe of the liver. No new liver lesion is seen. The spleen is homogeneous in texture and unremarkable in size. No abnormality is noted in the pancreas. No adrenal lesion is seen on either side. There is some focal scarring of the left kidney without evidence of mass effect. This is unchanged. No retroperitoneal mass or adenopathy is observed. Normal caliber aorta is seen. Small and large intestinal bowel loops are unremarkable in the abdomen and pelvis. The uterus is surgically absent. No abdominal wall defect is seen. No abnormality noted in the gallbladder. Bone window settings show diffuse sclerotic changes at the site of the known metastasis at L4. This is unchanged from comparison study. No new bony destructive lesion is appreciated. IMPRESSION: Stable CT findings. No acute abdominal or pelvic disease. Stable changes at the known metastasis at L4. MTDD
--- NOTE | 2020-05-29 07:46 | REP ---
CT CHEST WITH INTRAVENOUS (IV) CONTRAST HISTORY: Metastatic urothelial carcinoma. COMPARISON: CT study chest 02/12/2020. CT CONTRAST DOSE: 100 mL of intravenous Isovue-[address] FINDINGS: The lungs are symmetrically aerated. No new pulmonary nodule is seen. Mild biapical pleural parenchymal scarring is seen. There is a stable pleural-based 3-4 mm nodule in the left lower lobe on Page 75 of 108 in Series 204 of todays study. There are scattered areas of fissural thickening and pleural thickening bilaterally, which are also unchanged. No mass lesion or new pulmonary nodule is appreciated. Lung dang are otherwise clear. No bony destructive lesion is appreciated. No hilar or mediastinal mass or adenopathy is observed. No pleural or pericardial effusion is seen. There is a right-sided Infusaport catheter. No extrathoracic mass or adenopathy is seen. IMPRESSION: No active cardiopulmonary disease. Stable CT findings. MTDD
== END ==
LOC: M RAD 13:08
PROVIDERS: ATTEND Internal Medicine Medical Oncology
DX: C68.0 Malignant neoplasm of urethra (principal); R91.8 Other nonspecific abnormal finding of lung field
CPT/HCPCS: 71260; 74177; Q9963; Q9967

== ENCOUNTER → 2020-08-22 | Outpatient (CLI) | payer MEDICARE, BC ==
[~2020-08-22] MED LIST changes: -GASTROGRAFIN SOLUTION 30ML (Q9963) As Ordered ONE; -ISOVUE-370 76% 100ML VIAL As Ordered ONE
[2020-08-22 12:22] LABS: APPEARANCE, URINE HAZY (CLEAR); BACTERIA, URINE AUTO 1+ (NEGATIVE); BILIRUBIN, URINE AUTO NEGATIVE (NEGATIVE); BLOOD, URINE BLOOD 1+ (NEGATIVE); COLOR, URINE YELLOW (YELLOW); GLUCOSE, URINE (UA) AUTO NEGATIVE (NEGATIVE); KETONE, URINE AUTO NEGATIVE (NEGATIVE); LEUKOCYTE ESTERASE, URINE AUTO 2+ (NEGATIVE); MUCUS, URINE SMALL (NEGATIVE); NITRITE, URINE AUTO NEGATIVE (NEGATIVE); PROTEIN, URINE AUTO NEGATIVE (NEGATIVE); RBC, URINE AUTO 6 /HPF (0-3); SPECIFIC GRAVITY URINE AUTO 1.008 (1.002-1.035); SQUAMOUS EPITHELIAL CELL UR AU 0 /HPF (0-6); UROBILINOGEN, URINE AUTO 0.2 mg/dL (0.0-2.0); WBC, URINE AUTO 48 /HPF (0-3)
== END ==
LOC: M LAB 11:36
PROVIDERS: ATTEND Family Medicine
DX: R35.0 Frequency of micturition (principal)

== ENCOUNTER → 2020-08-22 | Outpatient (REF) | payer MEDICARE, BC | LOC: M SFHCPLAZ 11:04 | PROVIDERS: ATTEND Family Medicine | DX: R35.0 Frequency of micturition (principal) ==

== ENCOUNTER → 2020-09-03 | Outpatient (REF) | payer MEDICARE, BC ==
[2020-09-03 11:17] LABS: CHOLESTEROL RISK RATIO 3.079 (<5)
== END ==
LOC: M PLALAB 08:44
PROVIDERS: ATTEND Internal Medicine
DX: E78.00 Pure hypercholesterolemia, unspecified (principal)

== ENCOUNTER → 2020-09-08 | Outpatient (CLI) | payer MEDICARE, BC | LOC: M LAB 14:40 | PROVIDERS: ATTEND Internal Medicine Gastroenterology | DX: R19.7 Diarrhea, unspecified (principal) ==

== ENCOUNTER → 2020-09-09 | Outpatient (REF) | payer MEDICARE, BC | LOC: M LAB REF 13:55 | PROVIDERS: ATTEND Internal Medicine Gastroenterology | DX: R19.7 Diarrhea, unspecified (principal) ==

== ENCOUNTER → 2020-09-28 | Outpatient (CLI) | payer MEDICARE, BC ==
[2020-09-28 12:28] LABS: FREE T4 1.09 NG/DL (0.76-1.46); THYROID STIMULATING HORMONE 1.27 uIU/ML (0.358-3.740)
== END ==
LOC: M LAB 11:17
PROVIDERS: ATTEND Internal Medicine Gastroenterology
DX: R19.7 Diarrhea, unspecified (principal)

== ENCOUNTER 2020-10-22 08:51 | Emergency (ER) | payer MEDICARE, BC ==
[~2020-10-22] VITALS: Ht 162.6 cm; Wt 51.7 kg
[2020-10-22] MEDS ORDERED: VALS1TAB67 PO (09:00)
[2020-10-22] MEDS ORDERED: BUDE3CAP (09:00)
--- OUTSIDE RECORDS SUMMARY | 2020-10-22 09:00 | CCD | Continuity of Care Document ---
Author Author Cheli CONCEPCION MD Organization Unknown Address [address] [place] [address] Phone [phone] Care Team Providers Care Confidential Investigator Name Role Phone Ev Godfrey N.P. AUTM [phone] Briana Ruano M.D. AUTM [phone] AUTM Unavailable Problems Active Problems Provider Date History of polyp of colon STEVE Mayers Onset: 017 Social History Type Date Description Comments Sex Unknown ETOH Use 2-3 A Week Recreational Drug Use Denies Drug Use Tobacco Use Start: Unknown Denies Smoking Allergies, Adverse Reactions, Alerts Active Allergies Reaction Severity Comments Date Penicillin Rash 07/04/2016 Sulfa Hepatitis 07/04/2016 Medications Active Medications SIG Qnty Indications Ordering Provide r Date Levothyroxine Sodium 50mcg Tablets 1 by mouth every day Unknown Valsartan 80mg Tablets 1 tab by mouth at bedtime Unknown Immunizations Description No Information Available Vital Signs Date Vital Result Comment 09/08/2020 1:25pm BP Systolic 190 mmHg BP Diastolic 90 mmHg Height 65 inches 5'5" Weight 119.00 lb BMI (Body Mass Index) 19.8 kg/m2 [place] Body Weight 125 lb Weight 53.978 kg BSA (Body Surface Area) 1.59 m2 05/06/2020 1:02pm BP Systolic 130 mmHg BP Diastolic 80 mmHg Height 65 inches 5'5" Weight 115.25 lb BMI (Body Mass Index) 19.2 kg/m2 [place] Body Weight 125 lb Weight 52.277 kg BSA (Body Surface Area) 1.57 m2 Results Test Acquired Date Facility Test Result H/L Range Note Laboratory test finding 04/20/2020 [facility] Main Lab [address] [place] [address] [phone] Pathology Request For Service (SEE NOTE) 1 1 FINAL DIAGNOSIS Skin, left lower leg, excision: 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 Margins are negative. 04/22/2020 - 1208 CLINICAL DIAGNOSIS Keratoacanthoma left lower leg 04/21/2020 - 1520 GROSS DIAGNOSIS Received in formalin labeled "left lower leg lesion" measures 3.5 x 1.5 x 0.3 cm. The center of the specimen contains a scar-like lesion measuring 2.1 x 1.5 cm, grossly present at the edge of three of the specimens, unoriented. It is serially sectioned and entirely submitted as follows; (A1) tips, (A2-A3) remainder of the specimen, serially sectioned from one end to the other. -SV 04/21/2020 - 1520 Signed MARY FUENTES MD 04/22/2020 1212 Procedures Date Code Description Status 04/20/2020 21187 Excise Benign Lesion 1.1-2CM Sca lp/Neck/Hands/Feet/Genitalia Completed Medical Devices Description No Information Available Encounters Type Date Location Provider Dx Diagnosis Office Visit 09/08/2020 1:45p [facility] Trevon Concepcion MD R19.7 Diarrhea, unspecified K52.839 Microscopic colitis, unspeci fied Office Visit 05/06/2020 1:00p [facility] Robbie crews NP D48.5 Neoplasm of uncertain behavior of skin Z48.02 Encounter for removal of sut ures Assessments Date Code Description Provider 09/08/2020 R19.7 Diarrhea, unspecified Trevon langley MD 09/08/2020 K52.839 Microscopic colitis, unspecified Trevon Concepcion MD 05/06/2020 D48.5 Neoplasm of uncertain behavior o f skin Robbie Joel NP 05/06/2020 Z48.02 Encounter for removal of sutures Robbie Joel NP 04/20/2020 D48.5 Neoplasm of uncertain behavior o f skin Kevin Perales M.D. Plan of Treatment 09/08/2020 - Trevon Concepcion MD* R19.7 Diarrhea, unspecified * K52.839 Microscopic colitis, unspecified * * New Labs:* Tissue Transglutaminase Iga, Ordered: 09/08/20 * Immunoglobulin A, Ordered: 09/08/20 * Gastrointestinal (GI) Panel, Ordered: 09/08/20 * Pancreatic Elastase Stool Sendout, Ordered: 09/08/20 * Calprotectin Stool Sendout, Ordered: 09/08/20 * Comments:* she has had several colonoscopies in past, and given her age, I am not excited about repeating her colonoscopy. She has had random biopsies done in 2017 suggesting Microscopic collitis.(Imodium is ineffective and colestipol caused bloating, and was also ineffective. * Follow up:* 2 weeks * Recommendations:* 1) Stool testing, celiac testing, lactose avoidance for 5 days. 2) If stool negative, then will start her on Budesonide for MC. (If not effective, then will do colonoscopy) Functional Status Description No Information Available Mental Status Description No Information Available Referrals Refer to Reason for Referral Status Appt Date Trevon Concepcion MD chronic diarrhea Scheduled 09/08/2020 [facility], Gastroenterology [address] [facility], [address] [place] [address] [phone]
--- OUTSIDE RECORDS SUMMARY | 2020-10-22 09:00 | CCD ---
Author Author [facility] Organization [facility] Address Unknown Phone Unavailable Care Team Providers Care Bleaching Machine Operator Name Role Phone Jesus Shea Unavailable PROBLEMS Type Condition ICD9-CM Code PIM01-NC Code Onset Dates Condition S tatus SNOMED Code Notes Problem Do not resuscitate Z66 Active 308095549 Problem Hypertension I10 Active 93298504 On losarta n again since March 2020. She no longer takes Lasix. She had been on Diovan low dose in the past; she was on Diovan HCT in the past, but this had been discontinued due to controlled BP's with her chemotherapy. She restarted it as of early 06/2013 at 1/2 pill po daily, and subsequently stopped it until her March 2020 emergency department visit. FELICIA inhibitor cough in 2005. Has no endorgan complications. BP control today is suboptimal and I increased her valsartan from 40 up to 80 mg daily on 09/07/2020. She will report some blood pressures in a week. Problem Palpitations R00.2 Active 09451827 On no medi cation with very rare brief palpitations. We'll follow this clinically since even p.r.n. therapy would not take effect until these palpitations have spontaneously resolved anyway. 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 She can always be referred to an measuring machine tender if this becomes more problematic. Problem Hypercholesterolemia E78.00 Active 90494566 Mark judy was advised to exercise regularly and follow a low-fat diet. Has an extremely favorable HDL. Her last lipid panel was done in August 2020 and was acceptable for primary prevention. Problem Peripheral sensory neuropathy G62.9 Active 95 491204 She has minimal symptoms of LE neuropathy at present. She had started gabapentin in November 2016 but her symptoms have resolved and she has been off gabapentin since Summer 2016. Problem Loose stools R19.5 Active 514576308 She has h ad loose stools for some time. A colonoscopy was done in March 2017 and demonstrated findings suggestive but not diagnostic of microscopic colitis. Fiber supplementation has not been helpful. Budesonide was prescribed as of 09/2017, and it was quite expensive and apparently of no benefit. We discussed lactose intolerance and its treatment in January 2018 but she feels she is not lactose intolerant. Yogurt has not helped. She has also tried Kefir. Colestipol tried in 04/2020 with no benefit. She is seeing the cat tender on 09/08/2020. Problem Acquired hypothyroidism E03.9 Active 19002133 2 She had a TSH level of 98 in July 2018 and was started on levothyroxine therapy by her oncologist. I assume this might relate to her Keytruda therapy? Her TSH was suppressed in late May 2019 at which time her dose was reduced from 75-50 mcg daily. She most recently had a TSH in March 2020 which was 3.11 on 50 mcg of levothyroxine daily. 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 She also had lumbar spine radiation therapy in May to June 2012. 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 She received radiation to the L3 lesion and subsequently was treated with cisplatin and Taxol therapy until mid December 2013. On a PET scan in 07/2014 she had progressive disease and was started on Keytruda in 11/2014 approximately. She had done well with ongoing therapy every 3 weeks until she developed a rash with that therapy in late 2015. She was placed on steroids transiently for the rash and until Spring 2017 had not had any further therapy since at least June 2016. She had been on XGeva for skeletal disease; apparently no longer. Most recent [place] oncology visit included CT scans of her chest, abdomen and pelvis and there was no measurable disease in January 2020. She was started back on Keytruda therapy in Spring 2017 but has been off it for quite some time now. Problem Melanocytic nevi of trunk D22.5 Active 820480 002 Problem History of recurrent urinary tract infection Z87.4 40 Active 919030868 She was treated by a urologist in past. She was prescribed suppressive therapy. She is currently off suppressive therapy, but had some recurrences in the Summer of 2016 and again most recently in July 2020. I have in the past given her a prescription for Macrodantin to take for 3 days at a time, should she have recurrent symptoms. Her urine infection in July 2020 was resistant to nitrofurantoin and she was placed on a short course of Levaquin at that time. 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 Active 799825131 Problem Lentigines L81.4 Active 235513245 Problem Melanocytic nevi of left lower limb, including hip D22.72 Active 377821013 ALLERGIES Allergen (clinical drug ingredient) Drug/Non Drug Allergy do cumented on EMR Reaction Allergy Type Onset Date Status Sulfa (for allergy use only) hepatitis Drug Allergy Active Penicillin (For Allergies Use Only) rash Drug Allerg y Active Motrin edema Drug Allergy Active ciprofloxacin Cipro([facility] Code:[address]-07) rash 9 (based on pictures appears like fixed drug eruption) Drug Allergy Active ENCOUNTERS from 1931 to 2020-09-21 Encounter Location Date Provider Diagnosis [address] [address] Aug, Jesus [facility] I10 IMMUNIZATIONS Vaccine Route Administration Date Status Influenza (High Dose 65 & up) IM Intramuscular May 29, 2017 A dministered Influenza (High Dose 65 & up) Unknown Sep 28, 2016 Ot hers Influenza (Pharmacy Given) Unknown Jun 09, 2020 Admin istered Influenza (High Dose 65 & up) Unknown Jun 06, 2018 Ad ministered Zoster 0.65mL (Zostavax) Unknown January 16, 2012 Adminis tered Pneumococcal Adult 0.5mL (Pneumovax 23) Unknown February 15, 1998 Administered TDAP 0.5mL (Boostrix) IM Intramuscular Aug 24, 2016 Administe red Pneumococcal 0.5mL (Prevnar 13) IM Intramuscular February 05, 2016 Administered SOCIAL HISTORY Tobacco Use: Social History Observation Description Date Details (start date - stop date) Never Smoker Sex Assigned At : Social History Observation Description Sex Assigned At Unknown Audit Question Answer Notes Total Score: 0 Interpretation: Alcohol Education Domestic Violence: Question Answer Notes Status: Sexual Hx: Question Answer Notes Had sex in the last 12 months (vaginal, oral, or anal)? No Have you ever had an STD? No Drug and Alcohol Question Answer Notes Total Score: 0 Interpretation: No problems reported Alcohol Screening: Question Answer Notes Did you have a drink containing alcohol in the past year? No Points 0 Interpretation Negative Tobacco Use: Question Answer Notes Are you a: never smoker REASON FOR REFERRAL No Information VITAL SIGNS No information MEDICATIONS Medication SIG (Take, Route, Frequency, Duration) Notes Start Da te End Date Status Benadryl 25 MG 1 tablet Orally Once a night at bedtime as needed fo r sleep Active Magnesium 250 MG 1 tablet with a meal Orally Daily Active Levothyroxine Sodium 50 MCG 1 tablet on an empty stoma ch in the morning Orally Daily for 90 days Active Diovan 160 MG 1 tablet Orally Once a day for 90 days Active PROCEDURES No Information RESULTS No Results REASON FOR VISIT Increase diovan MEDICAL (GENERAL) HISTORY Type Description Date Medical History Peripheral sensory neuropathy Medical History Hypertension Medical History Hypercholesterolemia Medical History Palpitations Medical History History of recurrent urinary tract infec tion Medical History Malignant neoplasm of ureter Medical History Loose stools Medical History Do not resuscitate Medical History kidney cancer Surgical History appendectomy 1944 Surgical History hysterectomy 1969 Surgical History repair of brain AV fistula 1975 Surgical History release of bowel adhesions Surgical History bilateral blepharoplasty 12/2002 Surgical History colonoscopy 02/2010 Surgical History right eye cataract extraction 05/2011 Surgical History left eye cataract extraction 11/2011 Surgical History Colonoscopy 03/2017 Hospitalization History pnuemonia 08/2016 Goals Section No Information Health Concerns No Information MEDICAL EQUIPMENT No Information MENTAL STATUS No Information FUNCTIONAL STATUS No Information ASSESSMENTS Encounter Date Diagnosis Assessment Notes Treatment Notes Treatm ent Clinical Notes Aug, Hypertension (ICD-10 - I10) PLAN OF TREATMENT Medication Medication Name Sig Start Date Stop Date Diovan 160 MG 1 tablet Orally Once a day for 90 days Levothyroxine Sodium 50 MCG 1 tablet on an empty stoma ch in the morning Orally Daily for 90 days Next Appt Details Provider Name:Jesus Shea, 2020-12-09 10 :00:00 AM, [address] [place], [address], Insurance Providers Payer Name Payer Address Payer Phone Insured Name Patient Relati onship to Insured Coverage Start Date Coverage End Date MEDICARE Part A and B [facility] [address] [facility] [phone] KOSTA JOLLY BCBS [facility] PPO [id number] [facility] [id number] KOSTA JOLLY self
--- OUTSIDE RECORDS SUMMARY | 2020-10-22 09:00 | CCD ---
Author Author [facility] Organization [facility] Address Unknown Phone Unavailable Care Team Providers Care Header Operator Name Role Phone Jesus Shea Unavailable PROBLEMS Type Condition ICD9-CM Code XGE37-YY Code Onset Dates Condition S tatus SNOMED Code Notes Problem Do not resuscitate Z66 Active 251050465 Problem Hypertension I10 Active 60003822 On no medi cation. She no longer takes Lasix. She had been on Diovan low dose; she was on Diovan HCT in the past, but this had been discontinued due to controlled BP's with her chemotherapy. She restarted it as of early 06/2013 at 1/2 pill po daily, and subsequently stopped it. FELICIA inhibitor cough in 2005. Has no endorgan complications. BP control today optimal without medication. Problem Palpitations R00.2 Active 31675602 On no medi cation with very rare brief palpitations. We'll follow this clinically since even p.r.n. therapy would not take effect until these palpitations have spontaneously resolved anyway. 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 She can always be referred to an numerical control lathe operator if this becomes more problematic. Problem Hypercholesterolemia E78.00 Active 70473240 Mark judy was advised to exercise regularly and follow a low-fat diet. Has an extremely favorable HDL. Her last lipid panel was done in January 2019 and was acceptable for primary prevention. Problem Peripheral sensory neuropathy G62.9 Active 17 004683 She has minimal symptoms of LE neuropathy at present. She had started gabapentin in November 2016 but her symptoms have resolved and she has been off gabapentin since Summer 2016. Problem Loose stools R19.5 Active 891507028 She has h ad loose stools for [...] has also tried Kefir. Colestipol tried in 04/2020. Problem Acquired hypothyroidism E03.9 Active 01950307 2 She had a TSH level of 98 in July 2018 and was started on levothyroxine therapy by her oncologist. I assume this might relate to her Keytruda therapy? Her TSH was suppressed in late May 2019 at which time her dose was reduced from 75-50 mcg daily. She most recently had a TSH in Spring 2019 which demonstrated optimal dosing for her thyroid replacement therapy. 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 [...] skeletal disease; apparently no longer. Most recent [place] oncology visit included CT scans of her chest, abdomen and pelvis and there was no measurable disease in January 2020. She was started back on Keytruda therapy in Spring 2017. Problem Melanocytic nevi of trunk D22.5 Active 889252 002 Problem History of recurrent urinary tract infection Z87.4 40 Active 117068273 She was treated by a urologist in past. She was prescribed suppressive therapy. She is currently off suppressive therapy, but had some recurrences in the Summer of 2016. I have in the past given her a prescription for Macrodantin to take for 3 days at a time, should she have recurrent symptoms. Problem Nevus of left foot D22.72 Active 02779796 Problem Seborrheic keratoses L82.1 Active 787040610 Problem Lentigines L81.4 Active 970386223 Problem Melanocytic nevi of left lower limb, including hip D22.72 Active 454115875 ALLERGIES Allergen (clinical drug ingredient) Drug/Non Drug Allergy do cumented on EMR Reaction Allergy Type Onset Date Status Sulfa (for allergy use only) hepatitis Drug Allergy Active Penicillin (For Allergies Use Only) rash Drug Allerg y Active Motrin edema Drug Allergy Active ciprofloxacin Cipro([facility] Code:[address]-71) rash 9 (based on pictures appears like fixed drug eruption) Drug Allergy Active ENCOUNTERS from 1931 to 2020-08-31 Encounter Location Date Provider Diagnosis [address] [address] [facility] Vacc[facility] Route Administration Date Status Influenza (High Dose 65 & up) IM Intramuscular May 29, 2017 A dministered Influenza (High Dose 65 & up) Unknown Sep 28, 2016 Ot hers Influenza (High Dose 65 & up) Unknown [...] Notes Start Da te End Date Status Levothyroxine Sodium 50 MCG 1 tablet on an empty stoma ch in the morning Orally Daily Active Diovan 40 MG TAKE ONE TABLET BY MOUTH EVERY DAY for 30 Active Levaquin 500 MG 1 tablet Orally Once a day for 3 days 30 D 2019 Active Benadryl 25 MG 1 tablet Orally Once a night at bedtime as needed fo r sleep Active Macrobid 1 1 cap orally bid for 5 day(s) Jul, Active Keytruda 100 MG/4ML Intravenous Every 3 weeks Active Magnesium Active PROCEDURES No Information RESULTS No Results REASON FOR VISIT Start levaquin MEDICAL (GENERAL) HISTORY Type Description Date Medical [...] No Information FUNCTIONAL STATUS No Information ASSESSMENTS No Information PLAN OF TREATMENT Medication Medication Name Sig Start Date Stop Date Levaquin 500 MG 1 tablet Orally Once a day for 3 days 30 Jul, 20 Macrobid 1 1 cap orally bid for 5 day(s) Jul, Diovan 40 MG TAKE ONE TABLET BY MOUTH EVERY DAY for 30 Next Appt Details Provider Name:Jesus Shea, 2020-09-07 09 :30:00 AM, [address] [place], [address], Insurance Providers Payer Name Payer Address Payer Phone Insured Name Patient Relati onship to Insured Coverage Start Date Coverage End Date MEDICARE Part A and B [address] [place] [address] KOSTA JOLLY [facility] [id number] [place] [address] KOSTA JOLLY self
--- OUTSIDE RECORDS SUMMARY | 2020-10-22 09:00 | CCD ---
Author Author [facility] Organization [facility] Address Unknown Phone Unavailable Care Team Providers Care Pipeline Technician Name Role Phone Jesus Shea Unavailable PROBLEMS Type Condition ICD9-CM Code [id number] Code Onset Dates Condition S tatus SNOMED Code Notes Problem Do not resuscitate Z66 Active 036871762 Problem Hypertension I10 Active 46542929 On losarta n again since March 2020. [...] in a week. Problem Palpitations R00.2 Active 45815140 On no medi cation with very rare brief palpitations. We'll follow this clinically since even p.r.n. therapy would not take effect until these palpitations have spontaneously resolved anyway. 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 She can always be referred to an tying in machine operator if this becomes more problematic. Problem Hypercholesterolemia E78.00 Active 75281839 Mark judy was advised to exercise regularly and follow a low-fat diet. Has an extremely favorable HDL. Her last lipid panel was done in August 2020 and was acceptable for primary prevention. 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 She had started gabapentin in November 2016 but her symptoms have resolved and she has been off gabapentin since Summer 2016. Problem Loose stools R19.5 Active 398964484 She has h ad loose stools for [...] with no benefit. She is seeing the embedded nurse on 09/08/2020. 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 [...] skeletal disease; apparently no longer. Most recent [place] oncology visit included CT scans of her chest, abdomen and pelvis and there was no measurable disease in January 2020. She was started back on Keytruda therapy in Spring 2017 but has been off it for quite some time now. 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 227948471 Problem Lentigines L81.4 Active 508566038 Problem Melanocytic nevi of left lower limb, including hip D22.72 Active 694591587 ALLERGIES Allergen (clinical drug ingredient) Drug/Non Drug Allergy do cumented on EMR Reaction Allergy Type Onset Date Status Sulfa (for allergy use only) hepatitis Drug Allergy Active Penicillin (For Allergies Use Only) rash Drug Allerg y Active Motrin edema Drug Allergy Active ciprofloxacin Cipro([facility] Code:[address]-15) rash 9 (based on pictures appears like fixed drug eruption) Drug Allergy Active ENCOUNTERS from 1931 to 2020-09-12 Encounter Location Date Provider Diagnosis [address] [address] Aug, Frank Rhode Medicare annual wellness visit, subseque nt Z00.00 ; Hypertension I10 ; Acquired hypothyroidism E03.9 ; Hypercholesterolemia E78.00 ; 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 ; Palpitations R00.2 ; Peripheral sensory neuropathy G62.9 ; History of recurrent urinary tract infection Z87.440 ; Loose stools R19.5 and Do not resuscitate Z66 IMMUNIZATIONS Vaccine Route Administration Date Status Influenza (Pharmacy Given) Unknown Jun 09, 2020 Admin istered Influenza (High Dose 65 & up) Unknown Jun 06, 2018 Ad ministered Influenza (High Dose 65 & up) IM Intramuscular May 29, 2017 A dministered Influenza (High Dose 65 & up) Unknown Sep 28, 2016 Ot hers Zoster 0.65mL (Zostavax) Unknown January 16, 2012 [...] REASON FOR REFERRAL No Information VITAL SIGNS Weight 117.4 lbs Aug, Height 65 in Aug, BMI 19.53 kg/m2 Aug, Heart Rate 78 /min Aug, Respiratory Rate 18 /min Aug, Temperature 97.9 degrees Fahrenheit Aug, Oximetry 100% Aug, Blood pressure systolic 152 mm Hg Aug, Blood pressure diastolic 78 mm Hg Aug, MEDICATIONS Medication SIG (Take, Route, Frequency, Duration) Notes Start Da te End Date Status Levothyroxine Sodium 50 MCG 1 tablet on an empty stoma ch in the morning Orally Daily for 90 days Active Benadryl 25 MG 1 tablet Orally Once a night at bedtime as needed fo r sleep Active Diovan 80 MG 1 tablet Orally Once a day for 90 days Active Magnesium 250 MG 1 tablet with a meal Orally Daily Active PROCEDURES No Information RESULTS No Results REASON FOR VISIT Annual wellness exam with labs to review MEDICAL (GENERAL) HISTORY Type Description Date Medical [...] Treatment Notes Treatm ent Clinical Notes Aug, Medicare annual wellness visit, subsequent (ICD- 10 - Z00.00) Aug, Hypertension (ICD-10 - I10) On losartan again since March 2020. She no longer [...] report some blood pressures in a week. Aug, Acquired hypothyroidism (ICD-10 - E03.9) She had a TSH level of 98 [...] 3.11 on 50 mcg of levothyroxine daily. Aug, Hypercholesterolemia (ICD-10 - E78.00) P atient was advised to exercise regularly and follow a low-fat diet. Has an extremely favorable HDL. Her last lipid panel was done in August 2020 and was acceptable for primary prevention. Aug, Malignant neoplasm of ureter (ICD-10 - C 66.9) She has a history of urothelial cancer diagnosed in Fall 2011, metastatic to lymph nodes, and had completed 7 cycles of chemotherapy with cis-manchester and gemcitabine as of early November 2012. [...] skeletal disease; apparently no longer. Most recent [place] oncology visit included CT scans of her chest, abdomen and pelvis and there was no measurable disease in January 2020. She was started back on Keytruda therapy in Spring 2017 but has been off it for quite some time now. Aug, Palpitations (ICD-10 - R00.2) On no medi cation with very rare brief palpitations. We'll follow this clinically since even p.r.n. therapy would not take effect until these palpitations have spontaneously resolved anyway. 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 She can always be referred to an tying in machine operator if this becomes more problematic. Aug, Peripheral sensory neuropathy (ICD-10 - G62.9) She has minimal symptoms of LE neuropathy at present. She had started gabapentin in November 2016 but her symptoms have resolved and she has been off gabapentin since Summer 2016. Aug, History of recurrent urinary tract infec tion (ICD-10 - Z87.440) She was treated by a urologist in [...] short course of Levaquin at that time. Aug, Loose stools (ICD-10 - R19.5) She has matta d loose stools for some time. A colonoscopy [...] with no benefit. She is seeing the embedded nurse on 09/08/2020. Aug, Do not resuscitate (ICD-10 - Z66) PLAN OF TREATMENT Medication Medication Name Sig Start Date Stop Date Levothyroxine Sodium 50 MCG 1 tablet on an empty stoma ch in the morning Orally Daily for 90 days Diovan 80 MG 1 tablet Orally Once a day for 90 days Next Appt Details 11/2020 Reason: Provider Name:Jesus Christinee, 2020-12-09 10 :00:00 AM, [address] [place] [address], [phone], Insurance Providers Payer Name Payer Address Payer Phone Insured Name Patient Relati onship to Insured Coverage Start Date Coverage End Date MEDICARE Part A and B [facility] [address] [facility] [id number] KOSTA JOLLY BC[id number] [facility] [id number] KOSTA JOLLY
--- OUTSIDE RECORDS SUMMARY | 2020-10-22 09:00 | CCD ---
Author Author [facility] Organization [facility] Address Unknown Phone Unavailable Care Team Providers Care Iphone Developer Name Role Phone Melo Wang Unavailable PROBLEMS Type Condition ICD9-CM Code [id number] Code Onset Dates Condition S tatus SNOMED Code Notes Problem Do not resuscitate Z66 Active 265619820 Problem Hypertension I10 Active 74570818 On no medi cation. She no longer [...] optimal without medication. Problem Palpitations R00.2 Active 12049257 On no medi cation with very rare brief palpitations. We'll follow this clinically since even p.r.n. therapy would not take effect until these palpitations have spontaneously resolved anyway. 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 She can always be referred to an advanced manager if this becomes more problematic. Problem Hypercholesterolemia E78.00 Active 45426254 Mark judy was advised to exercise regularly and follow a low-fat diet. Has an extremely favorable HDL. Her last lipid panel was done in January 2019 and was acceptable for primary prevention. 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 She had started gabapentin in November 2016 but her symptoms have resolved and she has been off gabapentin since Summer 2016. Problem Loose stools R19.5 Active 135279450 She has h ad loose stools for [...] in 04/2020. 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 [...] skeletal disease; apparently no longer. Most recent [place] oncology visit included CT scans of her chest, abdomen and pelvis and there was no measurable disease in January 2020. She was started back on Keytruda therapy in Spring 2017. Problem Melanocytic nevi of trunk D22.5 Active 783770 002 Problem History of recurrent urinary tract infection Z87.4 40 Active 882344287 She was treated by a urologist in past. She was prescribed suppressive therapy. She is currently off suppressive therapy, but had some recurrences in the Summer of 2016. I have in the past given her a prescription for Macrodantin to take for 3 days at a time, should she have recurrent symptoms. 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 Active 408146303 Problem Lentigines L81.4 Active 413688143 Problem Melanocytic nevi of left lower limb, including hip D22.72 Active 966262984 ALLERGIES Allergen (clinical drug ingredient) Drug/Non Drug Allergy do cumented on EMR Reaction Allergy Type Onset Date Status Sulfa (for allergy use only) hepatitis Drug Allergy Active Penicillin (For Allergies Use Only) rash Drug Allerg y Active Motrin edema Drug Allergy Active ciprofloxacin Cipro([facility] Code:[address]-67) rash 9 (based on pictures appears like fixed drug eruption) Drug Allergy Active ENCOUNTERS from 1930 to 2020-08-26 Encounter Location Date Provider Diagnosis [address] [address] Jul, Melo Wang Urinary frequency R35.0 IMMUNIZATIONS Vaccine Route Administration Date Status Influenza (High Dose 65 & up) Unknown [...] Active Magnesium Active PROCEDURES No Information RESULTS Component Value Reference Range UA URINALYSIS Reviewed date:08/22/2020 17:56:36 Interpretation:looks likely for a UTI. A Cx was already ordered. Performing Lab:[facility] [address] [address] , ,[facility] URINE CULTURE Reviewed date:08/26/2020 10:40:55 Interpretation: Performing Lab:[facility] [address] [facility] [address] , ,[facility] REASON FOR VISIT Start levaquin MEDICAL (GENERAL) [...] Notes Treatment Notes Treatm ent Clinical Notes Jul, Urinary frequency (ICD-10 - R35.0) PLAN OF TREATMENT Medication Medication Name Sig Start Date Stop Date Levaquin 500 MG 1 tablet Orally Once a day for 3 days Jul, Macrobid 1 1 cap orally bid for 5 day(s) Jul, Diovan 40 MG TAKE ONE TABLET BY MOUTH EVERY DAY for 30 Next Appt Details Provider Name:Jesus Shea, 2020-09-07 09 :30:00 AM, [address] [place], [phone], Insurance Providers Payer Name Payer Address Payer Phone Insured Name Patient Relati onship to Insured Coverage Start Date Coverage End Date MEDICARE Part A and B [facility] [id number] [place] [phone] [facility] JOLLY [facility] [id number] [facility] [place] [facility] [address] KOSTA JOLLY self
--- OUTSIDE RECORDS SUMMARY | 2020-10-22 09:00 | CCD ---
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 BERNARDO DO Unavailable [phone] Pastora SMITH BERNARDO DO Unavailable [phone] Pastora SMITH BERNARDO DO Unavailable [phone] Pastora SMITH BERNARDO DO Unavailable [phone] Pastora SMITH BERNARDO DO Unavailable [phone] Pastora SMITH BERNARDO DO Unavailable [phone] Pastora SMITH BERNARDO DO Unavailable [phone] Pastora SMITH BERNARDO DO Unavailable [phone] Pastora SMITH BERNARDO DO Unavailable [phone] Pastora SMITH BERNARDO DO Unavailable [phone] Pastora SMITH BERNARDO DO Unavailable [phone] Pastora SMITH BERNARDO DO Unavailable [phone] Pastora SMITH BERNARDO DO Unavailable [phone] Pastora SMITH BERNARDO DO Unavailable [phone] Pastora SMITH BERNARDO DO Unavailable [phone] Pastora SMITHEW DO Unavailable [phone] Pastora SMITHEW DO Unavailable [phone] Pastora SMITHEW DO Unavailable [phone] VIDYA, ROSEMARY PATRICK Unavailable Unavailable REINDL, ROSEMARY PATRICK Unavailable Unavailable REINDL, ROSEMARY PATRICK Unavailable Unavailable REINDL, ROSEMARY PATRICK Unavailable Unavailable REINDL, ROSEMARY PATRICK Unavailable Unavailable REINDL, ROSEMARY PATRICK Unavailable Unavailable REINDL, ROSEMARY PATRICK Unavailable Unavailable REINDL, ROSEMARY PATRICK Unavailable Unavailable REINDL, ROSEMARY PATRICK Unavailable Unavailable REINDL, ROSEMARY PATRICK Unavailable Unavailable REINDL, ROSEMARY PATRICK Unavailable Unavailable REINDL, ROSEMARY PATRICK Unavailable Unavailable REINDL, ROSEMARY PATRICK Unavailable Unavailable REINDL, ROSEMARY PATRICK Unavailable Unavailable REINDL, ROSEMARY PATRICK Unavailable Unavailable REINDL, ROSEMARY PATRICK Unavailable Unavailable REINDL, ROSEMARY PATRICK Unavailable Unavailable REINDL, ROSEMARY PATRICK Unavailable Unavailable REINDL, ROSEMARY PATRICK Unavailable Unavailable REINDL, ROSEMARY PATRICK Unavailable Unavailable REINDL, ROSEMARY PATRICK Unavailable Unavailable REINDL, ROSEMARY PATRICK Unavailable Unavailable REINDL, ROSEMARY PATRICK Unavailable Unavailable REINDL, ROSEMARY MD Unavailable Unavailable REINDL, ROSEMARY MD Unavailable Unavailable REINDL, ROSEMARY MD Unavailable Unavailable REINDL, ROSEMARY MD Unavailable Unavailable REINDL, ROSEMARY MD Unavailable Unavailable REINDL, ROSEMARY MD Unavailable Unavailable REINDL, ROSEMARY MD Unavailable Unavailable REINDL, ROSEMARY MD Unavailable Unavailable REINDL, ROSEMARY MD Unavailable Unavailable REINDL, ROSEMARY MD Unavailable Unavailable REINDL, ROSEMARY MD Unavailable Unavailable REINDL, ROSEMARY MD Unavailable Unavailable REINDL, ROSEMARY MD Unavailable Unavailable REINDL, ROSEMARY MD Unavailable Unavailable REINDL, ROSEMARY MD Unavailable Unavailable REINDL, ROSEMARY MD Unavailable Unavailable REINDL, ROSEMARY MD Unavailable Unavailable REINDL, ROSEMARY MD Unavailable Unavailable REINDL, ROSEMARY MD Unavailable Unavailable REINDL, ROSEMARY MD Unavailable Unavailable REINDL, ROSEMARY MD Unavailable Unavailable Re-disclosure Warning The records that you are about to access may contain information from federally-assisted alcohol or drug abuse programs. If such information is present, then the following federally mandated warning applies: This information has been disclosed to you from records protected by federal confidentiality rules (42 CFR part 2). The federal rules prohibit you from making any further disclosure of this information unless further disclosure is expressly permitted by the written consent of the person to whom it pertains or as otherwise permitted by 42 CFR part 2. A general authorization for the release of medical or other information is NOT sufficient for this purpose. The Federal rules restrict any use of the information to criminally investigate or prosecute any alcohol or drug abuse patient.The records that you are about to access may contain highly sensitive health information, the redisclosure of which is protected by Article 27-F of the [facility] Public Health law. If you continue you may have access to information: Regarding HIV / AIDS; Provided by facilities licensed or operated by the [facility] Office of Mental Health; or Provided by the [facility] Office for People With Developmental Disabilities. If such information is present, then the following [facility] mandated warning applies: This information has been disclosed to you from confidential records which are protected by state law. State law prohibits you from making any further disclosure of this information without the specific written consent of the person to whom it pertains, or as otherwise permitted by law. Any unauthorized further disclosure in violation of state law may result in a fine or group home sentence or both. A general authorization for the release of medical or other information is NOT sufficient authorization for further disc losure. Family History Family Member Name Family Member Gender Family Member Status Date o f Status Description Data Source(s) Unknown Female Problem MEDENT ([facility], ) Encounters Encounter Providers Location Date Indications Data Source(s ) Unknown [address] [facility] [address] 09/21/2020 12:00:00 AM EST eCW1 ([facility]) Outpatient Attender: ROSEMARY Caldera/Finesse/Cordell/Rein dl 09/08/2020 12:45:00 PM EST MEDENT ([facility], ) Outpatient [address] [facility] [address] 09/07/2020 12:00:00 AM EST eCW1 ([facility]) Unknown [address] [facility] [address] 08/26/2020 12:00:00 AM EST eCW1 ([facility]) Unknown [address] [facility] [address] 08/22/2020 12:00:00 AM EST eCW1 ([facility]) Office Visit Attender: Robbie Caldera/Finesse/Cordell/Reinshivam 05/06/2020 01:00:00 PM EDT MEDENT ([facility], ) Outpatient<td ID="encounterTypeDescripti onID0">1 Year Follow-Up & Testing</td><td>Bernardo Smith DO</td><td>Rosemary Gallegos MD [facility]</td><td>09/18/2019</td><td><content ID="encounterDiagnosisID0-0">Dry Eye Syndrome</content>, <content ID="encounterDiagnosisID0-1">Macular Degeneration Nonexudative Bilateral Early Dry Stage</content>, <content ID="encounterDiagnosisID0-2">Pseudophakia</content>, <content ID="encounterDiagnosisID0-3">Vitreous Disorders Degeneration</content></td> Attender: BERNARDO Sanches MD [facility] 09/18/2019 08:14:00 AM EST - 09/18/2019 09:36:00 AM EST Vitreous Disorders DegenerationPseudophakiaMacular Degeneration Nonexudative Bilateral Early Dry StageDry Eye Syndrome RISHI (Rosemary Alvarez MD [facility]) Vitreous Disorders Degeneration Pseudophakia Macular Degeneration Nonexudative Bilate ral Early Dry Stage Dry Eye Syndrome Immunizations Vaccine Date Status Description Data Source(s) IIV3. This is one of two codes replacing CVX 15, which is being retired. 06/09/2020 06:41:00 AM EDT completed eCW1 ([facility]) IIV3. This is one of two codes replacing CVX 15, which is being retired. 06/09/2020 06:41:00 AM EDT completed eCW1 ([facility]) INFLUENZA VIRUS VACCINE QUADRIVAL SPLIT 2019-(65 YR UP)/PF 06/03/2020 12:00:00 AM EDT completed [facility] Medications Medication Brand Name Start Date Product Form Dose Route Admi nistrative Instructions Pharmacy Instructions Status Indications Reaction Description Data Source(s) 50 mcg 09/27/2020 12:00:00 AM EST tablet 90 TAKE ONE TABLET BY MOUTH EVERY DAY IN THE MORNING ON AN EMPTY STOMACH TAKE ONE TABLET BY MOUTH EVERY DAY IN MORNING ON AN EMPTY STOMACH SOLD: 09/30/2020 [facility] 3 mg 09/24/2020 12:00:00 AM EST capsule,delayed,extend. release 90 TAKE THREE CAPSULES BY MOUTH EVERY DAY TAKE THREE CAPSULES BY MOUTH EVERY DAY SOLD: 09/25/2020 [facility] 160 mg 09/21/2020 12:00:00 AM EST tablet 90 TAKE ONE TABLET BY MOUTH EVERY DAY TAKE ONE TABLET BY MOUTH EVERY DAY SOLD: 09/24/2020 [facility] 80 mg 09/07/2020 12:00:00 AM EST tablet 90 TAKE ONE TABLET BY MOUTH EVERY DAY TAKE ONE TABLET BY MOUTH EVERY DAY SOLD: 09/08/2020 [facility] Levofloxacin 500 MG Oral Tablet Levaquin 500 MG Levaquin 500 MG 08/26/2020 12:00:00 AM EST 1.0 {tablet} active Le vaquin 500 MG eCW1 ([facility]) 500 mg 08/26/2020 12:00:00 AM EST tablet 3 TAKE ONE TABLET BY MOUTH ONCE A DAY FOR 3 DAYS TAKE ONE TABLET BY MOUTH ONCE A DAY FOR 3 DAYS SOLD: 020 [facility] Levofloxacin 500 MG Oral Tablet Levaquin 500 MG Levaquin 500 MG 08/26/2020 12:00:00 AM EST 1.0 {tablet} active Le vaquin 500 MG eCW1 ([facility]) Macrobid 1 UNK 08/22/2020 12:00:00 AM EST active Macrobid 1 eCW1 ([facility]) 100 mg 08/22/2020 12:00:00 AM EST capsule 10 TAKE ONE CAPSULE BY MOUTH TWICE A DAY FOR 5 DAYS TAKE ONE CAPSULE BY MOUTH TWICE A DAY FOR 5 DAYS SOLD: 08/22/2020 [facility] Macrobid 1 UNK 08/22/2020 12:00:00 AM EST active Macrobid 1 eCW1 ([facility]) 40 mg 08/10/2020 12:00:00 AM EST tablet 30 TAKE ONE TABLET BY MOUTH EVERY DAY TAKE ONE TABLET BY MOUTH EVERY DAY SOLD: 08/11/2020 [facility] 40 mg 07/13/2020 12:00:00 AM EST tablet 30 TAKE ONE TABLET BY MOUTH EVERY DAY TAKE ONE TABLET BY MOUTH EVERY DAY SOLD: 07/14/2020 [facility] 50 mcg 07/07/2020 12:00:00 AM EST tablet 30 TAKE ONE TABLET BY MOUTH EVERY DAY TAKE ONE TABLET BY MOUTH EVERY DAY SOLD: 08/06/2020 [facility] 50 mcg 07/07/2020 12:00:00 AM EST tablet 30 TAKE ONE TABLET BY MOUTH EVERY DAY TAKE ONE TABLET BY MOUTH EVERY DAY SOLD: 07/08/2020 [facility] 50 mcg 07/07/2020 12:00:00 AM EST tablet 30 TAKE ONE TABLET BY MOUTH EVERY DAY TAKE ONE TABLET BY MOUTH EVERY DAY SOLD: 09/06/2020 [facility] 40 mg 06/08/2020 12:00:00 AM EDT tablet 30 TAKE ONE TABLET BY MOUTH EVERY DAY TAKE ONE TABLET BY MOUTH EVERY DAY SOLD: 06/11/2020 [facility] 40 mg 05/15/2020 12:00:00 AM EDT tablet 30 TAKE ONE TABLET BY MOUTH EVERY DAY TAKE ONE TABLET BY MOUTH EVERY DAY SOLD: 05/15/2020 [facility] 1 gram 04/29/2020 12:00:00 AM EDT tablet 60 TAKE ONE TABLET BY MOUTH TWICE A DAY TAKE ONE TABLET BY MOUTH TWICE A DAY SOLD: 05/01/2020 [facility] 40 mg 04/15/2020 12:00:00 AM EDT tablet 30 TAKE ONE TABLET BY MOUTH EVERY DAY TAKE ONE TABLET BY MOUTH EVERY DAY SOLD: 04/15/2020 [facility] [id number] 03/21/2020 12:00:00 AM EDT Suspension 100 RISE OVER ORAL CAVITY WITH 5ML FOR 60 SECONDS THREE TIMES A DAY RISE OVER ORAL CAVITY WITH 5ML FOR 60 SECONDS THREE TIMES A DAY SOLD: 03/21/2020 [facility] [id number] 03/21/2020 12:00:00 AM EDT Suspension 100 RISE OVER ORAL CAVITY WITH 5ML FOR 60 SECONDS THREE TIMES A DAY RISE OVER ORAL CAVITY WITH 5ML FOR 60 SECONDS THREE TIMES A DAY SOLD: 03/31/2020 [facility] [id number] 03/21/2020 12:00:00 AM EDT Suspension 100 RISE OVER ORAL CAVITY WITH 5ML FOR 60 SECONDS THREE TIMES A DAY RISE OVER ORAL CAVITY WITH 5ML FOR 60 SECONDS THREE TIMES A DAY SOLD: 05/01/2020 [facility] 0.05 % 10/09/2019 12:00:00 AM EST gel 15 APPLY THIN FILM OF GEL OVER THE AFFECTED GINGIVA THEN COVER WITH 2X2 GAUZE, KEEP IN PLACE FOR 20MINUTES REPEAT THREE TIMES A DAY APPLY THIN FILM OF GEL OVER THE AFFECTED GINGIVA THEN COVER WITH 2X2 GAUZE, KEEP IN PLACE FOR 20MINUTES REPEAT THREE TIMES A DAY SOLD: 10/10/2019 [facility] 0.05 % 10/09/2019 12:00:00 AM EST gel 15 APPLY THIN FILM OF GEL OVER THE AFFECTED GINGIVA THEN COVER WITH 2X2 GAUZE, KEEP IN PLACE FOR 20MINUTES REPEAT THREE TIMES A DAY APPLY THIN FILM OF GEL OVER THE AFFECTED GINGIVA THEN COVER WITH 2X2 GAUZE, KEEP IN PLACE FOR 20MINUTES REPEAT THREE TIMES A DAY SOLD: 01/10/2020 [facility] 0.05 % 10/09/2019 12:00:00 AM EST gel 15 APPLY THIN FILM OF GEL OVER THE AFFECTED GINGIVA THEN COVER WITH 2X2 GAUZE, KEEP IN PLACE FOR 20MINUTES REPEAT THREE TIMES A DAY APPLY THIN FILM OF GEL OVER THE AFFECTED GINGIVA THEN COVER WITH 2X2 GAUZE, KEEP IN PLACE FOR 20MINUTES REPEAT THREE TIMES A DAY SOLD: 11/20/2019 [facility] 0.05 % 10/09/2019 12:00:00 AM EST gel 15 APPLY THIN FILM OF GEL OVER THE AFFECTED GINGIVA THEN COVER WITH 2X2 GAUZE, KEEP IN PLACE FOR 20MINUTES REPEAT THREE TIMES A DAY APPLY THIN FILM OF GEL OVER THE AFFECTED GINGIVA THEN COVER WITH 2X2 GAUZE, KEEP IN PLACE FOR 20MINUTES REPEAT THREE TIMES A DAY SOLD: 10/27/2019 [facility] 0.5 mg/5 mL 10/02/2019 12:00:00 AM EST solution 100 RINSE WITH 5ML BY MOUTH FOR 1 MINUTE THREE TIMES A DAY AND SPIT OUT RINSE WITH 5ML BY MOUTH FOR 1 MINUTE THREE TIMES A DAY AND SPIT OUT SOLD: 10/02/2019 [facility] 0.5 mg/5 mL 10/02/2019 12:00:00 AM EST solution 100 RINSE WITH 5ML BY MOUTH FOR 1 MINUTE THREE TIMES A DAY AND SPIT OUT RINSE WITH 5ML BY MOUTH FOR 1 MINUTE THREE TIMES A DAY AND SPIT OUT SOLD: 01/10/2020 [facility] 0.5 mg/5 mL 10/02/2019 12:00:00 AM EST solution 100 RINSE WITH 5ML BY MOUTH FOR 1 MINUTE THREE TIMES A DAY AND SPIT OUT RINSE WITH 5ML BY MOUTH FOR 1 MINUTE THREE TIMES A DAY AND SPIT OUT SOLD: 11/22/2019 [facility] Levothyroxine Sodium 0.05 MG Oral Tablet Levothyroxine Sodium 50 MCG Oral Tablet Levothyroxine Sodium 50 MCG Oral Tablet 09/18/2019 12:00:00 AM EST 1 active Levothyroxine Sodium 0.05 MG Ora l Tablet PAOLI (Rosemary Alvarez MD [facility]) 0.5 mg/5 mL 06/26/2019 12:00:00 AM EDT solution 100 RINSE AND SPIT 5ML BY MOUTH THREE TIMES A DAY FOR 1 MINUTE RINSE AND SPIT 5ML BY MOUTH THREE TIMES A DAY FOR 1 MINUTE SOLD: 09/28/2019 [facility] 50 mcg 06/26/2019 12:00:00 AM EDT tablet 30 TAKE ONE TABLET BY MOUTH EVERY DAY TAKE ONE TABLET BY MOUTH EVERY DAY SOLD: 01/08/2020 [facility] 50 mcg 06/26/2019 12:00:00 AM EDT tablet 30 TAKE ONE TABLET BY MOUTH EVERY DAY TAKE ONE TABLET BY MOUTH EVERY DAY SOLD: 10/10/2019 [facility] 50 mcg 06/26/2019 12:00:00 AM EDT tablet 30 TAKE ONE TABLET BY MOUTH EVERY DAY TAKE ONE TABLET BY MOUTH EVERY DAY SOLD: 09/09/2019 [facility] 50 mcg 06/26/2019 12:00:00 AM EDT tablet 30 TAKE ONE TABLET BY MOUTH EVERY DAY TAKE ONE TABLET BY MOUTH EVERY DAY SOLD: 03/07/2020 [facility] 50 mcg 06/26/2019 12:00:00 AM EDT tablet 30 TAKE ONE TABLET BY MOUTH EVERY DAY TAKE ONE TABLET BY MOUTH EVERY DAY SOLD: 11/09/2019 [facility] 50 mcg 06/26/2019 12:00:00 AM EDT tablet 30 TAKE ONE TABLET BY MOUTH EVERY DAY TAKE ONE TABLET BY MOUTH EVERY DAY SOLD: 02/02/2020 [facility] 50 mcg 06/26/2019 12:00:00 AM EDT tablet 30 TAKE ONE TABLET BY MOUTH EVERY DAY TAKE ONE TABLET BY MOUTH EVERY DAY SOLD: 12/10/2019 [facility] 50 mcg 06/26/2019 12:00:00 AM EDT tablet 30 TAKE ONE TABLET BY MOUTH EVERY DAY TAKE ONE TABLET BY MOUTH EVERY DAY SOLD: 06/06/2020 [facility] 50 mcg 06/26/2019 12:00:00 AM EDT tablet 30 TAKE ONE TABLET BY MOUTH EVERY DAY TAKE ONE TABLET BY MOUTH EVERY DAY SOLD: 05/09/2020 [facility] 50 mcg 06/26/2019 12:00:00 AM EDT tablet 30 TAKE ONE TABLET BY MOUTH EVERY DAY TAKE ONE TABLET BY MOUTH EVERY DAY SOLD: 04/09/2020 [facility] Levothyroxine .50mcg Oral Tablet Levothyroxine .50mcg Oral T ablet 09/18/2018 12:00:00 AM EST 1 aborted Levothy roxine PAOLI (Rosemary Alvarez MD [facility]) Insurance Providers Payer name Policy type / Coverage type Policy ID Covered constitution party ID Covered constitution party's relationship to ratliff Policy [place] Plan Information MEDICARE [id number] SP [id number] [place]/307 [id number] SP [id number] [place]/307 [id number] SP [id number] MEDICARE C [id number] S [id number] EXCELLUS BCBS B [id number] S [id number] BCBS of [facility] Other 0 Self 0 Medicare Part B of [place] Other 0 Se lf 0 MEDICARE [id number] SP [id number] ANSI-Medicare Part B [id number] ANSI-Commercial [id number] ANSI-Medicare Part B [id number] ANSI-Commercial [id number] ANSI-Commercial [id number] ANSI-Medicare Part B [id number] ANSI-Medicare Part B [id number] ANSI-Commercial [id number] ANSI-Commercial [id number] ANSI-Medicare Part B [id number] ANSI-Commercial [id number] ANSI-Medicare Part B [id number] ANSI-Commercial [id number] ANSI-Medicare Part B [id number] [place]/307 [id number] SP [id number] MEDICARE [id number] SP [id number] ANSI-Medicare Part B [id number] ANSI-Commercial [id number] MEDICARE [id number] SP [id number] ANSI-Commercial [id number] ANSI-Medicare Part B [id number] [place]/307 [id number] SP [id number] MEDICARE [id number] SP [id number] B [place] 302/307 [id number] SP [id number] [place] 302/307 [id number] SP [id number] MEDICARE [id number] SP [id number] B MEDICARE C [id number] S [id number] B Excellus BCBS Medigap Part B [id number] Self [id number] [place] Medicare Primary Self [place] 306/806 [id number] SP [id number] MEDICARE BLUE PPO 306 [id number] SP [id number] [place] Family Dependent [place]ig[place] Part B Self Medicare Medicare Primary Self EXCELLUS BCBS S [id number] S [id number] [place] 306/806 [id number] SP [id number] B Surgeries/Procedures Procedure Description Date Indications Data Source(s) Excise Benign Lesion 1.1-2CM Scalp/Neck/Hands/Feet/Genitalia 04/20/2020 12:00:00 AM EDT [facility] No recent change in medical history No recent change in medi yelitza history 09/18/2019 12:00:00 AM EST RISHI (Rosemary coronado MD [facility]) Currently wearing eyeglasses Currently wearing eyeglasses 12:00:00 AM EST RISHI (Rosemary Alvarez MD [facility]) Reported medical history Kidney Cancer 2011 Reported medical history Kidney Cancer 2012 09/18/2019 12:00:00 AM EST RISHI (Allen Alvarez MD [facility]) History of extracapsular cataract extraction OU [address] Fierro History of extracapsular cataract extraction OU [address] Fierro 09/18/2019 12:00:00 AM EST RISHI (Rosemary coronado MD [facility]) Surgical / procedural history Surgical / procedural history 09/18/2019 12:00:00 AM EST RISHI (Rosemary Alvarez MD [facility]) COMPUTERIZED OPHTHALMIC IMAGING RETINA Scodi Retina, w ith interpretation and report ([place]) 09/18/2019 12:00:00 AM EST RISHI (Allen Alvarez MD [facility]) Comprehensive eye exam established patient (25) Alyssae hensive eye exam established patient (25) 09/18/2019 12:00:00 AM EST RISHI (Rosemary Alvarez MD [facility]) Results ID Date Data Source UA URINALYSIS 08/22/2020 12:00:00 AM EST eCW1 ([facility]) Name Value Range Interpretation Code Description Data Noemi rce(s) Supporting Document(s) Laboratory studies (set) UA URINALYS IS eCW1 ([facility]) ID Date Data Source URINE CULTURE 08/22/2020 12:00:00 AM EST eCW1 ([facility]) Name Value Range Interpretation Code Description Data Noemi rce(s) Supporting Document(s) Laboratory studies (set) URINE CULTU RE eCW1 ([facility]) ID Date Data Source [id number] 04/20/2020 04:38:00 PM EDT MEDENT ([facility], ) Name Value Range Interpretation Code Description Data Noemi rce(s) Supporting Document(s) Surgical pathology study Laboratory test result [facility] ([facility], ) FINAL DIAGNOSIS Skin, left lower leg, excision: [...] 1520 Signed MARY FUENTES MD 04/22/2020 1212 Procedure Social History Code Duration Value Status Description Data Source(s ) Smoking 09/07/2020 12:00:00 AM EST Never Smoker completed Never S moker eCW1 ([facility]) Smoking 09/07/2020 12:00:00 AM EST Never Smoker completed Never S moker eCW1 ([facility]) Smoking 02/18/2020 12:00:00 AM EDT Never Smoker completed Never S moker eCW1 ([facility]) Smoking 02/18/2020 12:00:00 AM EDT Never Smoker completed Never S moker eCW1 ([facility]) Smoking 09/18/2019 09:39:11 AM EST Never smoked tobacco (findi ng) completed Never smoked tobacco (finding) RISHI (Rosemary Alvarez MD [facility]) Vital Signs ID Date Data Source UNK Name Value Range Interpretation Code Description Data Source(s) Body weight 53.978 kg 53.978 kg [facility] ([facility]) [place] body weight 125 [lb_av] 125 [lb_av] [facility] Body mass index (BMI) [Ratio] 19.8 kg/m2 19.8 k g/m2 [facility] ([facility]) Body weight 119.00 [lb_av] 119.00 [lb_av] [facility] ([facility]) Body height 65 [in_i] 65 [in_i] [facility] ([facility]) 5'5" Diastolic blood pressure 90 mm[Hg] 90 mm[Hg] [facility] ([facility]) Systolic blood pressure 190 mm[Hg] 190 mm[Hg] [facility] Body surface area Derived from formula 1.59 m2 1.59 m2 [facility] ([facility]) Diastolic blood pressure 78 mm[Hg] 78 mm[Hg] eCW1 ([facility]) Systolic blood pressure 152 mm[Hg] 152 mm[Hg] e CW1 ([facility]) Body temperature 97.9 [degF] 97.9 [degF] eCW1 ( [facility]) Respiratory rate 18 /min 18 /min eCW1 ([facility]) Heart rate 78 /min 78 /min eCW1 ([facility]) Body mass index (BMI) [Ratio] 19.53 kg/m2 19.53 kg/m2 eCW1 ([facility]) Body height 65 [in_i] 65 [in_i] eCW1 ([facility]) Body weight 117.4 [lb_av] 117.4 [lb_av] eCW1 ([facility]) Body surface area Derived from formula 1.57 m2 1.57 m2 [facility] Body weight 52.277 kg 52.277 kg [facility] ([facility]) [place] body weight 125 [lb_av] 125 [lb_av] [facility] ([facility]) Body mass index (BMI) [Ratio] 19.2 kg/m2 19.2 k g/m2 [facility] ([facility]) Body weight 115.25 [lb_av] 115.25 [lb_av] [facility] T ([facility]) Body height 65 [in_i] 65 [in_i] [facility] ([facility]) 5'5" Diastolic blood pressure 80 mm[Hg] 80 mm[Hg] [facility] ([facility]) Systolic blood pressure 130 mm[Hg] 130 mm[Hg] [facility] [facility] Body weight 51.484 kg 51.484 kg [facility] ([facility]) Body mass index (BMI) [Ratio] 18.9 kg/m2 18.9 k g/m2 [facility] ([facility]) Body weight 113.50 [lb_av] 113.50 [lb_av] [facility] ([facility]) Body height 65 [in_i] 65 [in_i] [facility] ([facility]) 5'5" Heart rate 67 /min 67 /min [facility] ([facility]) Diastolic blood pressure 78 mm[Hg] 78 mm[Hg] [facility] ([facility]) Systolic blood pressure 173 mm[Hg] 173 mm[Hg] [facility] ([facility]) Patient Treatment Plan of Care Planned Activity Planned Date Details Description Data Source (s) Levofloxacin 500 MG Oral Tablet 08/26/2020 12:00:00 AM EST eCW1 ([facility]) Levofloxacin 500 MG Oral Tablet 08/26/2020 12:00:00 AM EST eCW1 ([facility]) Macrobid 1 08/22/2020 12:00:00 AM EST e CW1 ([facility]) Macrobid 1 08/22/2020 12:00:00 AM EST e CW1 ([facility])
--- OUTSIDE RECORDS SUMMARY | 2020-10-22 09:34 | CCD ---
Author Author [facility] Organization [facility] Address Unknown Phone Unavailable Care Team Providers Care Furnace Caretaker Name Role Phone Shahla Joel Unavailable Unavailable WisamShahla Unavailable Unavailable WisamShahla Unavailable Unavailable [place], Shahla Robbie Unavailable Unavailable Wisam, Shahla Robbie Unavailable Unavailable [place], Shahla Robbie Unavailable Unavailable Wisam, Shahla Robbie Unavailable Unavailable Wisam, Shahla Robbie Unavailable Unavailable Pastora SMITH DO Unavailable [phone] Pastora SMITH DO Unavailable [phone] Pastora SMITH DO Unavailable [phone] DOMINGO, A. BERNARDO DO Unavailable [phone] [...] Unavailable REINDL, ROSEMARY PATRICK Unavailable Unavailable REINDL, ROSEAMRY PATRICK Unavailable Unavailable REINDL, ROSEMARY PATRICK Unavailable [...] is protected by Article 27-F of the [facility] Public Health law. If you continue you may have access to information: Regarding HIV / AIDS; Provided by facilities licensed or operated by the [facility] Office of Mental Health; or Provided by the [facility] Office for People With Developmental Disabilities. If such information is present, then the following [facility] mandated warning applies: This information [...] law may result in a fine or prison sentence or both. A general authorization for the release of medical or other information is NOT sufficient authorization for further disc losure. Family History Family Member Name Family Member Gender Family Member Status Date o f Status Description Data Source(s) Unknown Female Problem MEDENT ([facility], ) Encounters Encounter Providers Location Date Indications Data Source(s ) [place] [address] [facility] [address] 09/21/2020 12:00:00 AM EST eCW1 ([facility]) Outpatient Attender: ROSEMARY Caldera/iFnesse/Cordell/Rein dl 09/08/2020 12:45:00 PM EST MEDENT ([facility], ) [place] [address] [facility] [address] 09/07/2020 12:00:00 AM EST eCW1 ([facility]) [place] [address] [facility] [address] 08/26/2020 12:00:00 AM EST eCW1 ([facility]) [place] [address] [facility] [address] 08/22/2020 12:00:00 AM EST eCW1 ([facility]) Office Visit Attender: Robbie Caldera/Finesse/Cordell/Reinshivam 05/06/2020 01:00:00 PM EDT MEDENT ([facility], ) Outpatient<td ID="encounterTypeDescripti onID0">1 Year Follow-Up & Testing</td><td>Bernardo Smith DO</td><td>Rosemary Gallegos MD [facility]</td><td>09/18/2019</td><td><content ID="encounterDiagnosisID0-0">Dry Eye Syndrome</content>, <content ID="encounterDiagnosisID0-1">Macular Degeneration Nonexudative Bilateral Early Dry Stage</content>, <content ID="encounterDiagnosisID0-2">Pseudophakia</content>, <content ID="encounterDiagnosisID0-3">Vitreous Disorders Degeneration</content></td> Attender: BERNARDO Sanches MD [facility] 09/18/2019 08:14:00 AM EST - 09/18/2019 09:36:00 AM EST Vitreous Disorders DegenerationPseudophakiaMacular Degeneration Nonexudative Bilateral Early Dry StageDry Eye Syndrome RISHI (Rosemary Alvarez MD [facility]) Vitreous Disorders Degeneration Pseudophakia Macular Degeneration Nonexudative Bilate ral Early Dry Stage Dry Eye Syndrome Immunizations Vaccine Date Status Description Data Source(s) IIV3. This is one of two codes replacing CVX 15, which is being retired. 06/09/2020 06:41:00 AM EDT completed eCW1 ([facility]) IIV3. This is one of two codes replacing CVX 15, which is being retired. 06/09/2020 06:41:00 AM EDT completed eCW1 ([facility]) INFLUENZA VIRUS VACCINE QUADRIVAL SPLIT 2019-(65 YR [...] {tablet} active Le vaquin 500 MG eCW1 ([facility]) 500 mg 08/26/2020 12:00:00 AM EST tablet 3 TAKE ONE TABLET BY MOUTH ONCE A DAY FOR 3 DAYS TAKE ONE TABLET BY MOUTH ONCE A DAY FOR 3 DAYS SOLD: 020 [facility] Levofloxacin 500 MG Oral Tablet Levaquin 500 MG Levaquin 500 MG 08/26/2020 12:00:00 AM EST 1.0 {tablet} active Le vaquin 500 MG eCW1 ([facility]) Macrobid 1 UNK 08/22/2020 12:00:00 AM EST active Macrobid 1 eCW1 ([facility]) 100 mg 08/22/2020 12:00:00 AM EST capsule 10 TAKE ONE CAPSULE BY MOUTH TWICE A DAY FOR 5 DAYS TAKE ONE CAPSULE BY MOUTH TWICE A DAY FOR 5 DAYS SOLD: 08/22/2020 [facility] Macrobid 1 UNK 08/22/2020 12:00:00 AM EST active Macrobid 1 eCW1 ([facility]) 40 mg 08/10/2020 12:00:00 AM EST tablet [...] MOUTH EVERY DAY SOLD: 04/15/2020 [facility] [id number] 03/21/2020 12:00:00 AM EDT Suspension 100 RISE OVER ORAL CAVITY WITH 5ML FOR 60 SECONDS THREE TIMES A DAY RISE OVER ORAL CAVITY WITH 5ML FOR 60 SECONDS THREE TIMES A DAY SOLD: 03/21/2020 [facility] [id number] 03/21/2020 12:00:00 AM EDT Suspension 100 RISE OVER ORAL CAVITY WITH 5ML FOR 60 SECONDS THREE TIMES A DAY RISE OVER ORAL CAVITY WITH 5ML FOR 60 SECONDS THREE TIMES A DAY SOLD: 03/31/2020 [facility] [id number] 03/21/2020 12:00:00 AM EDT Suspension 100 RISE [...] Levothyroxine Sodium 0.05 MG Ora l Tablet [place] (Rosemary Alvarez MD [facility]) 0.5 mg/5 mL 06/26/2019 12:00:00 AM EDT [...] 12:00:00 AM EST 1 aborted Levothy roxine [place] (Rosemary Alvarez MD [facility]) Insurance Providers Payer name Policy type / Coverage type Policy ID Covered libertarian ID Covered libertarian's relationship to ratliff Policy [place] Plan Information MEDICARE [id number] SP [id number] [place]/307 [id number] SP [id number] [place]/307 [id number] SP [id number] MEDICARE C [id number] S [id number] [place] BCBS B [id number] S [id number] BCBS of [facility] Other 0 Self 0 Medicare Part B of [place] Other 0 Se lf 0 MEDICARE [id number] SP [id number] ANSI-Medicare Part B [id number] ANSI-Commercial [id number] ANSI-Medicare Part B [id number] ANSI-Commercial [id number] ANSI-Commercial [id number] ANSI-Medicare Part B [id number] ANSI-Medicare Part B [id number] ANSI-Commercial [id number] ANSI-Commercial [id number] ANSI-Medicare Part B [id number] ANSI-Commercial [id number] ANSI-Medicare Part B [id number] ANSI-Commercial [id number] ANSI-Medicare Part B [id number] [place]/307 [id number] SP [id number] MEDICARE [id number] SP [id number] ANSI-Medicare Part B [id number] ANSI-Commercial [id number] MEDICARE [id number] SP [id number] ANSI-Commercial [id number] ANSI-Medicare Part B [id number] [place]/307 [id number] SP [id number] MEDICARE [id number] SP [id number] [place] 302/307 [id number] SP [id number] [place]/307 [id number] SP [id number] MEDICARE [id number] SP [id number] B MEDICARE C [id number] S [id number] B Excellus BCBS Medigap Part B [id number] Self [id number] [place] Medicare Primary Self [place] 306/806 [id number] SP [id number] MEDICARE BLUE PPO 306 [id number] SP [id number] [place] B Family Dependent [place] Medigap Part B Self Medicare Medicare Primary Self EXCELLUS BCBS S [id number] S [id number] [place] 306/806 [id number] SP [id number] Surgeries/Procedures Procedure Description Date Indications Data Source(s) Excise Benign Lesion 1.1-2CM Scalp/Neck/Hands/Feet/Genitalia 04/20/2020 12:00:00 AM EDT MEDENT ([facility] No recent change in medical history No recent change in medi yelitza history 09/18/2019 12:00:00 AM EST RISHI (Rosemary coronado MD [facility]) Currently wearing eyeglasses Currently wearing eyeglasses 12:00:00 AM EST RISHI (Rosemary Alvarez MD [facility]) Reported medical history Kidney Cancer 2011 Reported medical history Kidney Cancer 2012 09/18/2019 12:00:00 AM EST RISHI (Allen Alvarez MD [facility]) History of extracapsular cataract extraction OU [address] Fierro History of extracapsular cataract extraction OU [address] Fierro 09/18/2019 12:00:00 AM EST RISHI (Rosemary coronado MD [facility]) Surgical / procedural history Surgical / procedural history 09/18/2019 12:00:00 AM EST RISHI (Rosemary Alvarez MD [facility]) COMPUTERIZED OPHTHALMIC IMAGING RETINA Scodi Retina, w ith interpretation and report ([place]) 09/18/2019 12:00:00 AM EST RISHI (Allen Alvarez MD [facility]) Comprehensive eye exam established patient (25) Alyssae hensive eye exam established patient (25) 09/18/2019 12:00:00 AM EST RISHI (Rosemary Alvarez MD [facility]) Results ID Date Data Source UA URINALYSIS 08/22/2020 12:00:00 AM EST eCW1 ([facility]) Name Value Range Interpretation Code Description Data Noemi rce(s) Supporting Document(s) Laboratory studies (set) UA URINALYS IS eCW1 ([facility]) ID Date Data Source URINE CULTURE 08/22/2020 12:00:00 AM EST eCW1 ([facility]) Name Value Range Interpretation Code Description Data Noemi rce(s) Supporting Document(s) Laboratory studies (set) URINE CULTU RE eCW1 ([facility]) ID Date Data Source [id number] 04/20/2020 04:38:00 PM EDT MEDENT ([facility], ) Name Value Range Interpretation Code Description Data Noemi rce(s) Supporting Document(s) Surgical pathology study Laboratory test result [facility] ([facility], ) FINAL DIAGNOSIS Skin, left lower [...] Never Smoker completed Never S moker eCW1 ([facility]) Smoking 09/07/2020 12:00:00 AM EST Never Smoker completed Never S moker eCW1 ([facility]) Smoking 02/18/2020 12:00:00 AM EDT Never Smoker completed Never S moker eCW1 ([facility]) Smoking 02/18/2020 12:00:00 AM EDT Never Smoker completed Never S moker eCW1 ([facility]) Smoking 09/18/2019 09:39:11 AM EST Never smoked tobacco (findi ng) completed Never smoked tobacco (finding) RISHI (Rosemary Alvarez MD [facility]) Vital Signs ID Date Data Source UNK Name Value Range Interpretation Code Description Data Source(s) Body weight 53.978 kg 53.978 kg [facility] ([facility]) [place] body weight 125 [lb_av] 125 [lb_av] [facility] Body mass index (BMI) [Ratio] 19.8 kg/m2 19.8 k g/m2 [facility] ([facility]) Body weight 119.00 [lb_av] 119.00 [lb_av] [facility] ([facility]) Body height 65 [in_i] 65 [in_i] [facility] ([facility]) 5'5" Diastolic blood pressure 90 mm[Hg] 90 mm[Hg] [facility] ([facility]) Systolic blood pressure 190 mm[Hg] 190 mm[Hg] [facility] Body surface area Derived from formula 1.59 m2 1.59 m2 [facility] ([facility]) Diastolic blood pressure 78 mm[Hg] 78 mm[Hg] eCW1 ([facility]) Systolic blood pressure 152 mm[Hg] 152 mm[Hg] e CW1 ([facility]) Body temperature 97.9 [degF] 97.9 [degF] eCW1 ( [facility]) Respiratory rate 18 /min 18 /min eCW1 [facility] Heart rate 78 /min 78 /min eCW1 ([facility]) Body mass index (BMI) [Ratio] 19.53 kg/m2 19.53 kg/m2 eCW1 ([facility]) Body height 65 [in_i] 65 [in_i] eCW1 ([facility]) Body weight 117.4 [lb_av] 117.4 [lb_av] eCW1 ([facility]) Body surface area Derived from formula 1.57 m2 1.57 m2 [facility] Body weight 52.277 kg 52.277 kg [facility] ([facility]) [place] body weight 125 [lb_av] 125 [lb_av] MEDEN T ([facility]) Body mass index (BMI) [Ratio] 19.2 kg/m2 19.2 k g/m2 [facility] ([facility]) Body weight 115.25 [lb_av] 115.25 [lb_av] [facility] T ([facility]) Body height 65 [in_i] 65 [in_i] [facility] ([facility]) 5'5" Diastolic blood pressure 80 mm[Hg] 80 mm[Hg] [facility] ([facility]) Systolic blood pressure 130 mm[Hg] 130 mm[Hg] [facility] ([facility]) Body weight 51.484 kg 51.484 kg [facility] ([facility]) Body mass index (BMI) [Ratio] 18.9 kg/m2 18.9 k g/m2 [facility] ([facility]) Body weight 113.50 [lb_av] 113.50 [lb_av] [facility] T ([facility]) Body height 65 [in_i] 65 [in_i] [facility] ([facility]) 5'5" Heart rate 67 /min 67 /min [facility] ([facility]) Diastolic blood pressure 78 mm[Hg] 78 mm[Hg] [facility] ([facility]) Systolic blood pressure 173 mm[Hg] 173 mm[Hg] [facility] ([facility]) Patient Treatment Plan of Care Planned Activity Planned Date Details Description Data Source (s) Levofloxacin 500 MG Oral Tablet 08/26/2020 12:00:00 AM EST eCW1 ([facility]) Levofloxacin 500 MG Oral Tablet 08/26/2020 12:00:00 AM EST eCW1 ([facility]) Macrobid 1 08/22/2020 12:00:00 AM EST e CW1 ([facility]) Macrobid 1 08/22/2020 12:00:00 AM EST e CW1 ([facility])
[2020-10-22 09:45] LABS: BASO % 0.3 % (0.0-1.0); HEMATOCRIT 43.2 % (36.0-47.0); LYMPH # 1.1 10^3/uL (1.5-5.0); LYMPH % 14.3 % (24.0-44.0); MEAN CORPUSCULAR HEMOGLOBIN 30.3 pg (27.0-33.0); MEAN CORPUSCULAR HGB CONC 32.4 g/dl (32.0-36.5); MEAN CORPUSCULAR VOLUME 93.5 fl (80.0-96.0); MONO # 0.6 10^3/uL (0.0-0.8); MONO % 7.9 % (2.0-8.0); NEUTROPHILS # 6.1 10^3/uL (1.5-8.5); PLATELET COUNT, AUTOMATED 308 10^3/uL (150-450); RED BLOOD COUNT 4.62 10^6/uL (4.00-5.40)
[2020-10-22 09:55] LABS: CALCIUM LEVEL 9.6 MG/DL (8.8-10.2); CREATININE FOR GFR 1.09 MG/DL (0.55-1.30); GLOMERULAR FILTRATION RATE 50.3 (>32); POTASSIUM SERUM 3.8 MEQ/L (3.5-5.1)
--- NOTE | 2020-10-22 10:56 | REP ---
INDICATION: headache, HTN. COMPARISON: Comparison CT study September 18, 2016.. TECHNIQUE: Helical scanning is acquired. 5 mm axial images were reformatted. Coronal MPR images were generated. FINDINGS: Digital preliminary scout professional sports radiograph and bone window settings demonstrate extensive metallic and postsurgical changes at the left skull base and left occipital bone. Question metallic shrapnel. These findings are unchanged in any event from the 2017 study. There is no other bony abnormality. There is mild generalized volume loss. Vascular calcifications again noted. Minimal small vessel changes are present. There is no evidence of intracranial hemorrhage, mass, acute infarction, extra-axial fluid collection, or midline shift. IMPRESSION: Posttraumatic or postoperative changes at the left skull base and left occipital bone stable when compared with the 2017 prior study. Generalized volume loss and minimal small vessel changes. Vascular calcification. No acute intracranial abnormality.. <Electronically signed by Parish Ayala > 10/22/20 1050
[2020-10-22] MEDS ORDERED: hydroCHLOROthiazide 12.5 MG CAPSULE PO ONE (13:10)
[2020-10-22] MEDS ORDERED: HYDR12CA PO (13:10)
[2020-10-22 13:18] VITALS: BP 185/82
--- NOTE | 2020-10-22 19:41 | ECGEPIP ---
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
== END 2020-10-22 13:34 | disposition home or self-care (01) ==
LOC: M ED 08:51
DX: I10 Essential (primary) hypertension (principal); E78.5 Hyperlipidemia, unspecified; G43.909 Migraine, unspecified, not intractable, without status migrainosus; C65.2 Malignant neoplasm of left renal pelvis; C66.9 Malignant neoplasm of unspecified ureter; Z88.1 Allergy status to other antibiotic agents; Z88.2 Allergy status to sulfonamides; Z79.899 Other long term (current) drug therapy

== ENCOUNTER → 2020-11-06 | Outpatient (REF) | payer MEDICARE, BC ==
[~2020-11-06] MED LIST changes: +BUDE3CAP; +HYDR12CA PO; +VALS1TAB67 PO
== END ==
LOC: M LAB REF 10:55
PROVIDERS: ATTEND Internal Medicine Gastroenterology
DX: R19.7 Diarrhea, unspecified (principal)

== ENCOUNTER 2021-03-12 19:02 | Emergency (ER) | payer MEDICARE, BC ==
[~2021-03-12] VITALS: Ht 165.1 cm; Wt 52.3 kg
[~2021-03-12 19:02] MED LIST changes: -BUDE3CAP; +BUDE3CAP PO; +CHOL4PW PO; +COVI30VI IM
[2021-03-12] MEDS ORDERED: FURO20TA2 (19:10)
[2021-03-12] MEDS ORDERED: LIDOCAINE 1% MDV 20ML VIAL SC ONE (23:40)
--- NOTE | 2021-03-13 02:01 | REPVR ---
PROCEDURE INFORMATION: Exam: XR Left Tibia and Fibula Exam date and time: 03/13/2021 12:48 AM Age: 89 years old Clinical indication: Trauma TECHNIQUE: Imaging protocol: XR Left tibia and fibula. Views: 2 views. COMPARISON: NM Bone Scan Whole Body 09/25/2014 12:48 PM FINDINGS: Bones/joints: No fracture. No dislocation. Generalized osteopenia. Soft tissues: Normal. IMPRESSION: 1. No acute fracture. 2. Generalized osteopenia. Electronically signed by: rTisha Brumfield On 03/13/2021 02:00:51 AM
[2021-03-13] MEDS ORDERED: CEPHALEXIN 250MG CAPSULE PO ONE (02:05)
[2021-03-13] MEDS ORDERED: BOOSTRIX/ADACEL VACCINE (DIPHTH/PERTUSS/ACELL/TETANUS) 0.5ML SYR IM ONE (02:05)
[2021-03-13] MEDS ORDERED: CEPHALEXIN 500 MG CAP PO ONE (02:10)
[2021-03-13] MEDS ORDERED: CEPH500C PO (02:19)
[2021-03-13 02:28] VITALS: BP 132/82
== END 2021-03-13 02:30 | disposition home or self-care (01) ==
LOC: M ED 19:02
DX: S81.812A Laceration without foreign body, left lower leg, initial encounter (principal); W26.8XXA Contact with other sharp object(s), not elsewhere classified, initial encounter; Y92.009 Unspecified place in unspecified non-institutional (private) residence as the place of occurrence of the external cause; Y93.9 Activity, unspecified; Y99.9 Unspecified external cause status; Z88.0 Allergy status to penicillin; Z88.1 Allergy status to other antibiotic agents; Z88.2 Allergy status to sulfonamides

== ENCOUNTER 2021-03-31 08:58 | Emergency (ER) | payer MEDICARE, BC ==
[~2021-03-31] VITALS: Ht 165.1 cm; Wt 52.3 kg
[~2021-03-31 08:58] MED LIST changes: +CEPH500C PO; +FURO20TA2
[2021-03-31] MEDS ORDERED: CEPH500C PO (10:06)
[2021-03-31 10:20] VITALS: BP 135/65
[2021-04-01] MEDS ORDERED: CEFD300CAP PO (12:23)
== END 2021-03-31 10:15 | disposition home or self-care (01) ==
LOC: M ED 08:58
DX: Z48.00 Encounter for change or removal of nonsurgical wound dressing (principal); S81.802S Unspecified open wound, left lower leg, sequela; Z88.0 Allergy status to penicillin; Z88.1 Allergy status to other antibiotic agents; Z88.2 Allergy status to sulfonamides; Z79.899 Other long term (current) drug therapy; Y92.9 Unspecified place or not applicable; Y93.9 Activity, unspecified; Y99.9 Unspecified external cause status

== ENCOUNTER 2021-04-01 08:30 | Emergency (ER) | payer MEDICARE, BC ==
[~2021-04-01] VITALS: Ht 160 cm; Wt 53.2 kg
[2021-04-01] MEDS ORDERED: CEFD300CAP PO (12:23)
[2021-04-01 12:28] VITALS: BP 178/84
== END 2021-04-01 12:40 | disposition home or self-care (01) ==
LOC: M ED 08:30
DX: N30.00 Acute cystitis without hematuria (principal); R30.0 Dysuria; Z88.0 Allergy status to penicillin; Z88.2 Allergy status to sulfonamides; Z79.899 Other long term (current) drug therapy